=== PATIENT | female | born 1940 | race Caucasian/White ===

== ENCOUNTER 2016-07-17 17:41 | Inpatient (IN) | payer MEDICARE, MEDICAID ==
[~2016-07-17] VITALS: Ht 152.4 cm; Wt 57.8 kg
[~2016-07-17 17:41] MED LIST changes: -ASCO10006 PO; -CEFD300C3 PO; -FURO40TA4 PO; -MAGN500C15 PO; -MULT-868 PO; -RT-ALBUINH IH; -VITA150T PO
--- NOTE | 2016-07-17 18:30 | ED General ---
General Chief Complaint: General Problems/Pain Stated Complaint: LOW HEMOGLOBIN Source of Information: Patient, RN Notes Reviewed Exam Limitations: No Limitations History of Present Illness Time Seen by Provider: 18:25 Initial Comments Weakness and not feeling well since discharge in last 24 hours. States she has had a fever and is anemic. Timing/Duration: 24 Hours Severity: Moderate Modifying Factors: improves with Other (none) Associated Systoms: Cough Fever/Chills Malaise Shortness of Air Weakness Allergies and Home Medications Allergies Coded Allergies: No Allergy Information Available (Unverified , 07/14/16) Home Medications Aspirin 81 Mg Tabec 81 MG PO DAILY (Reported) Calcium Carbonate/Vitamin D3 1 Each Tablet 1 TAB PO BID (Reported) Cholecalciferol (Vitamin D3) 1,000 Unit Tablet 1,000 UNIT PO DAILY (Reported) Clopidogrel Bisulfate 75 Mg Tablet 75 MG PO DAILY (Reported) Furosemide 40 Mg Tablet #30 40 MG PO DAILY Prescribed by: JOHNY TRAN on 07/14/16 1119 Levothyroxine Sodium 200 Mcg Tablet 200 MCG PO DAILY (Reported) Magnesium Oxide 400 Mg Tablet 400 MG PO BID (Reported) Metoprolol Succinate 50 Mg Tab.er.24h 50 MG PO BID (Reported) Phenytoin Sodium Extended 30 Mg Capsule 30 MG PO BID (Reported) Simvastatin 20 Mg Tablet 20 MG PO HS (Reported) Constitutional: see HPI fever malaise weakness Respiratory: see HPI cough dyspnea on exertion short of breath Cardiovascular: see HPI edema : No Psychiatric/Neurological: See HPI Weakness Hematologic/Lymphatic: See HPI Anemia All Other Systems Reviewed Negative Unless Noted: Yes (Negative excepted noted.) Past Lrbybqc-Noiqba-Wjcfce Hx Patient Social History Recent Foreign Travel: No Contact w/Someone Who Travel: No Recent Hopitalizations: No Immunizations Up To Date Tetanus Booster (TDap): Unknown Date of Pneumonia Vaccine: Jul 20, 2011 Date of Influenza Vaccine: Apr 22, 2016 Seasonal Allergies Seasonal Allergies: No Surgeries HX Surgeries: Yes (GASTRIC BYPASS) Surgeries: Section, Hysterectomy Respiratory Hx Respiratory Disorders: No Cardiovascular Hx Cardiac Disorders: Yes (pacemaker) Cardiac Disorders: Hypertension Neurological Hx Neurological Disorders: Yes Neurological Disorders: Seizure Disorder Reproductive System Hx Reproductive Disorders: No Sexually Transmitted Disease: No HIV/AIDS: 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 Genitourinary Hx Genitourinary Disorders: No Gastrointestinal Hx Gastrointestinal Disorders: No Musculoskeletal Hx Musculoskeletal Disorders: No Endocrine Hx Endocrine Disorders: No HEENT HX ENT Disorders: Yes HEENT Disorders: Cataract Cancer Hx Cancer: No Psychosocial Hx Psychiatric Problems: Yes Behavioral Health Disorders: Anxiety Integumentary HX Skin/Integumentary Disorder: No Blood Transfusions Hx Blood Disorders: No Family Medical History Family Medial History: Cardiovascular disease Completed stroke Hypertension Seizure disorder No Family History of: AIDS Abdominal aortic aneurysm [place]'s disease Alcoholism Alzheimer's disease Aphasia Arthritis Asthma Cancer of mouth Cataracts Colon cancer Congenital disease Congenital heart disease Coronary thrombosis Cystic fibrosis Deafness or hearing loss Dementia Diabetes mellitus Drug abuse Dysphasia Fibrocystic disease of breast Gastroenteritis Glaucoma Headache disorder Hypercholesterolemia Infertility Kidney disease Myocardial infarction Neoplasm Not obtainable due to adoption Osteoporosis Parkinson's disease Prostate cancer Psychosocial problem Respiratory disorder Severe allergy Thyroid disease Tuberculosis Visual disorder Physical Exam Vital Signs Vital Sign - Last 12Hours 07/17/16 18:26 Temp 100.0 Pulse 82 Resp 18 B/P 113/70 Pulse Ox 98 O2 Delivery Nasal Cannula Capillary Refill : General Appearance: No Apparent Distress WD/WN Respiratory: No Respiratory Distress Cardiovascular: Regular Rate, Rhythm Gastrointestinal: Non Tender Rectal: Deferred Extremity: Pedal Edema Neurologic/Psychiatric: Alert Oriented x3 No Motor/Sensory Deficits Depressed Affect Skin: Warm/Dry Progress/Results/Core Measures Results/Orders Lab Results Laboratory Tests Test 07/17/16 19:00 07/17/16 20:47 07/18/16 03:40 07/18/16 07:55 Range/Units B-Type Natriuretic Peptide 1350.6 H <100.0 PG/ML Lactic Acid Level 1.1 0.5-2.0 MMOL/L Phenytoin (Dilantin) Level 2.2 L 10.0-20.0 UG/ML Troponin I < 0.30 <0.30 NG/ML Urine Bacteria TRACE /HPF Urine Bilirubin NEGATIVE NEGATIVE Urine Casts NONE /LPF Urine Clarity CLEAR Urine Color YELLOW Urine Crystals NONE /LPF Urine Culture Indicated YES Urine Glucose (UA) NEGATIVE NEGATIVE Urine Ketones NEGATIVE NEGATIVE Urine Leukocyte Esterase 3+ H NEGATIVE Urine Mucus NEGATIVE /LPF Urine Nitrite NEGATIVE NEGATIVE Urine Protein 2+ H NEGATIVE Urine RBC 25-50 H /HPF Urine RBC (Auto) 4+ H NEGATIVE Urine Specific [place] 1.010 L 1.016-1.022 Urine Squamous Epithelial Cells 5-10 /HPF Urine Urobilinogen NORMAL NORMAL MG/DL Urine WBC 10-25 H /HPF Urine pH 6.5 5-9 Stool Occult Blood Immunoassay POSITIVE H NEGATIVE Basophils # (Auto) 0.0 0.0-0.1 10^3/uL Basophils (%) (Auto) 0 0-10 % Eosinophils # (Auto) 0.3 0.0-0.3 10^3/uL Eosinophils (%) (Auto) 5 0-10 % Hematocrit 33 L 35-52 % Hemoglobin 10.1 #L 11.5-16.0 G/DL Lymphocytes # (Auto) 1.0 1.0-4.0 X 10^3 Lymphocytes (%) (Auto) 14 12-44 % Mean Corpuscular Hemoglobin 27 25-34 PG Mean Corpuscular Hemoglobin Concent 31 L 32-36 G/DL Mean Corpuscular Volume 89 80-99 FL Mean Platelet Volume 11.2 H 7.4-10.4 FL Monocytes # (Auto) 0.9 0.0-1.0 X 10^3 Monocytes (%) (Auto) 12 0-12 % Neutrophils # (Auto) 5.0 1.8-7.8 X 10^3 Neutrophils (%) (Auto) 70 42-75 % Platelet Count 205 130-400 10^3/uL Red Blood Count 3.70 L 4.35-5.85 10^6/uL Red Cell Distribution Width 16.4 H 10.0-14.5 % White Blood Count 7.2 4.3-11.0 10^3/uL Test 07/18/16 11:30 Range/Units Stool Occult Blood Immunoassay POSITIVE H NEGATIVE Micro Results Microbiology 07/17/16 Blood Culture - Preliminary, Resulted No growth 07/17/16 Blood Culture - Preliminary, Resulted No growth 07/17/16 Influenza Types A,B Antigen (AMBROSE) - Final, Complete 07/17/16 Urine Culture - Preliminary, Resulted NO GROWTH My Orders Orders-WILVER LANDA DO Saline Lock/Iv-Start (07/17/16 18:31) Ekg Tracing (07/17/16 18:31) BNP (07/17/16 18:31) Lactic Acid Analyzer (07/17/16 18:31) Troponin I (07/17/16 18:31) Ua Culture If Indicated (07/17/16 18:31) Blood Culture (07/17/16 18:31) Influenza A And B Antigens (07/17/16 18:31) Chest 1 View, Ap/Pa Only (07/17/16 18:31) Type And Screen (07/17/16 18:31) Red Cells Leukocytes Reduced (07/17/16 18:31) Cefepime Injection (Maxipime Injection) (07/17/16 20:45) Urine Culture (07/17/16 20:47) Vital Signs/I&O Vital Sign - Last 12Hours 07/18/16 07/18/16 07/18/16 07/18/16 16:00 19:00 20:00 20:03 Temp 99.3 Pulse 92 101 Resp 20 B/P 124/61 Pulse Ox 91 95 90 O2 Delivery Nasal Cannula Nasal Cannula Nasal Cannula O2 Flow Rate 3.00 3.00 3.00 07/18/16 07/18/16 07/19/16 07/19/16 20:51 23:15 00:00 00:10 Temp 98.2 99.3 Pulse 108 96 Resp 20 17 B/P 126/60 128/73 Pulse Ox 91 92 83 93 O2 Delivery Nasal Cannula Nasal Cannula Nasal Cannula Nasal Cannula O2 Flow Rate 3.00 3.00 3.00 3.00 07/19/16 00:59 Pulse 99 ECG Initial ECG Impression Date: Jul 17, 2016 Initial ECG Impression Time: 18:48 Initial ECG Rate: 82 Initial ECG Rhythm: Normal Sinus Initial ECG Impression: Nonspecific Changes Comment RAD Diagnostic Imaging Diagonstic Imaging: Xray Plain Films/CT/US/NM/MRI: chest (? infiltrate right base; no CHF) Departure Communication Time/Spoke to Admitting Phy: 21:00 Impression Impression: Primary Impression: Anemia Additional Impressions: Weakness generalized Acute on chronic renal insufficiency UTI (urinary tract infection) Disposition: ADMITTED INPATIENT Condition: Stable Decision to Admit/Date: Jul 17, 2016 Time/Decision to Admit Time: 21:00 Departure-Patient Inst. Referrals: NO,LOCAL PHYSICIAN (PCP/Family) Primary Care Physician WILVER LANDA DO Jul 17, 2016 18:30
--- NOTE | 2016-07-17 20:19 | Diagnostic Imaging Report ---
EXAMINATION: Portable erect AP chest at 7:39 PM INDICATION: Weakness and cough The cardiomegaly and the left-sided defibrillator device seen on the prior exam of 07/15/16 are again evident and not significantly changed. The interstitial densities in both lungs do not seem quite as prominent as on the prior exam. There is no evidence for failure at this time. The right hemidiaphragm is somewhat indistinct and there may be an element of small amount of atelectasis/infiltrate and/or fluid in this area. The mediastinum is not widened. The osseous structures are intact. IMPRESSION: 1. There may be a small amount of atelectasis/infiltrate and fluid involving the right lung base. If further study is desired, then a followup PA and lateral chest would be recommended. 2. The mild pulmonary congestion noted previously has resolved. There is no acute abnormality identified otherwise. Dictated by: Dictated on workstation # [id number]
[2016-07-17] MEDS ORDERED: CEFEPIME INJECTION 2,000 MG in NORMAL SALINE (BAXTER MINI) 50 ML IV ONE (20:45)
[2016-07-17 20:57] LABS: BILIRUBIN,URINE NEGATIVE (NEGATIVE); KETONES,URINE NEGATIVE (NEGATIVE); LEUKOCYTE ESTERASE ,URINE 3+ (NEGATIVE); NITRITE,URINE NEGATIVE (NEGATIVE); PH,URINE 6.5 (5-9); PROTEIN,URINE 2+ (NEGATIVE); UROBILINOGEN,URINE NORMAL (NORMAL)
[2016-07-17 22:45] VITALS: BP 115/64
[2016-07-17] MEDS ORDERED: NS IV 1000 ML 1,000 ML ONE (23:17)
[2016-07-17 23:47] VITALS: BP 107/65
[2016-07-17 23:52] VITALS: BP 107/65
[2016-07-18] VITALS (9 sets, daily range): BP systolic 105–126; BP diastolic 56–69
[2016-07-18] MEDS ORDERED: RT-ALBUTEROL SULF 2.5 MG/3 ML PRE-MIX VIAL INH PRN
[2016-07-18] MEDS ORDERED: VANCOMYCIN 1 GM ADD-VANTAGE VIAL IV ONE (01:41)
[2016-07-18] MEDS ORDERED: SODIUM CHLORIDE (ADD-VANTAGE) 250 ML ONE (01:41)
[2016-07-18] MEDS ORDERED: LEVOFLOXACIN 750 MG/150 ML D5W (PRE-MIX) IV SCH (01:45)
[2016-07-18] MEDS ORDERED: TEMAZEPAM 15 MG (RESTORIL) CAP PO PRN (01:45)
[2016-07-18] MEDS ORDERED: FUROSEMIDE 40 MG/4 ML INJ (LASIX) IV PRN (01:45)
[2016-07-18] MEDS ORDERED: VANCOMYCIN 1 GM/NS 250 ML IVPB IV SCH ×4 (01:45→21:00)
[2016-07-18] MEDS ORDERED: FUROSEMIDE 40 MG/4 ML INJ (LASIX) IVP ONE (03:00)
[2016-07-18] MEDS ORDERED: CATHETER FLUSH 10 ML SYR IV PRN (07:45)
[2016-07-18] MEDS ORDERED: NS IV 1000 ML 1,000 ML IV SCH (07:45)
[2016-07-18 08:05] LABS: BASOPHILS % (AUTO) 0 % (0-10); EOSINOPHILS # (AUTO) 0.3 10^3/uL (0.0-0.3); EOSINOPHILS % (AUTO) 5 % (0-10); LYMPHOCYTES % (AUTO) 14 % (12-44); MEAN CORPUSCULAR HEMOGLOBIN 27 PG (25-34); MEAN CORPUSCULAR HGB CONC 31 G/DL (32-36); MEAN CORPUSCULAR VOLUME 89 FL (80-99); MEAN PLATELET VOLUME 11.2 FL (7.4-10.4); MONOCYTES # (AUTO) 0.9 X 10^3 (0.0-1.0); MONOCYTES % (AUTO) 12 % (0-12); NEUTROPHILS % (AUTO) 70 % (42-75); PLATELET COUNT 205 10^3/uL (130-400); RED CELL DISTRIBUTION WIDTH 16.4 % (10.0-14.5); WHITE BLOOD COUNT 7.2 10^3/uL (4.3-11.0)
[2016-07-18] MEDS ORDERED: CEFEPIME HCL 2 GM (MAXIPIME) VIAL ONE (09:25)
[2016-07-18] MEDS ORDERED: NORMAL SALINE (BAXTER MINI) 50 ML IV ONE (09:25)
[2016-07-18] MEDS: CATHETER FLUSH 10 ML SYR IV SCH ×2 (09:34→22:46)
[2016-07-18] MEDS ORDERED: CEFEPIME 2 GM/NS 50 ML IVPB IV SCH ×2 (10:00)
--- NOTE | 2016-07-18 11:18 | History & Physical-Hospitalist ---
HPI History of Present Illness: HPI/Chief Complaint The patient is a 75-year-old white female who had been hospitalized last week. She was discharged on 07/14 but she did not leave until 07/15. she returned on 07/17 to the ER complaining of being just generally weak. That had been the substance of her complaints previously. She had a workup for heart disease as she had a previous history of heart disease including stents and a pacemaker. That proved to be stable. It was noted at that time that she had consistent creatinine in the mid 2 range. A search of records previous to that showed that she had been in the 1.3 range in 2015. Her BNP was 2000 and the chest x- ray was consistent with early interstitial edema. She was not taking a diuretic and responded nicely to Lasix. She was informed at discharge that she would need to see the hematology for consideration of erythropoietin and ultimately would need to see nephrology as well. She returned with the complaints of continuing to feel weak. She had refused to consider any plan for residential or home health care. Source: patient Exam Limitations: no limitations Date Seen 07/18/16 Attending Physician Greta Philippe DO PCP No,Local Physician Referring Physician Date of Admission Jul 17, 2016 at 21:06 Home Medications & Allergies Home Medications Reviewed patient Home Medication Reconciliation Form Allergies Coded Allergies: No Allergy Information Available (Unverified , 07/14/16) Past Wgbneoh-Mrkhvl-Wtqmij Hx Patient Social History Alcohol Use: Denies Use Recreational Drug Use: No Smoking Status: Never a Smoker Physical Abuse Screen: No Sexual Abuse: No Recent Foreign Travel: No Contact w/other who traveled: No Recent Hopitalizations: No Recent Infectious Disease Expo: No Immunizations Up To Date Tetanus Booster (TDap): Unknown Date of Pneumonia Vaccine: Jul 20, 2011 Date of Influenza Vaccine: Apr 22, 2016 Seasonal Allergies Seasonal Allergies: No Surgeries HX Surgeries: Yes (GASTRIC BYPASS) Surgeries: Section, Hysterectomy Respiratory Hx Respiratory Disorders: No Cardiovascular Hx Cardiovascular Disorders: Yes (pacemaker) Cardiac Disorders: Hypertension Neurological Hx Neurological Disorders: Yes Neurological Disorders: Seizure Disorder Reproductive System : No Hx Reproductive Disorders: No Sexually Transmitted Disease: No HIV/AIDS: No Genitourinary Hx Genitourinary Disorders: Yes (chronic renal insufficiency) Gastrointestinal Hx Gastrointestinal Disorders: No Musculoskeletal Hx Musculoskeletal Disorders: No Endocrine Hx Endocrine Disorders: No HEENT HX ENT Disorders: Yes HEENT Disorders: Cataract Cancer Hx Cancer: No Psychosocial Hx Psychiatric Problems: Yes Behavioral Health Disorders: Anxiety Integumentary HX Skin/Integumentary Disorder: No Blood Transfusions Hx Blood Disorders: No Family Medical History Family Hx: Cardiovascular disease Completed stroke Hypertension Seizure disorder No Family History of: AIDS Abdominal aortic aneurysm [place]'s disease Alcoholism Alzheimer's disease Aphasia Arthritis Asthma Cancer of mouth Cataracts Colon cancer Congenital disease Congenital heart disease Coronary thrombosis Cystic fibrosis Deafness or hearing loss Dementia Diabetes mellitus Drug abuse Dysphasia Fibrocystic disease of breast Gastroenteritis Glaucoma Headache disorder Hypercholesterolemia Infertility Kidney disease Myocardial infarction Neoplasm Not obtainable due to adoption Osteoporosis Parkinson's disease Prostate cancer Psychosocial problem Respiratory disorder Severe allergy Thyroid disease Tuberculosis Visual disorder Review of Systems Constitutional: see HPI Respiratory: cough dyspnea on exertion Cardiovascular: no symptoms reported Gastrointestinal: no symptoms reported Genitourinary: no symptoms reported Musculoskeletal: muscle weakness Skin: no symptoms reported Psychiatric/Neurological: No Symptoms Reported Physical Exam Physical Exam Vital Signs Capillary Refill : Less Than 3 Seconds General Appearance: Mild Distress Eyes: Bilateral Eye Normal Inspection HEENT: Normal ENT Inspection Neck: Normal Inspection Cardiovascular: Regular Rate, Rhythm No Edema No Gallop No JVD No Murmur Normal Peripheral Pulses Other (Paced ) Gastrointestinal: Normal Bowel Sounds No Organomegaly No Pulsatile Mass Non Tender Soft Back: Normal Inspection No CVA Tenderness No Vertebral Tenderness Neurologic/Psychiatric: Alert Oriented x3 No Motor/Sensory Deficits Normal Mood/Affect Other (the patient appears unable or unwilling to consider any plan of outpatient supportive care) Skin: Normal Color Warm/Dry Lymphatic: No Adenopathy Results Results/Procedures Lab Assessment/Plan Admission Diagnosis 1.anemia secondary to chronic renal failure. 2.chronic renal failure. 3.COPD. 4.deconditioning Assessment and Plan Transfusion. 2.consultation hematology for consideration of erythropoietin Clinical Quality Measures DVT/VTE Risk/Contraindication: Risk Factor Score Per Nursin RFS Level Per Nursing on Admit: 4+=Very High GUILLERMO LAU MD Jul 18, 2016 11:18 Laboratory Tests 07/18/16 07:55 Clinical Quality Measures DVT/VTE Risk/Contraindication: Risk Factor Score Per Nursin RFS Level Per Nursing on Admit: 4+=Very High GUILLERMO LAU MD Jul 18, 2016 11:18
[2016-07-18] MEDS: RT-ALBUTEROL SULF 2.5 MG/3 ML PRE-MIX VIAL INH SCH ×2 (13:21→20:03)
--- NOTE | 2016-07-18 13:41 | Consultation-Cardiology ---
HPI-Cardiology Cardiology Consultation: Date of Consultation 07/18/16 Date of Admission Attending Physician Greta hPilippe DO Admitting Physician Lavonne,Local Physician Consulting Physician Yaneli LISA MD HPI: Chief Complaint: "feeling rotten" This is a 75 year old lady who was recently discharged from the hospital. She had presented with diastolic heart failure, anemia, acute on chronic renal failure. She presents with "feeling rotten". Her Echocardiogram done very recently showed LVH with hyperdynamic EF. Diastolic dysfunction is very likely. Review of Systems-Cardiology Review of Systems Constitutional: malaise tiredness Eyes: No As described under HPI, No no symptoms reported, No blindness, No blurred vision, No contact lenses, No drainage, No decreased acuity, No foreign body sensation, No glasses, No inflammation, No pain, No photophobia, No previous injury, No shadows, No tunnel vision, No other, No vision change Ears/Nose/Throat: No As described under HPI, No no symptoms reported, No chronic hearing loss, No epistaxis, No ear discharge, No ear pain, No loose teeth, No mouth pain, No mouth swelling, No nasal drainage, No nose pain, No recent hearing loss, No throat pain, No throat swelling, No ulcerations, No other Respiratory: shortness of breath Cardiovascular: No no symptoms reported, No As described under HPI, No chest pain, No edema, No irregular heart rate, No lightheadedness, No palpitations, No syncope, No other Gastrointestinal: No no symptoms reported, No As described under HPI, No abdomen distended, No abdominal pain, No blood streaked bowels, No constipation , No diarrhea, No difficulty swallowing, No nausea, No poor appetite, No poor fluid intake, No rectal bleeding, No vomiting, No other, No nausea/vomiting/ diarrhea, No stool coloration changes Genitourinary: No no symptoms reported, No As described under HPI, No burning, No dysuria, No discharge, No frequency, No flank pain, No hematuria, No incontinence, No pain, No urgency, No other, No urine frequency changes, No urine coloration changes Musculoskeletal: No no symptoms reported, No As describe under HPI, No back pain, No gout, No joint pain, No joint swelling, No muscle pain, No muscle stiffness, No neck pain, No other Skin: No no symptoms reported, No As described under HPI, No change in color, No change in hair/nails, No dryness, No lesions, No lumps, No rash, No other, No skin related problems, No ulcerations, No rash on exposed areas, No ulcerations on exposed areas Psychiatric/Neurological: No As described under HPI, No anxiety, No depression , No emotional problems, No focal weakness, No headache, No no symptoms reported , No numbness, No other, No pre-existing deficit, No seizure, No syncope, No tingling, No tremors, No weakness Hematologic: anemia VSM-[id number]-Rgyeln Hx Patient Social History Alcohol Use: Denies Use Recreational Drug Use: No Smoking Status: Never a Smoker Recent Foreign Travel: No Recent Infectious Disease Expo: No Hospitalization with Isolation: Denies Physical Abuse Screen: No Sexual Abuse: No Immunizations Up To Date Tetanus Booster (TDap): Unknown Date of Pneumonia Vaccine: Jul 20, 2011 Date of Influenza Vaccine: Apr 22, 2016 Past Medical History PMH As described under Assessment. Family Medical History Family History: Cardiovascular disease Completed stroke Hypertension Seizure disorder No Family History of: AIDS Abdominal aortic aneurysm [place]'s disease Alcoholism Alzheimer's disease Aphasia Arthritis Asthma Cancer of mouth Cataracts Colon cancer Congenital disease Congenital heart disease Coronary thrombosis Cystic fibrosis Deafness or hearing loss Dementia Diabetes mellitus Drug abuse Dysphasia Fibrocystic disease of breast Gastroenteritis Glaucoma Headache disorder Hypercholesterolemia Infertility Kidney disease Myocardial infarction Neoplasm Not obtainable due to adoption Osteoporosis Parkinson's disease Prostate cancer Psychosocial problem Respiratory disorder Severe allergy Thyroid disease Tuberculosis Visual disorder Allergies and Home Medications Allergies Coded Allergies: No Allergy Information Available (Unverified , 07/14/16) Home Medications Aspirin 81 Mg Tabec 81 MG PO DAILY (Reported) Calcium Carbonate/Vitamin D3 1 Each Tablet 1 TAB PO BID (Reported) Cholecalciferol (Vitamin D3) 1,000 Unit Tablet 1,000 UNIT PO DAILY (Reported) Clopidogrel Bisulfate 75 Mg Tablet 75 MG PO DAILY (Reported) Furosemide 40 Mg Tablet #30 40 MG PO DAILY Prescribed by: GRETA PHILIPPE on 07/14/16 1119 Levothyroxine Sodium 200 Mcg Tablet 200 MCG PO DAILY (Reported) Magnesium Oxide 400 Mg Tablet 400 MG PO BID (Reported) Metoprolol Succinate 50 Mg Tab.er.24h 50 MG PO BID (Reported) Phenytoin Sodium Extended 30 Mg Capsule 30 MG PO BID (Reported) Simvastatin 20 Mg Tablet 20 MG PO HS (Reported) Physical Exam-Cardiology Physical Exam Vital Signs/I&O Vital Sign - Last 12Hours 07/18/16 07/18/16 07/18/16 07/18/16 08:55 10:07 12:30 13:00 Temp 98.5 Pulse 87 84 Resp 20 B/P 121/60 Pulse Ox 93 94 90 O2 Delivery Nasal Cannula Nasal Cannula O2 Flow Rate 3.00 3.00 07/18/16 07/18/16 07/18/16 07/18/16 13:21 16:00 19:00 20:03 Temp 99.3 Pulse 92 101 Resp 20 B/P 124/61 Pulse Ox 87 91 90 O2 Delivery Room Air Nasal Cannula Nasal Cannula O2 Flow Rate 3.00 3.00 Intake and Output 07/18/16 00:00 Intake Total 50 ml Balance 50 ml Capillary Refill : Less Than 3 Seconds Constitutional: No appears stated age, No AAO x 3, No apparent distress, No PERRL, No well-developed, No well-nourished, No other HEENT: No PERRL, No normal ENT inspection, No TMs normal, No pharynx normal, No scleral icterus (R), No scleral icterus (L), No pale conjunctivae (R), No pale conjunctivae (L), No photophobia, No TM abnormal (R), No TM abnormal (L), No pharyngeal erythema, No tonsillar exudate, No other, No discharge, No EOMI, No hearing is well preserved, No hard of hearing, No oral hygience is good, No ulceration, No xanthelasmas are seen Neck: No non-tender, No full range of motion, No supple, No normal inspection, No carotid bruit, No limited range of motion, No lymphadenopathy (R), No lymphadenopathy (L), No tender lateral, No tender midline, No thyromegaly, other (prominent neck veins)No carotid pulses are 2 + bilaterally, No with good upstrokes Respiratory: No accessory muscle use, No respiratory distress, No chest tender , No chest expansion is symmetric, No chest is bilaterally symmetric, No lungs clear to percussion, No lungs clear to auscultation, No crackles, No rhonchi, No rales, No stridor, No wheezing, No pleural rub, No other Cardiovascular: No regular rate-rhythm, No irregularly irregular, No extra beats, No parasternal heave is noted, No JVD, No edema, No bradycardia, No tachycardia, No point of maximal impulse, No cardiac thrills are palpable, No S1 and S2, No gallop/S3, No gallop/S4, No diastolic murmur, No systolic murmur, No friction rub, No click, No other Gastrointestinal: No tender, No soft, No round, No distended, No pulsatile mass , No organomegaly, No guarding, No rebound, No tenderness, No hernia, No mass, No audible bowel sounds, No abnormal bowel sounds, No abdominal bruits, No spleenomegaly, No other Rectal: deferred Extremities: pedal edema Neurologic/Psychiatric: No department mgr II-XII nml as tested, No no motor/sensory deficits, No alert, No normal mood/affect, No oriented x 3, No abnormal cerebellar tests, No abnormal department mgr II-XII, No abnormal gait, No aphasia, No EOM palsy, No facial droop, No motor weakness, No sensory deficit, No depressed affect, No disoriented x 3, No other, No grossly intact, No power is 5/5 both on sides Skin: No normal color, No warm/dry, No cyanosis, No cool, No diaphoresis, No damp, No ecchymosis, No jaundice, No mottled, No pallor, No rash, No tattoos/ piercings, No ulcerations, No rash on exposed areas, No ulcerations on exposed areas, No other Data Review Labs Laboratory Tests 07/17/16 20:47: Urine Bacteria TRACE, Urine Bilirubin NEGATIVE, Urine Casts NONE, Urine Clarity CLEAR, Urine Color YELLOW, Urine Crystals NONE, Urine Culture Indicated YES, Urine Glucose (UA) NEGATIVE, Urine Ketones NEGATIVE, Urine Leukocyte Esterase 3+ H, Urine Mucus NEGATIVE, Urine Nitrite NEGATIVE, Urine Protein 2+H, Urine RBC 25 -50H, Urine RBC (Auto) 4+H, Urine Specific [place] 1.010L, Urine Squamous Epithelial Cells 5-10, Urine Urobilinogen NORMAL, Urine WBC 10-25H, Urine pH 6.5 07/18/16 03:40: Stool Occult Blood Immunoassay POSITIVEH 07/18/16 07:55: Basophils # (Auto) 0.0, Basophils (%) (Auto) 0, Eosinophils # (Auto) 0.3, Eosinophils (%) (Auto) 5, Hematocrit 33L, Hemoglobin 10.1#L, Lymphocytes # (Auto ) 1.0, Lymphocytes (%) (Auto) 14, Mean Corpuscular Hemoglobin 27, Mean Corpuscular Hemoglobin Concent 31L, Mean Corpuscular Volume 89, Mean Platelet Volume 11.2H, Monocytes # (Auto) 0.9, Monocytes (%) (Auto) 12, Neutrophils # ( Auto) 5.0, Neutrophils (%) (Auto) 70, Platelet Count 205, Red Blood Count 3.70L , Red Cell Distribution Width 16.4H, White Blood Count 7.2 07/18/16 11:30: Stool Occult Blood Immunoassay POSITIVEH Microbiology 07/17/16 Blood Culture - Preliminary, Resulted No growth 07/17/16 Influenza Types A,B Antigen (AMBROSE) - Final, Complete 07/17/16 Urine Culture - Preliminary, Resulted NO GROWTH ECG Impression ECG Initial ECG Rhythm: Normal Sinus A/P-Cardiology Assessment/Admission Diagnosis acute on chronic renal failure, anemia, diastolic dysfunction Plan I believe she is not in florid heart failure. Her BNP is better then on her last admission. low dose lasix is ok but targeting significant negative output may result in further worsening of renal insufficiency. Thank you for your consultation. Please call me if you have any questions. Samson Lisa MD, FACP, FACC, FSCAI, FHRS, CCDS Interventional Cardiology Cardiac Electrophysiology Vascular Medicine and Endovascular Interventions Clinical Quality Measures DVT/VTE Risk/Contraindication: Risk Factor Score Per Nursin RFS Level Per Nursing on Admit: 4+=Very High Yaneli LISA MD Jul 18, 2016 1:41 pm
[2016-07-18] MEDS ORDERED: DARBEPOETIN 40 MCG/ML (ARANESP) 1 ML VIAL SC ONE (14:00)
--- NOTE | 2016-07-18 14:49 | Oncology Consultation ---
Visit Information Visit Information Date of Admission Jul 17, 2016 at 21:06 Attending Physician Greta Philippe DO Admitting Physician No,Local Physician Chief Complaint Anemia, chronic renal failure, ? benefit EPO injection Interval History The patient is a 75-year-old white female who was admitted with general weakness , CHF, acute on chronic renal insufficiency. She had a workup for heart disease as she had a previous history of heart disease including stents and a pacemaker. That proved to be's stable. It was noted at that time that she had consistent creatinine in the mid 2 range. Her Cr was 1.3 range in 2015. Her BNP was 2000 and the chest x-ray was consistent with early interstitial edema. She was not taking a diuretic and responded nicely to Lasix. She was informed from last week at discharge that she would need to see the hematology for consideration of erythropoietin and ultimately would need to see nephrology as well. She returned with the complaints of continuing to feel weak. She had refused to consider in the plan for long-term or home health care. She also has a lot of issues with her male friend who put her health issues on the Facebook. She is very upset about it. I consulted the patient on: 07/18/16 14:43 Constitutional: weakness EENTM: no symptoms reported Respiratory: cough short of breath Cardiovascular: edema palpitations Gastrointestinal: no symptoms reported Genitourinary: no symptoms reported Health Status Allergies Coded Allergies: No Allergy Information Available (Unverified , 07/14/16) Home Medications Aspirin (Aspirin Ec 81 Mg) 81 Mg Tabec 81 MG PO DAILY (Reported) Calcium Carbonate/Vitamin D3 (Calcium 600 + D Caplet) 1 Each Tablet 1 TAB PO BID (Reported) Cholecalciferol (Vitamin D3) (Vitamin D3) 1,000 Unit Tablet 1,000 UNIT PO DAILY (Reported) Clopidogrel Bisulfate (Clopidogrel) 75 Mg Tablet 75 MG PO DAILY (Reported) Furosemide (Lasix) 40 Mg Tablet #30 40 MG PO DAILY Prescribed by: GRETA PHILIPPE on 07/14/16 1119 Levothyroxine Sodium (Levothyroxine Sodium) 200 Mcg Tablet 200 MCG PO DAILY ( Reported) Magnesium Oxide (Mag Ox 400) 400 Mg Tablet 400 MG PO BID (Reported) Metoprolol Succinate (Metoprolol Succinate) 50 Mg Tab.er.24h 50 MG PO BID ( Reported) Phenytoin Sodium Extended (Dilantin) 30 Mg Capsule 30 MG PO BID (Reported) Simvastatin (Simvastatin) 20 Mg Tablet 20 MG PO HS (Reported) [id number] Hx Patient Social History Alcohol Use: Denies Use Recreational Drug Use: No Smoking Status: Never a Smoker Recent Foreign Travel: No Contact w/other who traveled: No Recent Infectious Disease Expo: No Recent Hopitalizations: No Physical Abuse Screen: No Sexual Abuse: No Immunizations Up To Date Tetanus Booster (TDap): Unknown Date of Pneumonia Vaccine: Jul 20, 2011 Date of Influenza Vaccine: Apr 22, 2016 Family Medical History Family History: Cardiovascular disease Completed stroke Hypertension Seizure disorder No Family History of: AIDS Abdominal aortic aneurysm [place]'s disease Alcoholism Alzheimer's disease Aphasia Arthritis Asthma Cancer of mouth Cataracts Colon cancer Congenital disease Congenital heart disease Coronary thrombosis Cystic fibrosis Deafness or hearing loss Dementia Diabetes mellitus Drug abuse Dysphasia Fibrocystic disease of breast Gastroenteritis Glaucoma Headache disorder Hypercholesterolemia Infertility Kidney disease Myocardial infarction Neoplasm Not obtainable due to adoption Osteoporosis Parkinson's disease Prostate cancer Psychosocial problem Respiratory disorder Severe allergy Thyroid disease Tuberculosis Visual disorder Physical Exam Vital Signs Vital Sign - Last 12Hours 07/17/16 18:26 Temp 100.0 Pulse 82 Resp 18 B/P 113/70 Pulse Ox 98 O2 Delivery Nasal Cannula Capillary Refill : Less Than 3 Seconds General Appearance: No Apparent Distress HEENT: PERRL/EOMI Neck: Non Tender Supple Respiratory: Lungs Clear No Accessory Muscle Use No Respiratory Distress Cardiovascular: No JVD No Murmur Gastrointestinal: Non Tender Soft Extremity: Swelling (1+ pitting edema both ankles) Neurologic/Psychiatric: Alert Oriented x3 Other (pt was crying and emotional) Data Review Labs Laboratory Tests 07/18/16 07:55 Laboratory Tests 07/17/16 19:00: B-Type Natriuretic Peptide 1350.6H 07/17/16 20:47: Urine Leukocyte Esterase 3+H, Urine Protein 2+H, Urine RBC 25-50H, Urine RBC ( Auto) 4+H, Urine Specific [place] 1.010L, Urine WBC 10-25H 07/18/16 03:40: Stool Occult Blood Immunoassay POSITIVEH 07/18/16 07:55: Hematocrit 33L, Hemoglobin 10.1#L, Mean Corpuscular Hemoglobin Concent 31L, Mean Platelet Volume 11.2H, Red Blood Count 3.70L, Red Cell Distribution Width 16.4H 07/18/16 11:30: Stool Occult Blood Immunoassay POSITIVEH Impression & Plan Impression & Plan IMP: 1. Acute on chronic renal insufficiency, 2. Anemia, s/p 2 units of RBC and Hb is up from 7.4 to 10.1 3. CAD, possible pulmonary edema 4. Pace maker 5. family and social issue Plan: 1. Aranesp 40mcg sq today and can be repeated in 2 weeks if her Hb is below 9 again 2. I will see her as out-pt for follow up in 2-4 weeks. 3. See fitness club manager when discharge 4. Cast Iron Dipper consult. 5. industrial relations worker for discharge plan. 6. Because of recent transfusion, I will not iron study at this point. JERRY RUBALCAVA MD Jul 18, 2016 14:49
[2016-07-19] VITALS: BP 128/73
[2016-07-19] MEDS: ACETAMINOPHEN 325 MG TABLET/CAPLET (TYLENOL) PO PRN ×2 (00:09→04:20)
[2016-07-19 04:00] VITALS: BP 148/75
[2016-07-19] MEDS: CATHETER FLUSH 10 ML SYR IV SCH (05:15)
[2016-07-19 06:00] VITALS: BP 148/75
[2016-07-19] MEDS: RT-ALBUTEROL SULF 2.5 MG/3 ML PRE-MIX VIAL INH SCH (06:58)
[2016-07-19 08:00] VITALS: BP 124/58
[2016-07-19] MEDS ORDERED: MAGN500C15 PO ×2 (09:18)
[2016-07-19] MEDS ORDERED: ASCO10006 PO ×2 (09:18)
[2016-07-19] MEDS ORDERED: RT-ALBUINH IH ×2 (09:18)
[2016-07-19] MEDS ORDERED: MULT-868 PO ×2 (09:18)
[2016-07-19] MEDS ORDERED: VITA150T PO ×2 (09:18)
[2016-07-19] MEDS ORDERED: FURO40TA4 PO ×2 (09:23)
[2016-07-19 12:00] VITALS: BP 140/68
--- NOTE | 2016-07-19 12:01 | Progress Note-Hospitalist ---
Standard Progress Note Progress Notes/Assess & Plan Date Seen 07/19/16 Assess & Plan/Chief Complaint The patient had a hemoglobin went to 10 with the [address] Rubalcava saw her yesterday for consideration of erythropoietin. She received her first dose of erythropoietin yesterday and will receive a second dose today. She was not eager to participate with physical therapy however ultimately did walk as satisfactorily in the holman. The urine culture shows multi floral gram positives in the urine. When informed that she has completed her inpatient needs she again became defensive about being weak and unable to care for herself. She however has been unwilling to consider short-term senior care placement while regaining her strength. Her lack of vigor is a function of her longer term decline both from a pulmonary status and renal function/chronic anemia status. Accordingly she will be discharged with home health nursing and physical therapy. I'm not optimistic that this will be a success. She will see Dr. RUBALCAVA in the hematology oncology clinic in a week for a scheduled erythropoietin dose. Physical exam: The patient exhibits some difficulty in focusing on the present and what she needs to do for herself. Lungs are clear to auscultation breath sounds are somewhat shallow. CV is regular. Abdomen is soft. Extremities show no pedal edema. Impression: Recent mild congestive failure. 2 COPD. 3 chronic renal failure. 4.chronic anemia secondary to number 3 Plan: Discharge with home health nursing and PT Labs Laboratory Tests 07/18/16 07:55 Final Diagnosis Chronic anemia secondary to renal failure. 2.chronic renal failure. 3.COPD. 4.deconditioning, multifactorial GUILLERMO LAU MD Jul 19, 2016 12:01
--- NOTE | 2016-07-19 12:12 | Discharge Inst-Home Health ---
Discharge Inst-to Home Health Patient Instructions Patient Instructions/FollowUp: Medications as detailed on the discharge list. Resume your oxygen and breathing treatments as before Home health nursing and physical therapy will be supplied you See Dr. Kline in one week at the cancer center. Patient Problems: COPD. 2. chronic renal failure with resultant anemia. 3.arteriosclerotic heart disease. 4.general deconditioning Goal: Stabilizing blood count. Arranging outpatient nephrology consultation. Physical therapy for strengthening and conditioning [facility], [place] DISCHARGE ORDERS Allergies: Coded Allergies: No Allergy Information Available (Unverified , 07/14/16) Height (Feet): 5 Height (Inches): 0.00 Weight (Pounds): 127 Weight (Ounces): 8.0 Home Health Need/Face to Face Reason Pt Homebound Chronic pulmonary disease plus anemia I Have Seen Pt [id number]: Yes Date of Face to Face: Jul 19, 2016 Discharged To: Home Diagnosis/Conditions HH Order: COPD. 2.chronic renal failure with resultant anemia. 3.arteriosclerotic heart disease. 4.general deconditioning y Consult/Follow Up/New Order *I certify that based on my findings, the following services are medically necessary Home Health Services: Yes Services: Nursing Services, Physical Therapy-Evaluate & Treat My clinical findings support the need for the above services; see Diagnosis. [facility] Orders Nursing for continuing medical issues, use of oxygen, drug administration, Physical therapy for moravian to ability to manage activities of daily living Dicharge Diet: Regular Diet Daily Activity as Tolerated: Yes Discharge Medications: New, Converted, or Re-newed RX: Transmited to Pharmacy I certify that this patient is under my care and that I, a nurse practitioner or a physician; a lpn or medical assistant working with me, had a face to face encounter that - meets the physician face to face encounter requirements with this patient as dated. GUILLERMO LAU MD Jul 19, 2016 12:12
[2016-07-19] MEDS ORDERED: CEFD300C3 PO ×2 (12:14)
--- NOTE | 2016-07-19 13:19 | Occ Therapy Progress Note ---
Therapy Progress Note Order received for OT eval and treat. Chart review completed. Attempted evaluation at 1310. Pt sitting in chair. Pt states she is exhausted and refused therapy at this time. Pt states she is being discharged today and has no questions or concerns, states she will have someone to assist her at home if needed. Pt sitting in chair with all needs met. 1, refused DENISHA RODRIGUEZ OT Jul 19, 2016 13:19
--- NOTE | 2016-07-19 13:31 | Physical Therapy Evaluation ---
PT Evaluation-General Medical Diagnosis Admission Date Jul 17, 2016 at 21:06 Medical Diagnosis: anemia Onset Date: Jul 17, 2016 Therapy Diagnosis Therapy Diagnosis: generalized weakness/debility Height/Weight Height (Feet): 5 Height (Inches): 0.00 Weight (Pounds): 127 Weight (Ounces): 8.0 Precautions Precautions/Isolations: Seizure, Fall Prevention Referral Physician: Shea Reason for Referral: Evaluation/Treatment Medical History Pertinent Medical History: CAD (pacemaker), HTN, MA Additional Medical History prior hospital stay last week with same c/o Current History DC to home 07/15 and returned 07/17/16 to ED with c/o generalized weakness Reviewed History: Yes Social History Home: Apartment Current Living Status: Alone Prior/Core FIM Prior Level of Function Functional [place] Measure 0=Not Assessed/NA 4=Minimal Assistance 1=Total Assistance 5=Supervision or Setup 2=Maximal Assistance 6=Modified [place] 3=Moderate Assistance 7=Complete [place] Bed Mobility: 6 Transfers (B,C,W/C) (FIM): 6 Gait: 6 PT Evaluation-Current Subjective Patient initially declined PT stating she was too tired and just wanted to go back to bed and sleep. After much encouragement, patient reluctantly agrees to PT. Pain Numeric Pain Scale: 0-No Pain Location: No Pain Reported Objective Patient Orientation: Normal For Age Problem Solving: Fair Attachments: Oxygen, IV ROM/Strength ROM Lower Extremities bilateral LE WFL Strenght Lower Extremities left LE 3/5 grossly; 3+/5 grossly right LE Integumentary/Posture Integumentary refer to nursing notes Bowel Incontinence: No Bladder Incontinence: No Posture WNL Neuromuscular (Tone, Coordination, Reflexes) diminished coordination due to inactivity PLOF Sensory Vision: Wears Glasses Hearing: Functional Sensation Right Lower Extremit: Impaired Sensation Left Lower Extremity: Impaired Transfers Functional [place] Measure 0=Not Assessed/NA 4=Minimal Assistance 1=Total Assistance 5=Supervision or Setup 2=Maximal Assistance 6=Modified [place] 3=Moderate Assistance 7=Complete [place] Transfers (B, C, W/C) (FIM): 5 Scootin Sit to/from Stand: 5 Gait Mode of Locomotion: Walk Anticipated Mode of Locomotion: Walk Gait (FIM): 5 Distance (FIM): 3=150 ft Distance: 150' Gait Level of Assist: 5 Gait Persons Needed: 1 Gait Assistive Device: FWW Comments/Gait Description steady, functional Balance Sitting Static: Normal Sitting Dynamic: Normal Standing Static: Normal Standing Dynamic: Normal Assessment/Needs 75 y.o. inactive female, will benefit from short term skilled PT to address functional strength and mobility to improve current LOF and to safely return to home with home health intervention at maximum LOF. Rehab Potential: Fair Post Rehab Potential-Barriers: activity level PT Short Term Goals Short Term Goals Time Frame: Jul 22, 2016 Transfers (B,C,W/C) (FIM): 6 Gait (FIM): 6 Distance (FIM): 3=150 ft Gait Level of Assist: 6 Gait Assistive Device: FWW PT Plan Problem List Problem List: Activity Tolerance, Functional Strength, Safety Treatment/Plan Treatment Plan: Continue Plan of Care Treatment Plan: Education, Functional Activity Brandy, Functional Strength, Gait , Safety, Therapeutic Exercise, Transfers Treatment Duration: Jul 22, 2016 # of days/week 4 Visits Per Week: 4 Pt/Family Agrees w/Plan: Yes Safety Risks/Education Patient Education: Disease Process, Safety Issues Teaching Recipient: Patient Teaching Methods: Discussion Response to Teaching: Verbalize Understanding, Reinforcement Needed Discharge Recommendations Therapy D/C Recommendations: Physical Therapy Home Care Time/GCodes Time In: 1125 Time Out: 1135 Total Billed Treatment Time: 10 Total Billed Treatment 1 visit EVL 10 min G Codes Necessary: MITESH Perez PT Jul 19, 2016 13:30
[2016-07-19 14:34] VITALS: BP 140/68
--- NOTE | 2016-07-20 14:44 | Physician Query-General Query ---
Physician Query-General Query to Physician: Please give final diagnosis thank you PHYSICIAN RESPONSE: Based on the clinical findings in the record, please respond to the query above on this document as an addendum. Possible, probable, or questionable diagnosis can be coded for INPATIENTS ONLY. Physician Response: If you have questions please contact: Electronic Design Engineer: Ext: Thank you for your time and cooperation. Clinical Brigadier/Electronic Design Engineer This is a permanent part of the medical record KAJAL GOODSON Jul 20, 2016 14:44
[2016-07-20] MEDS ORDERED: TROUGH ORDER-PHARMACY XX NR (20:00)
--- NOTE | 2016-07-26 14:48 | Physician Query-General Query ---
Physician Query-General Query to Physician: Please clarify if patient was in Acute Renal failure on admit thank you PHYSICIAN RESPONSE: Based on the clinical findings in the record, please respond to the query above on this document as an addendum. Possible, probable, or questionable diagnosis can be coded for INPATIENTS ONLY. Physician Response: Physician Response CHRONIC RENAL FAILURE, NO ACUTE COMPONENT If you have questions please contact: Press Assistant: Ext: Thank you for your time and cooperation. Clinical Seam Finisher/Press Assistant This is a permanent part of the medical record KAJAL GOODSON Jul 26, 2016 14:47 GUILLERMO LAU MD Aug 10, 2016 14:55
== END 2016-07-19 14:38 | disposition home health service (06) | DRG 292 ==
LOC: EDUNIT# 17:41 → ER 17:43 → ICU 21:06 → 4TH 22:17
PROVIDERS: ADMIT Internal Medicine; ATTEND Internal Medicine
DX: I13.0 Hypertensive heart and chronic kidney disease with heart failure and stage 1 through stage 4 chronic kidney disease, or unspecified chronic kidney disease (principal); N18.9 Chronic kidney disease, unspecified; D63.1 Anemia in chronic kidney disease; I50.30 Unspecified diastolic (congestive) heart failure; N39.0 Urinary tract infection, site not specified; G40.909 Epilepsy, unspecified, not intractable, without status epilepticus; F41.9 Anxiety disorder, unspecified; R53.1 Weakness; I25.10 Atherosclerotic heart disease of native coronary artery without angina pectoris; Z98.84 Bariatric surgery status; Z95.0 Presence of cardiac pacemaker
CPT/HCPCS: 36415; 71010; 80053; 80185; 81000; 82274; 83605; 83880; 84484; 85025; 86850; 86900; 86901; 86920; 87040; 87088; 87804; 93005; 94640; 94664; 94760; 96365

== ENCOUNTER → 2016-07-17 | Outpatient (CLI) | payer MEDICARE, MEDICAID ==
[~2016-07-17] MED LIST: ASCO10006 PO; ASP81TEC PO; ASPI-875 PO; CALC-80 PO; CEFD300C3 PO; CHOL100061 PO; CLOP75TA28 PO; FURO-124 PO; FURO40TA4 PO; KCL20TCR PO; LEVO200T6 PO; LEVO300T5 PO; MAGN400T6 PO; MAGN500C15 PO; METO-272 PO; MULT-868 PO; PHEN-633 PO; PHEN300C4 PO; PHEN30CA PO; RT-ALBUINH IH; SIMV20TA3 PO; VITA150T PO
[2016-07-17 15:56] LABS: BASOPHILS % (AUTO) 0 % (0-10); EOSINOPHILS # (AUTO) 0.4 10^3/uL (0.0-0.3); EOSINOPHILS % (AUTO) 6 % (0-10); LYMPHOCYTES # (AUTO) 1.2 X 10^3 (1.0-4.0); LYMPHOCYTES % (AUTO) 17 % (12-44); MEAN CORPUSCULAR HEMOGLOBIN 27 PG (25-34); MEAN CORPUSCULAR HGB CONC 29 G/DL (32-36); MEAN CORPUSCULAR VOLUME 92 FL (80-99); MEAN PLATELET VOLUME 11.1 FL (7.4-10.4); MONOCYTES % (AUTO) 14 % (0-12); NEUTROPHILS # (AUTO) 4.2 X 10^3 (1.8-7.8); NEUTROPHILS % (AUTO) 63 % (42-75); PLATELET COUNT 232 10^3/uL (130-400); RED BLOOD COUNT 2.79 10^6/uL (4.35-5.85); RED CELL DISTRIBUTION WIDTH 16.3 % (10.0-14.5); WHITE BLOOD COUNT 6.8 10^3/uL (4.3-11.0)
[2016-07-17 16:07] LABS: ALBUMIN 3.3 G/DL (3.2-4.5); BILIRUBIN,TOTAL 0.4 MG/DL (0.1-1.0); CALCIUM 7.9 MG/DL (8.5-10.1); CREATININE SERUM 1.72 MG/DL (0.60-1.30); POTASSIUM 4.3 MMOL/L (3.6-5.0); TOTAL PROTEIN 5.3 G/DL (6.4-8.2)
== END ==
LOC: HH 15:47
PROVIDERS: ATTEND Family Medicine
DX: D64.9 Anemia, unspecified (principal); I50.9 Heart failure, unspecified
CPT/HCPCS: 80053; 85025

== ENCOUNTER → 2016-07-20 | Outpatient (CLI) | payer MEDICARE, MEDICAID ==
[~2016-07-20] MED LIST changes: +ASCO10006 PO; +CEFD300C3 PO; +FURO40TA4 PO; +MAGN500C15 PO; +MULT-868 PO; +RT-ALBUINH IH; +VITA150T PO
[2016-07-20 15:11] LABS: BASOPHILS % (AUTO) 0 % (0-10); EOSINOPHILS # (AUTO) 0.4 10^3/uL (0.0-0.3); EOSINOPHILS % (AUTO) 5 % (0-10); LYMPHOCYTES # (AUTO) 1.3 X 10^3 (1.0-4.0); LYMPHOCYTES % (AUTO) 17 % (12-44); MEAN CORPUSCULAR HEMOGLOBIN 27 PG (25-34); MEAN CORPUSCULAR HGB CONC 30 G/DL (32-36); MEAN CORPUSCULAR VOLUME 92 FL (80-99); MEAN PLATELET VOLUME 11.7 FL (7.4-10.4); MONOCYTES % (AUTO) 14 % (0-12); NEUTROPHILS # (AUTO) 4.5 X 10^3 (1.8-7.8); NEUTROPHILS % (AUTO) 63 % (42-75); PLATELET COUNT 201 10^3/uL (130-400); RED BLOOD COUNT 3.43 10^6/uL (4.35-5.85); RED CELL DISTRIBUTION WIDTH 17.1 % (10.0-14.5); WHITE BLOOD COUNT 7.2 10^3/uL (4.3-11.0)
[2016-07-20 15:27] LABS: CALCIUM 8.2 MG/DL (8.5-10.1); CREATININE SERUM 1.67 MG/DL (0.60-1.30); POTASSIUM 4.1 MMOL/L (3.6-5.0)
== END ==
LOC: HH 15:04
PROVIDERS: ATTEND Internal Medicine
DX: I13.0 Hypertensive heart and chronic kidney disease with heart failure and stage 1 through stage 4 chronic kidney disease, or unspecified chronic kidney disease (principal); I50.9 Heart failure, unspecified; N18.9 Chronic kidney disease, unspecified
CPT/HCPCS: 80048; 85025

== ENCOUNTER → 2016-07-25 | Outpatient (CLI) | payer MEDICARE, MEDICAID ==
--- NOTE | 2016-07-26 12:06 | Physician Query-General Query ---
Physician Query-General Query to Physician: Please clarify if the patient was in acute renal failure on admit thank you PHYSICIAN RESPONSE: Based on the clinical findings in the record, please respond to the query above on this document as an addendum. Possible, probable, or questionable diagnosis can be coded for INPATIENTS ONLY. Physician Response: If you have questions please contact: Employee Relations Assistant: Ext: Thank you for your time and cooperation. Clinical Tour Consultant/Employee Relations Assistant This is a permanent part of the medical record KAJAL GOODSON Jul 26, 2016 12:06
== END ==
LOC: HH 15:54
PROVIDERS: ATTEND Family Medicine
DX: D64.9 Anemia, unspecified (principal)
CPT/HCPCS: 85014; 85018

== ENCOUNTER 2016-10-24 11:41 | Outpatient (RCR) | payer MEDICARE, MEDICAID ==
[2016-08-09 11:34] LABS: BASOPHILS % (AUTO) 0 % (0-10); EOSINOPHILS # (AUTO) 0.2 10^3/uL (0.0-0.3); EOSINOPHILS % (AUTO) 3 % (0-10); LYMPHOCYTES # (AUTO) 1.2 X 10^3 (1.0-4.0); LYMPHOCYTES % (AUTO) 15 % (12-44); MEAN CORPUSCULAR HEMOGLOBIN 27 PG (25-34); MEAN CORPUSCULAR HGB CONC 29 G/DL (32-36); MEAN CORPUSCULAR VOLUME 94 FL (80-99); MONOCYTES # (AUTO) 0.8 X 10^3 (0.0-1.0); MONOCYTES % (AUTO) 10 % (0-12); NEUTROPHILS # (AUTO) 5.8 X 10^3 (1.8-7.8); NEUTROPHILS % (AUTO) 72 % (42-75); PLATELET COUNT 309 10^3/uL (130-400); RED BLOOD COUNT 3.76 10^6/uL (4.35-5.85); RED CELL DISTRIBUTION WIDTH 19.8 % (10.0-14.5)
[2016-08-09 12:20] LABS: ALBUMIN 3.8 G/DL (3.2-4.5); BILIRUBIN,TOTAL 0.4 MG/DL (0.1-1.0); CALCIUM 8.9 MG/DL (8.5-10.1); CREATININE SERUM 1.92 MG/DL (0.60-1.30); TOTAL PROTEIN 6.4 G/DL (6.4-8.2)
[2016-08-09 12:41] LABS: THYROID STIMULATING HORMONE 29.99 UIU/ML (0.35-4.94)
[2016-08-09 14:07] LABS: %SAT TOTAL IRON BINDING CAPIC 8 % (15-50); TIBC 436 ug/dL (280-380)
[2016-08-10 07:39] LABS: FERRITIN 15 ng/mL (15-150); UIBC 402 ug/dL (55-450)
[2016-08-23 11:50] LABS: BASOPHILS % (AUTO) 0 % (0-10); EOSINOPHILS # (AUTO) 0.3 10^3/uL (0.0-0.3); EOSINOPHILS % (AUTO) 4 % (0-10); LYMPHOCYTES # (AUTO) 1.6 X 10^3 (1.0-4.0); LYMPHOCYTES % (AUTO) 24 % (12-44); MEAN CORPUSCULAR HEMOGLOBIN 27 PG (25-34); MEAN CORPUSCULAR HGB CONC 30 G/DL (32-36); MEAN CORPUSCULAR VOLUME 91 FL (80-99); MEAN PLATELET VOLUME 10.5 FL (7.4-10.4); MONOCYTES # (AUTO) 0.7 X 10^3 (0.0-1.0); MONOCYTES % (AUTO) 10 % (0-12); NEUTROPHILS # (AUTO) 4.1 X 10^3 (1.8-7.8); NEUTROPHILS % (AUTO) 62 % (42-75); PLATELET COUNT 239 10^3/uL (130-400); RED CELL DISTRIBUTION WIDTH 19.8 % (10.0-14.5); WHITE BLOOD COUNT 6.6 10^3/uL (4.3-11.0)
[2016-09-12 13:46] LABS: BASOPHILS % (AUTO) 0 % (0-10); EOSINOPHILS # (AUTO) 0.3 10^3/uL (0.0-0.3); EOSINOPHILS % (AUTO) 4 % (0-10); LYMPHOCYTES # (AUTO) 1.8 X 10^3 (1.0-4.0); LYMPHOCYTES % (AUTO) 26 % (12-44); MEAN CORPUSCULAR HEMOGLOBIN 27 PG (25-34); MEAN CORPUSCULAR HGB CONC 30 G/DL (32-36); MEAN CORPUSCULAR VOLUME 89 FL (80-99); MEAN PLATELET VOLUME 10.1 FL (7.4-10.4); MONOCYTES # (AUTO) 0.6 X 10^3 (0.0-1.0); MONOCYTES % (AUTO) 8 % (0-12); NEUTROPHILS # (AUTO) 4.4 X 10^3 (1.8-7.8); NEUTROPHILS % (AUTO) 62 % (42-75); PLATELET COUNT 358 10^3/uL (130-400); RED BLOOD COUNT 3.81 10^6/uL (4.35-5.85); RED CELL DISTRIBUTION WIDTH 19.8 % (10.0-14.5); WHITE BLOOD COUNT 7.1 10^3/uL (4.3-11.0)
[2016-09-12 14:16] LABS: ALBUMIN 3.8 G/DL (3.2-4.5); BILIRUBIN,TOTAL 0.4 MG/DL (0.1-1.0); CREATININE SERUM 1.76 MG/DL (0.60-1.30); POTASSIUM 3.9 MMOL/L (3.6-5.0); TOTAL PROTEIN 6.5 G/DL (6.4-8.2)
[2016-09-12 14:40] LABS: THYROID STIMULATING HORMONE 0.77 UIU/ML (0.35-4.94)
[~2016-10-24 11:41] MED LIST changes: +CYANOCOBALAMIN INJ 1000 MCG/ML (CANCER CENTER) ONE; +DARBEPOETIN 40 MCG/ML (ARANESP) 1 ML VIAL SC SCH
[2016-10-24 12:20] LABS: BASOPHILS % (AUTO) 0 % (0-10); EOSINOPHILS # (AUTO) 0.3 10^3/uL (0.0-0.3); EOSINOPHILS % (AUTO) 5 % (0-10); LYMPHOCYTES # (AUTO) 1.9 X 10^3 (1.0-4.0); LYMPHOCYTES % (AUTO) 27 % (12-44); MEAN CORPUSCULAR HEMOGLOBIN 27 PG (25-34); MEAN CORPUSCULAR HGB CONC 30 G/DL (32-36); MEAN CORPUSCULAR VOLUME 89 FL (80-99); MEAN PLATELET VOLUME 11.7 FL (7.4-10.4); MONOCYTES # (AUTO) 0.7 X 10^3 (0.0-1.0); MONOCYTES % (AUTO) 9 % (0-12); NEUTROPHILS # (AUTO) 4.4 X 10^3 (1.8-7.8); NEUTROPHILS % (AUTO) 60 % (42-75); PLATELET COUNT 285 10^3/uL (130-400); RED BLOOD COUNT 3.65 10^6/uL (4.35-5.85); RED CELL DISTRIBUTION WIDTH 17.2 % (10.0-14.5); WHITE BLOOD COUNT 7.3 10^3/uL (4.3-11.0)
== END 2016-11-07 | disposition home or self-care (01) ==
LOC: ONC 11:41
PROVIDERS: ATTEND Internal Medicine Hematology & Oncology
DX: N18.4 Chronic kidney disease, stage 4 (severe) (principal); D63.1 Anemia in chronic kidney disease; I13.0 Hypertensive heart and chronic kidney disease with heart failure and stage 1 through stage 4 chronic kidney disease, or unspecified chronic kidney disease; I50.9 Heart failure, unspecified; E03.9 Hypothyroidism, unspecified; D64.89 Other specified anemias; Z79.899 Other long term (current) drug therapy
CPT/HCPCS: 36415; 80053; 82728; 83540; 84443; 85025; 96372; 99213

== ENCOUNTER 2017-01-31 14:03 | Outpatient (RCR) | payer MEDICARE, MEDICAID ==
[2016-11-11 10:07] LABS: BASOPHILS % (AUTO) 0 % (0-10); EOSINOPHILS # (AUTO) 0.4 10^3/uL (0.0-0.3); EOSINOPHILS % (AUTO) 5 % (0-10); LYMPHOCYTES # (AUTO) 2.5 X 10^3 (1.0-4.0); LYMPHOCYTES % (AUTO) 29 % (12-44); MEAN CORPUSCULAR HEMOGLOBIN 26 PG (25-34); MEAN CORPUSCULAR HGB CONC 29 G/DL (32-36); MEAN CORPUSCULAR VOLUME 88 FL (80-99); MEAN PLATELET VOLUME 11.7 FL (7.4-10.4); MONOCYTES # (AUTO) 0.8 X 10^3 (0.0-1.0); MONOCYTES % (AUTO) 10 % (0-12); NEUTROPHILS # (AUTO) 4.8 X 10^3 (1.8-7.8); NEUTROPHILS % (AUTO) 56 % (42-75); PLATELET COUNT 303 10^3/uL (130-400); RED BLOOD COUNT 3.63 10^6/uL (4.35-5.85); RED CELL DISTRIBUTION WIDTH 17.6 % (10.0-14.5); WHITE BLOOD COUNT 8.5 10^3/uL (4.3-11.0)
[2016-11-11 10:30] LABS: ALBUMIN 4.1 G/DL (3.2-4.5); BILIRUBIN,TOTAL 0.7 MG/DL (0.1-1.0); CREATININE SERUM 2.02 MG/DL (0.60-1.30); POTASSIUM 4.2 MMOL/L (3.6-5.0); TOTAL PROTEIN 6.6 G/DL (6.4-8.2)
[2016-11-23 09:20] LABS: BASOPHILS % (AUTO) 1 % (0-10); EOSINOPHILS # (AUTO) 0.5 10^3/uL (0.0-0.3); EOSINOPHILS % (AUTO) 6 % (0-10); LYMPHOCYTES # (AUTO) 2.1 X 10^3 (1.0-4.0); LYMPHOCYTES % (AUTO) 27 % (12-44); MEAN CORPUSCULAR HEMOGLOBIN 25 PG (25-34); MEAN CORPUSCULAR HGB CONC 29 G/DL (32-36); MEAN CORPUSCULAR VOLUME 86 FL (80-99); MONOCYTES # (AUTO) 0.8 X 10^3 (0.0-1.0); MONOCYTES % (AUTO) 11 % (0-12); NEUTROPHILS # (AUTO) 4.4 X 10^3 (1.8-7.8); NEUTROPHILS % (AUTO) 56 % (42-75); PLATELET COUNT 375 10^3/uL (130-400); RED BLOOD COUNT 3.96 10^6/uL (4.35-5.85); RED CELL DISTRIBUTION WIDTH 18.7 % (10.0-14.5); WHITE BLOOD COUNT 7.8 10^3/uL (4.3-11.0)
[2016-12-07 09:49] LABS: BASOPHILS % (AUTO) 0 % (0-10); EOSINOPHILS # (AUTO) 0.4 10^3/uL (0.0-0.3); EOSINOPHILS % (AUTO) 5 % (0-10); LYMPHOCYTES # (AUTO) 1.6 X 10^3 (1.0-4.0); LYMPHOCYTES % (AUTO) 20 % (12-44); MEAN CORPUSCULAR HEMOGLOBIN 28 PG (25-34); MEAN CORPUSCULAR HGB CONC 29 G/DL (32-36); MEAN CORPUSCULAR VOLUME 95 FL (80-99); MEAN PLATELET VOLUME 12.1 FL (7.4-10.4); MONOCYTES # (AUTO) 0.7 X 10^3 (0.0-1.0); MONOCYTES % (AUTO) 9 % (0-12); NEUTROPHILS # (AUTO) 5.3 X 10^3 (1.8-7.8); NEUTROPHILS % (AUTO) 65 % (42-75); PLATELET COUNT 221 10^3/uL (130-400); RED BLOOD COUNT 3.87 10^6/uL (4.35-5.85); RED CELL DISTRIBUTION WIDTH 26.7 % (10.0-14.5); WHITE BLOOD COUNT 8.1 10^3/uL (4.3-11.0)
[2016-12-21 15:01] LABS: BASOPHILS % (AUTO) 0 % (0-10); EOSINOPHILS # (AUTO) 0.3 10^3/uL (0.0-0.3); EOSINOPHILS % (AUTO) 4 % (0-10); LYMPHOCYTES # (AUTO) 1.7 X 10^3 (1.0-4.0); LYMPHOCYTES % (AUTO) 27 % (12-44); MEAN CORPUSCULAR HEMOGLOBIN 29 PG (25-34); MEAN CORPUSCULAR HGB CONC 30 G/DL (32-36); MEAN CORPUSCULAR VOLUME 97 FL (80-99); MEAN PLATELET VOLUME 12.4 FL (7.4-10.4); MONOCYTES # (AUTO) 0.5 X 10^3 (0.0-1.0); MONOCYTES % (AUTO) 8 % (0-12); NEUTROPHILS # (AUTO) 3.9 X 10^3 (1.8-7.8); NEUTROPHILS % (AUTO) 61 % (42-75); PLATELET COUNT 198 10^3/uL (130-400); RED BLOOD COUNT 4.14 10^6/uL (4.35-5.85); WHITE BLOOD COUNT 6.4 10^3/uL (4.3-11.0)
[2016-12-28 13:42] LABS: BASOPHILS % (AUTO) 0 % (0-10); EOSINOPHILS # (AUTO) 0.3 10^3/uL (0.0-0.3); EOSINOPHILS % (AUTO) 5 % (0-10); LYMPHOCYTES % (AUTO) 27 % (12-44); MEAN CORPUSCULAR HEMOGLOBIN 30 PG (25-34); MEAN CORPUSCULAR HGB CONC 30 G/DL (32-36); MEAN CORPUSCULAR VOLUME 98 FL (80-99); MEAN PLATELET VOLUME 11.9 FL (7.4-10.4); MONOCYTES # (AUTO) 0.5 X 10^3 (0.0-1.0); MONOCYTES % (AUTO) 7 % (0-12); NEUTROPHILS # (AUTO) 4.5 X 10^3 (1.8-7.8); NEUTROPHILS % (AUTO) 61 % (42-75); PLATELET COUNT 219 10^3/uL (130-400); RED BLOOD COUNT 4.21 10^6/uL (4.35-5.85); RED CELL DISTRIBUTION WIDTH 23.6 % (10.0-14.5); WHITE BLOOD COUNT 7.4 10^3/uL (4.3-11.0)
[2017-01-03 13:52] LABS: BASOPHILS % (AUTO) 0 % (0-10); EOSINOPHILS # (AUTO) 0.3 10^3/uL (0.0-0.3); EOSINOPHILS % (AUTO) 5 % (0-10); LYMPHOCYTES # (AUTO) 1.9 X 10^3 (1.0-4.0); LYMPHOCYTES % (AUTO) 25 % (12-44); MEAN CORPUSCULAR HEMOGLOBIN 30 PG (25-34); MEAN CORPUSCULAR HGB CONC 30 G/DL (32-36); MEAN CORPUSCULAR VOLUME 97 FL (80-99); MEAN PLATELET VOLUME 12.6 FL (7.4-10.4); MONOCYTES # (AUTO) 0.5 X 10^3 (0.0-1.0); MONOCYTES % (AUTO) 6 % (0-12); NEUTROPHILS # (AUTO) 4.8 X 10^3 (1.8-7.8); NEUTROPHILS % (AUTO) 64 % (42-75); PLATELET COUNT 212 10^3/uL (130-400); RED BLOOD COUNT 4.44 10^6/uL (4.35-5.85); RED CELL DISTRIBUTION WIDTH 21.9 % (10.0-14.5); WHITE BLOOD COUNT 7.5 10^3/uL (4.3-11.0)
[2017-01-03 14:00] LABS: ALBUMIN 4.2 GM/DL (3.2-4.5); BILIRUBIN,TOTAL 0.7 MG/DL (0.1-1.0); CREATININE SERUM 1.83 MG/DL (0.60-1.30); ICTERUS -0.1 (-100-1.9); TOTAL PROTEIN 7.8 GM/DL (6.4-8.2)
[2017-01-03 14:05] LABS: POTASSIUM 5.5 MMOL/L (3.6-5.0)
[2017-01-18 09:50] LABS: BASOPHILS % (AUTO) 0 % (0-10); EOSINOPHILS # (AUTO) 0.5 10^3/uL (0.0-0.3); EOSINOPHILS % (AUTO) 6 % (0-10); LYMPHOCYTES # (AUTO) 1.8 X 10^3 (1.0-4.0); LYMPHOCYTES % (AUTO) 22 % (12-44); MEAN CORPUSCULAR HEMOGLOBIN 30 PG (25-34); MEAN CORPUSCULAR HGB CONC 31 G/DL (32-36); MEAN CORPUSCULAR VOLUME 97 FL (80-99); MEAN PLATELET VOLUME 11.9 FL (7.4-10.4); MONOCYTES # (AUTO) 0.7 X 10^3 (0.0-1.0); MONOCYTES % (AUTO) 8 % (0-12); NEUTROPHILS # (AUTO) 5.3 X 10^3 (1.8-7.8); NEUTROPHILS % (AUTO) 64 % (42-75); PLATELET COUNT 199 10^3/uL (130-400); RED BLOOD COUNT 4.29 10^6/uL (4.35-5.85); RED CELL DISTRIBUTION WIDTH 19.9 % (10.0-14.5); WHITE BLOOD COUNT 8.3 10^3/uL (4.3-11.0)
[~2017-01-31 14:03] MED LIST changes: +FERRIC CARBOXYMALTOSE (CANCER) 750 MG in NS (IVPB) CANCER CENTER 250 ML IV SCH
[2017-01-31 15:14] LABS: BASOPHILS % (AUTO) 0 % (0-10); EOSINOPHILS # (AUTO) 0.4 10^3/uL (0.0-0.3); EOSINOPHILS % (AUTO) 6 % (0-10); LYMPHOCYTES # (AUTO) 1.9 X 10^3 (1.0-4.0); LYMPHOCYTES % (AUTO) 27 % (12-44); MEAN CORPUSCULAR HEMOGLOBIN 30 PG (25-34); MEAN CORPUSCULAR HGB CONC 30 G/DL (32-36); MEAN CORPUSCULAR VOLUME 99 FL (80-99); MEAN PLATELET VOLUME 12.2 FL (7.4-10.4); MONOCYTES # (AUTO) 0.6 X 10^3 (0.0-1.0); MONOCYTES % (AUTO) 8 % (0-12); NEUTROPHILS % (AUTO) 58 % (42-75); PLATELET COUNT 177 10^3/uL (130-400); RED BLOOD COUNT 4.37 10^6/uL (4.35-5.85); RED CELL DISTRIBUTION WIDTH 18.2 % (10.0-14.5); WHITE BLOOD COUNT 6.9 10^3/uL (4.3-11.0)
== END 2017-02-09 | disposition home or self-care (01) ==
LOC: ONC 14:03
PROVIDERS: ATTEND Internal Medicine Hematology & Oncology
DX: N18.4 Chronic kidney disease, stage 4 (severe) (principal); D63.1 Anemia in chronic kidney disease; I13.0 Hypertensive heart and chronic kidney disease with heart failure and stage 1 through stage 4 chronic kidney disease, or unspecified chronic kidney disease; I50.9 Heart failure, unspecified; E03.9 Hypothyroidism, unspecified; D64.89 Other specified anemias; Z79.899 Other long term (current) drug therapy
CPT/HCPCS: 36415; 80053; 82728; 83540; 85025; 96365; 96372; 99213

== ENCOUNTER 2017-02-27 10:42 | Outpatient (RCR) | payer MEDICARE, MEDICAID ==
[2017-02-13 09:22] LABS: BASOPHILS % (AUTO) 0 % (0-10); EOSINOPHILS # (AUTO) 0.3 10^3/uL (0.0-0.3); EOSINOPHILS % (AUTO) 5 % (0-10); LYMPHOCYTES % (AUTO) 28 % (12-44); MEAN CORPUSCULAR HEMOGLOBIN 31 PG (25-34); MEAN CORPUSCULAR HGB CONC 31 G/DL (32-36); MEAN CORPUSCULAR VOLUME 97 FL (80-99); MEAN PLATELET VOLUME 12.2 FL (7.4-10.4); MONOCYTES # (AUTO) 0.7 X 10^3 (0.0-1.0); MONOCYTES % (AUTO) 9 % (0-12); NEUTROPHILS # (AUTO) 4.2 X 10^3 (1.8-7.8); NEUTROPHILS % (AUTO) 58 % (42-75); PLATELET COUNT 236 10^3/uL (130-400); RED BLOOD COUNT 4.42 10^6/uL (4.35-5.85); RED CELL DISTRIBUTION WIDTH 16.9 % (10.0-14.5); WHITE BLOOD COUNT 7.3 10^3/uL (4.3-11.0)
[~2017-02-27 10:42] MED LIST changes: -CYANOCOBALAMIN INJ 1000 MCG/ML (CANCER CENTER) ONE; -FERRIC CARBOXYMALTOSE (CANCER) 750 MG in NS (IVPB) CANCER CENTER 250 ML IV SCH
[2017-02-27 11:29] LABS: BASOPHILS % (AUTO) 0 % (0-10); EOSINOPHILS # (AUTO) 0.4 10^3/uL (0.0-0.3); EOSINOPHILS % (AUTO) 5 % (0-10); LYMPHOCYTES % (AUTO) 25 % (12-44); MEAN CORPUSCULAR HEMOGLOBIN 31 PG (25-34); MEAN CORPUSCULAR HGB CONC 31 G/DL (32-36); MEAN CORPUSCULAR VOLUME 101 FL (80-99); MEAN PLATELET VOLUME 11.8 FL (7.4-10.4); MONOCYTES # (AUTO) 0.6 X 10^3 (0.0-1.0); MONOCYTES % (AUTO) 8 % (0-12); NEUTROPHILS # (AUTO) 4.8 X 10^3 (1.8-7.8); NEUTROPHILS % (AUTO) 62 % (42-75); PLATELET COUNT 216 10^3/uL (130-400); RED BLOOD COUNT 4.08 10^6/uL (4.35-5.85); RED CELL DISTRIBUTION WIDTH 16.6 % (10.0-14.5); WHITE BLOOD COUNT 7.9 10^3/uL (4.3-11.0)
[2017-02-27 11:57] LABS: ALBUMIN 4.1 GM/DL (3.2-4.5); BILIRUBIN,TOTAL 0.4 MG/DL (0.1-1.0); CALCIUM 9.3 MG/DL (8.5-10.1); CREATININE SERUM 1.9 MG/DL (0.60-1.30); POTASSIUM 4.5 MMOL/L (3.6-5.0); TOTAL PROTEIN 6.8 GM/DL (6.4-8.2)
[2017-02-27 12:17] LABS: THYROID STIMULATING HORMONE 3.19 UIU/ML (0.35-4.94)
== END 2017-04-15 | disposition home or self-care (01) ==
LOC: ONC 10:42
PROVIDERS: ATTEND Internal Medicine Hematology & Oncology
DX: N18.4 Chronic kidney disease, stage 4 (severe) (principal); D63.1 Anemia in chronic kidney disease; I13.0 Hypertensive heart and chronic kidney disease with heart failure and stage 1 through stage 4 chronic kidney disease, or unspecified chronic kidney disease; I50.9 Heart failure, unspecified; E03.9 Hypothyroidism, unspecified; D64.89 Other specified anemias; Z79.899 Other long term (current) drug therapy
CPT/HCPCS: 36415; 80053; 82728; 83540; 84443; 85025; 99213

== ENCOUNTER 2017-05-01 09:01 | Outpatient (RCR) | payer MEDICARE, MEDICAID ==
[~2017-05-01 09:01] MED LIST changes: +METO-370 PO
[2017-05-01 09:17] LABS: BASOPHILS % (AUTO) 0 % (0-10); EOSINOPHILS # (AUTO) 0.3 10^3/uL (0.0-0.3); EOSINOPHILS % (AUTO) 4 % (0-10); HEMATOCRIT 41 % (35-52); HEMOGLOBIN 12.9 G/DL (11.5-16.0); LYMPHOCYTES # (AUTO) 2.3 X 10^3 (1.0-4.0); LYMPHOCYTES % (AUTO) 29 % (12-44); MEAN CORPUSCULAR HEMOGLOBIN 32 PG (25-34); MEAN CORPUSCULAR HGB CONC 31 G/DL (32-36); MEAN CORPUSCULAR VOLUME 103 FL (80-99); MEAN PLATELET VOLUME 12.3 FL (7.4-10.4); MONOCYTES # (AUTO) 0.7 X 10^3 (0.0-1.0); MONOCYTES % (AUTO) 8 % (0-12); NEUTROPHILS # (AUTO) 4.8 X 10^3 (1.8-7.8); NEUTROPHILS % (AUTO) 59 % (42-75); PLATELET COUNT 221 10^3/uL (130-400); RED BLOOD COUNT 3.99 10^6/uL (4.35-5.85); RED CELL DISTRIBUTION WIDTH 13.1 % (10.0-14.5)
[2017-05-01 09:39] LABS: ALBUMIN 3.9 GM/DL (3.2-4.5); BILIRUBIN,TOTAL 0.5 MG/DL (0.1-1.0); CREATININE SERUM 1.41 MG/DL (0.60-1.30); POTASSIUM 4.1 MMOL/L (3.6-5.0); TOTAL PROTEIN 6.8 GM/DL (6.4-8.2)
== END 2017-07-30 | disposition home or self-care (01) ==
LOC: ONC 09:01
PROVIDERS: ATTEND Internal Medicine Hematology & Oncology
DX: N18.4 Chronic kidney disease, stage 4 (severe) (principal); D63.1 Anemia in chronic kidney disease; I13.0 Hypertensive heart and chronic kidney disease with heart failure and stage 1 through stage 4 chronic kidney disease, or unspecified chronic kidney disease; I50.9 Heart failure, unspecified; E03.9 Hypothyroidism, unspecified; D64.89 Other specified anemias; Z79.899 Other long term (current) drug therapy
CPT/HCPCS: 36415; 80053; 82728; 83540; 84443; 85025; 99213

== ENCOUNTER 2017-08-02 15:59 | Inpatient (IN) | payer MEDICARE, MEDICAID ==
[2017-08-02] VITALS (7 sets, daily range): BP systolic 105–128; BP diastolic 58–95
[~2017-08-02] VITALS: Ht 152.4 cm; Wt 57.7 kg
[~2017-08-02 15:59] MED LIST changes: -DARBEPOETIN 40 MCG/ML (ARANESP) 1 ML VIAL SC SCH
[2017-08-02] MEDS ORDERED: fentaNYL INJECTION 100 MCG/2 ML AMP IVP PRN (17:15)
[2017-08-02] MEDS ORDERED: ALPRAZolam 0.25 MG (XANAX) TAB PO PRN (17:15)
[2017-08-02] MEDS ORDERED: POLYETHYLENE GLYCOL 17 GM (MIRALAX) PACK PO PRN (17:15)
[2017-08-02] MEDS ORDERED: MAGNESIUM 1 GM/100 ML IVPB 100 ML IV SCH (17:15)
[2017-08-02] MEDS ORDERED: HYDROcodone/APAP 5 MG/325 MG (LORTAB) TAB PO PRN (17:15)
[2017-08-02] MEDS ORDERED: ONDANSETRON 4 MG/2 ML (SDV) Z0FRAN IVP PRN (17:15)
[2017-08-02] MEDS ORDERED: ACETAMINOPHEN 500 MG TAB (TYLENOL) PO PRN (17:15)
--- OUTSIDE RECORDS SUMMARY | 2017-08-02 17:28 | XMS REPORT ---
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
--- OUTSIDE RECORDS SUMMARY | 2017-08-02 17:28 | XMS REPORT ---
Author Author DEANNA BROWN [facility] e[employer] Address Unknown Phone Unavailable Care Team Providers Care Manager Export Name Role Phone DEANNA BROWN CP Unavailable Allergies, Adverse Reactions, Alerts Substance Reaction Event Type N.K.D.A. 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 Active Assessment Renal insufficiency 593.9 Active Assessment Hypomagnesemia 275.2 Active Assessment 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 Active Assessment Epilepsy 345.90 Active Medications Medication Code System Code Instructions Start Date End Date Status Dosage Calcium [facility] [address] 600 MG Orally 2 times a day 1 tablet with meals Metoprolol Succinate ER [facility] [address]-57 50 MG Orally 2 times a day 1 tablet Vitamin D (Cholecalciferol) [facility] [address]-76 1000 UNIT Orally Once a day 1 tablet Levothyroxine Sodium [facility] [address]-46 200 MCG Orally Once a day 1 tablet Dilantin [facility] [address]-46 30 MG Orally Twice a day 1 capsule Aspir-81 [facility] [address]-33 81 MG Orally Once a day 1 tablet Vitamin B-12 CR [facility] [address]-49 1000 MCG Orally Once a day 1 tablet Simvastatin [facility] [address]-91 20 MG Orally Once a day 1 tablet in the evening Magnesium Oxide [facility] [address]-33 500 MG Orally Once a day 1 tablet Klor-Con M20 [facility] [address]-97 20 MEQ Orally Twice a day 1 tablet Plavix [facility] [address]-58 75 MG Orally Once a day 1 tablet Procedures Procedure Coding System Code Date Office Visit, Est Pt., Level 4 CPT-4 49792 Mar 18, 2015 VENIPUNCT, ROUTINE* CPT-4 69424 Mar 18, 2015 [facility] VISIT ESTABLISHED PATIENT CPT-4 G0467 Mar 18, 2015 Vital Signs Date/Time: Mar 18, 2015 Temperature 97.2 F Weight 122.8 lbs Height 60 in BMI 23.98 Index Blood Pressure Diastolic 70 mmHg Blood Pressure Systolic 138 mmHg Cardiac Monitoring Heart Rate 78 bpm Results Name Result Date Reference Range Unit Abnormality Flag ROUTINE VENIPUNCTURE MAGNESIUM, SERUM Summary Purpose eClinicalWorks Submission
--- OUTSIDE RECORDS SUMMARY | 2017-08-02 17:28 | XMS REPORT ---
Author DEANNA Russell [facility] eClinicalWorks Address Unknown Phone Unavailable Care Team Providers Care Electronic Warfare Officer Name Role Phone DEANNA BROWN Unavailable Allergies, Adverse Reactions, Alerts Substance Reaction Event Type N.K.D.A. Info Not Available Non Drug Allergy Problems Problem Type Condition Code Onset Dates Condition Status Assessment Cardiac pacemaker Z95.0 Active Problem Alteration in mobility due to weakness R53.1 Active Assessment Essential hypertension I10 Active Problem Cardiac pacemaker Z95.0 Active Problem Acquired hypothyroidism E03.9 Active Problem Essential hypertension I10 Active Problem Chronic kidney disease (CKD) stage G3a/A1, moderately decreased glomerular filtration rate (GFR) between 45-59 mL/min/1.73 square meter and albuminuria creatinine ratio less than 30 mg/g N18.3 Active Problem Mixed hyperlipidemia E78.2 Active Problem Asthma J45.909 Active Problem Other generalized epilepsy, not intractable, 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 Assessment Chronic kidney disease (CKD) stage G3a/A1, moderately decreased glomerular filtration rate (GFR) between 45-59 mL/min/1.73 square meter and albuminuria creatinine ratio less than 30 mg/g N18.3 Active Assessment Other generalized epilepsy, not intractable, 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 Assessment Alteration in mobility due to weakness R53.1 Active Assessment Asthma J45.909 Active Assessment Mixed hyperlipidemia E78.2 Active Assessment Acquired hypothyroidism E03.9 Active Medications Medication Code System Code Instructions Start Date End Date Status Dosage Vitamin B-12 CR [facility] [address]-98 1000 MCG Orally Once a day 1 tablet Plavix [facility] 15709101718 75 Orally Once a day 1 tablet Vitamin D (Cholecalciferol) [facility] [address]-18 1000 UNIT Orally Once a day 1 tablet Magnesium Oxide [facility] [address]-86 500 MG Orally Once a day 1 tablet Levothyroxine Sodium [facility] [address]-93 200 MCG Orally Once a day 1 tablet Aspir-81 [facility] [address]-33 81 MG Orally Once a day 1 tablet Simvastatin [facility] [address]-51 20 MG Orally Once a day 1 tablet in the evening Dilantin [facility] [address]-97 30 MG Orally Twice a day 1 capsule Metoprolol Succinate ER [facility] [address]-15 50 MG Orally 2 times a day 1 tablet Quad Cane [facility] 8225-497864 Jun 10, 2015 as directed Toprol XL [facility] 45115616750 50 Orally 2 times a day 1 tablet Klor-Con M20 [facility] 07227612567 20 Orally Twice a day 1 tablet Calcium [facility] [address]56 600 MG Orally 2 times a day 1 tablet with meals Procedures Procedure Coding System Code Date VENIPUNCT, ROUTINE* CPT-4 44301 Jun 10, 2015 [facility] VISIT ESTABLISHED PATIENT CPT-4 G0467 Jun 10, 2015 [facility] NOBLL Jun 10, 2015 Office Visit, Est Pt., Level 4 CPT-4 99749 Jun 10, 2015 Vital Signs Date/Time: Jun 10, 2015 Temperature 97.4 F Weight 125.6 lbs Height 60 in BMI 24.53 Index Blood Pressure Diastolic 70 mmHg Blood Pressure Systolic 162 mmHg Cardiac Monitoring Heart Rate 101 bpm Results Name Result Date Reference Range Unit Abnormality Flag ROUTINE VENIPUNCTURE Summary Purpose eClinicalWorks Submission
--- OUTSIDE RECORDS SUMMARY | 2017-08-02 17:29 | XMS REPORT ---
Author DEANNA Russell Organization [employer] Address Unknown Phone Unavailable Care Team Providers Care Blockman Name Role Phone DEANNA BROWN CP Unavailable Allergies No Known Allergies Problems Problem Type Condition Code Onset Dates Condition Status Problem Alteration in mobility due to weakness R53.1 Active Assessment Chronic kidney disease (CKD) stage G4/A1, severely decreased glomerular filtration rate (GFR) between 15-29 mL/min/1.73 square meter and albuminuria creatinine ratio less than 30 mg/g N18.4 Active Problem Cardiac pacemaker Z95.0 Active Problem [...] not intractable, 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 Medications No Known Medications Results No Known Results Summary Purpose eClinicalWorks Submission
--- OUTSIDE RECORDS SUMMARY | 2017-08-02 17:29 | XMS REPORT ---
Author Author DEANNA BROWN Organization [employer] Address Unknown Phone Unavailable Care Team Providers Care Utility Tech Name Role Phone DEANNA BROWN CP Unavailable Allergies No Known Allergies Problems Problem Type Condition Code Onset Dates Condition Status Problem Alteration in mobility due to weakness R53.1 Active Problem Cardiac pacemaker Z95.0 Active Problem [...]
--- OUTSIDE RECORDS SUMMARY | 2017-08-02 17:29 | XMS REPORT ---
Author DONNA Muniz [facility] eClinicalWorks Address Unknown Phone Unavailable Care Team Providers Care Director Of Catering Sales Name Role Phone DONNA EMERY CP Unavailable Allergies No Known Allergies Problems Problem Type Condition Code Onset Dates Condition Status Assessment Encounter for immunization Z23 Active Problem Asthma, unspecified, unspecified status 493.90 Active Problem 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 Active Problem Hypertension 997.91 Active Problem Other and unspecified hyperlipidemia 272.4 Active Problem Essential hypertension, benign 401.1 Active Problem Unspecified hypothyroidism 244.9 Active Problem Unspecified epilepsy without mention of intractable epilepsy 345.90 Active Medications No Known Medications Procedures Procedure Coding System Code Date SINGLE IMMUNIZATION ADMIN CPT-4 48170 Apr 24, 2015 FLUZONE TRIV HIGH DOSE (65 & UP)-SANOFI PASTEUR-2014 CPT-4 74643 Apr 24, 2015 Results No Known Results Immunizations Vaccine Administration Date FLUZONE TRIV HIGH DOSE (65 & UP)-SANOFI PASTEUR-2014Apr 24, 2015 Summary Purpose eClinicalWorks Submission
[2017-08-02] MEDS ORDERED: CATHETER FLUSH 10 ML SYR IV PRN (17:30)
--- OUTSIDE RECORDS SUMMARY | 2017-08-02 17:30 | XMS REPORT | Continuity of Care Document ---
Author Author [facility] Organization [facility] Address Unknown Phone Unavailable Allergies Active Description Code Type Severity Reaction Onset Reported/Identified Relationship to Patient Clinical Status Yes aspirin [id number] Drug Allergy Unknown N/A 07/21/2007 Yes No Allergy Information Available [id number] Drug Allergy Unknown N/A 2015 Medications There is no data. Problems Date Dx Coded Attending Type Code Diagnosis Diagnosed By 02/24/2014 KENTON GILBERT DO Ot 298.9 02/24/2014 KENTON GILBERT DO Ot 412 02/24/2014 KENTON GILBERT DO Ot 729.89 02/24/2014 KENTON GILBERT DO Ot V12.54 02/26/2014 GUILLERMO LAU MD Ot 272.0 02/26/2014 GUILLERMO LAU MD Ot 300.00 02/26/2014 SID HUERTAS, GUILLERMO Franklin Ot 345.10 02/26/2014 SID HUERTAS, GUILLERMO [place] Ot 401.9 02/26/2014 SID HUERTAS, GUILLERMO [place] Ot 780.79 02/26/2014 SID HUERTAS, GUILLERMO [place] Ot 784.59 02/26/2014 SID HUERTAS, GUILLERMO Franklin Ot V12.54 02/26/2014 GUILLERMO LAU MD Ot V45.86 07/29/2014 MADL COMPUTER ENGINEER, DEANNA L 244.9 HYPOTHYROIDISM 07/29/2014 MADL COMPUTER ENGINEER, DEANNA L 272.4 OTHER AND UNSPECIFIED HYPERLIPIDEMIA 07/29/2014 MADL COMPUTER ENGINEER, DEANNA L 345.90 EPILEPSY UNSPECIFIED WITHOUT INTRACTABLE EPILEPSY 07/29/2014 MADL COMPUTER ENGINEER, DEANNA L 401.1 HYPERTENSION, BENIGN ESSENTIAL 07/29/2014 MADL COMPUTER ENGINEER, DEANNA L 493.90 ASTHMA UNSPECIFIED 07/29/2014 MADL COMPUTER ENGINEER, DEANNA L V45.01 CARDIAC PACEMAKER IN SITU 07/29/2014 EMERY DO, DONNA K 244.9 HYPOTHYROIDISM 07/29/2014 EMERY DO, DONNA K 272.4 OTHER AND UNSPECIFIED HYPERLIPIDEMIA 07/29/2014 EMERY DO, DONNA K 345.90 EPILEPSY UNSPECIFIED WITHOUT INTRACTABLE EPILEPSY 07/29/2014 EMERY DO, DONNA K 401.1 HYPERTENSION, BENIGN ESSENTIAL 07/29/2014 EMERY DO, DONNA K 493.90 ASTHMA UNSPECIFIED 07/29/2014 EMERY DO, DONNA K V45.01 CARDIAC PACEMAKER IN SITU 07/29/2014 MADL COMPUTER ENGINEER, DEANNA L 244.9 HYPOTHYROIDISM 07/29/2014 MADL COMPUTER ENGINEER, DEANNA L 272.4 OTHER AND UNSPECIFIED HYPERLIPIDEMIA 07/29/2014 MADL COMPUTER ENGINEER, DEANNA L 345.90 EPILEPSY UNSPECIFIED WITHOUT INTRACTABLE EPILEPSY 07/29/2014 MADL COMPUTER ENGINEER, DEANNA L 401.1 HYPERTENSION, BENIGN ESSENTIAL 07/29/2014 MADL COMPUTER ENGINEER, DEANNA L 493.90 ASTHMA UNSPECIFIED 07/29/2014 MADL COMPUTER ENGINEER, DEANNA L V45.01 CARDIAC PACEMAKER IN SITU 07/29/2014 MADL COMPUTER ENGINEER, DEANNA L 244.9 HYPOTHYROIDISM 07/29/2014 MADL COMPUTER ENGINEER, DEANNA L 272.4 OTHER AND UNSPECIFIED HYPERLIPIDEMIA 07/29/2014 MADL COMPUTER ENGINEER, DEANNA L 345.90 EPILEPSY UNSPECIFIED WITHOUT INTRACTABLE EPILEPSY 07/29/2014 MADL COMPUTER ENGINEER, DEANNA L 401.1 HYPERTENSION, BENIGN ESSENTIAL 07/29/2014 MADL COMPUTER ENGINEER, DEANNA L 493.90 ASTHMA UNSPECIFIED 07/29/2014 MADL COMPUTER ENGINEER, DEANNA L V45.01 CARDIAC PACEMAKER IN SITU 10/10/2014 GUILLERMO LAU MD Ot 345.90 10/10/2014 GUILLERMO LAU MD Ot V58.69 10/22/2014 MADL COMPUTER ENGINEER, DEANNA L 593.9 UNSPECIFIED DISORDER OF KIDNEY AND URETER 07/14/2016 TRAN DO, JOHNY Ot D64.9 ANEMIA, UNSPECIFIED 07/14/2016 TRAN DO, JOHNY Ot E78.5 HYPERLIPIDEMIA, UNSPECIFIED 07/14/2016 TRAN DO, JOHNY Ot F41.9 ANXIETY DISORDER, UNSPECIFIED 07/14/2016 TRAN DO, JOHNY Ot G40.909 EPILEPSY, UNSP, NOT INTRACTABLE, WITHOUT 07/14/2016 TRAN DO, JOHNY Ot 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 07/14/2016 TRAN DO, JOHNY Ot I25.2 OLD MYOCARDIAL INFARCTION 07/14/2016 TRAN DO, JOHNY Ot I50.9 HEART FAILURE, UNSPECIFIED 07/14/2016 TRAN DO, JOHNY Ot N18.9 CHRONIC KIDNEY DISEASE, UNSPECIFIED 07/14/2016 TRAN DO, JOHNY Ot R53.81 OTHER MALAISE 07/14/2016 TRAN DO, JOHNY Ot Z86.73 PRSNL HX OF TIA (TIA), AND CEREB INFRC W 07/14/2016 TRAN DO, JOHNY Ot Z95.810 PRESENCE OF AUTOMATIC (IMPLANTABLE) CARD 07/14/2016 TRAN DO, JOHNY Ot Z98.84 BARIATRIC SURGERY STATUS 07/15/2016 TRAN DO, JOHNY Ot D64.9 ANEMIA, UNSPECIFIED 07/15/2016 TRAN DO, JOHNY Ot E78.5 HYPERLIPIDEMIA, UNSPECIFIED 07/15/2016 TRAN DO, JOHNY Ot F41.9 ANXIETY DISORDER, UNSPECIFIED 07/15/2016 TRAN DO, JOHNY Ot G40.909 EPILEPSY, UNSP, NOT INTRACTABLE, WITHOUT 07/15/2016 TRAN DO, JOHNY Ot 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 07/15/2016 TRAN DO, JOHNY Ot I25.2 OLD MYOCARDIAL INFARCTION 07/15/2016 TRAN DO, JOHNY Ot I50.9 HEART FAILURE, UNSPECIFIED 07/15/2016 TRAN DO, JOHNY Ot N18.9 CHRONIC KIDNEY DISEASE, UNSPECIFIED 07/15/2016 TRAN DO, JOHNY Ot R53.81 OTHER MALAISE 07/15/2016 TRAN DO, JOHNY Ot Z86.73 PRSNL HX OF TIA (TIA), AND CEREB INFRC W 07/15/2016 TRAN DO, JOHNY Ot Z95.810 PRESENCE OF AUTOMATIC (IMPLANTABLE) CARD 07/15/2016 TRAN DO, JOHNY Ot Z98.84 BARIATRIC SURGERY STATUS 07/15/2016 TRAN DO, JOHNY Ot D64.9 ANEMIA, UNSPECIFIED 07/15/2016 TRAN DO, JOHNY Ot E78.5 HYPERLIPIDEMIA, UNSPECIFIED 07/15/2016 TRAN DO, JOHNY Ot F41.9 ANXIETY DISORDER, UNSPECIFIED 07/15/2016 TRAN DO, JOHNY Ot G40.909 EPILEPSY, UNSP, NOT INTRACTABLE, WITHOUT 07/15/2016 TRAN DO, JOHNY Ot 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 07/15/2016 TRAN DO JOHNY Ot I25.2 OLD MYOCARDIAL INFARCTION 07/15/2016 TRAN DO JOHNY Ot I27.2 OTHER SECONDARY PULMONARY HYPERTENSION 07/15/2016 TRAN DO JOHNY Ot 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 07/15/2016 TRAN DO, JOHNY Ot N17.9 ACUTE KIDNEY FAILURE, UNSPECIFIED 07/15/2016 TRAN DO, JOHNY Ot N18.9 CHRONIC KIDNEY DISEASE, UNSPECIFIED 07/15/2016 TRAN DO JOHNY Ot R53.81 OTHER MALAISE 07/15/2016 TRAN DO JOHNY Ot Z86.73 PRSNL HX OF TIA (TIA), AND CEREB INFRC W 07/15/2016 CHELSEA ÁLVAREZ JOHNY Ot Z95.810 PRESENCE OF AUTOMATIC (IMPLANTABLE) CARD 07/15/2016 CHELSEA ÁLVAREZ JOHNY Ot Z98.84 BARIATRIC SURGERY STATUS 07/19/2016 SAM HUERTAS, RODRIGO Franklin Ot D64.9 ANEMIA, UNSPECIFIED 07/19/2016 RODRIGO VARGAS MD Ot I50.9 HEART FAILURE, UNSPECIFIED 07/19/2016 SAM HUERTAS, RODRIGO Franklin Ot D64.9 ANEMIA, UNSPECIFIED 07/19/2016 RODRIGO VARGAS MD Ot I50.9 HEART FAILURE, UNSPECIFIED 07/19/2016 CHELSEA ÁLVAREZ JOHNY Ot D63.1 ANEMIA IN CHRONIC KIDNEY DISEASE 07/19/2016 CHELSEA ÁLVAREZ JOHNY Ot F41.9 ANXIETY DISORDER, UNSPECIFIED 07/19/2016 TRAN DO JOHNY Ot G40.909 EPILEPSY, UNSP, NOT INTRACTABLE, WITHOUT 07/19/2016 TRAN DO JOHNY Ot 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 07/19/2016 TRAN DO JOHNY Ot I25.10 ATHSCL HEART DISEASE OF [place] CORONARY 07/19/2016 TRAN DO JOHNY Ot I50.30 UNSPECIFIED DIASTOLIC (CONGESTIVE) HEART 07/19/2016 JOHNY TRAN DO Ot N18.9 CHRONIC KIDNEY DISEASE, UNSPECIFIED 07/19/2016 JOHNY TRAN DO Ot N39.0 URINARY TRACT INFECTION, SITE NOT SPECIF 07/19/2016 JOHNY TRAN DO Ot R53.1 WEAKNESS 07/19/2016 JOHNY TRAN DO Ot Z95.0 PRESENCE OF CARDIAC PACEMAKER 07/19/2016 FARIHA TRAN DOI Ot Z98.84 BARIATRIC SURGERY STATUS 07/21/2016 JOHNY TRAN DO Ot 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 07/21/2016 FARIHA TRAN DOI Ot I50.9 HEART FAILURE, UNSPECIFIED 07/21/2016 JOHNY TRAN DO Ot N18.9 CHRONIC KIDNEY DISEASE, UNSPECIFIED 08/10/2016 RODRIGO VARGAS MD Ot D64.9 ANEMIA, UNSPECIFIED 08/10/2016 RODRIGO VARGAS MD Ot I50.9 HEART FAILURE, UNSPECIFIED 08/10/2016 JHONY TRAN DO Ot 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 08/10/2016 FARIHA TRAN DOI Ot I50.9 HEART FAILURE, UNSPECIFIED 08/10/2016 JOHNY TRAN DO Ot N18.9 CHRONIC KIDNEY DISEASE, UNSPECIFIED 08/17/2016 MIKAEL FLORENCE DO Ot D64.9 ANEMIA, UNSPECIFIED 09/08/2016 JERRY RUBALCAVA MD, Ot D63.1 ANEMIA IN CHRONIC KIDNEY DISEASE 09/08/2016 JERRY RUBALCAVA MD Ot D64.89 OTHER SPECIFIED ANEMIAS 09/08/2016 JERRY RUBALCAVA MD, Ot E03.9 HYPOTHYROIDISM, UNSPECIFIED 09/08/2016 JERRY RUBALCAVA MD Ot 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 09/08/2016 JERRY RUBALCAVA MD Ot I50.9 HEART FAILURE, UNSPECIFIED 09/08/2016 JERRY RUBALCAVA MD, Ot N18.4 CHRONIC KIDNEY DISEASE, STAGE 4 (SEVERE) 09/08/2016 JERRY RUBALCAVA MD, Ot Z79.899 OTHER [facility] (CURRENT) DRUG THERAPY 09/28/2016 JERRY RUBALCAVA MD, Ot D63.1 ANEMIA IN CHRONIC KIDNEY DISEASE 09/28/2016 JERRY RUBALCAVA MD, Ot D64.89 OTHER SPECIFIED ANEMIAS 09/28/2016 JERRY RUBALCAVA MD Ot E03.9 HYPOTHYROIDISM, UNSPECIFIED 09/28/2016 JERRY RUBALCAVA MD Ot 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 09/28/2016 JERRY RUBALCAVA MD, Ot I50.9 HEART FAILURE, UNSPECIFIED 09/28/2016 JERRY RUBALCAVA MD, Ot N18.4 CHRONIC KIDNEY DISEASE, STAGE 4 (SEVERE) 09/28/2016 JERRY RUBALCAVA MD, Ot Z79.899 OTHER SEASONAL RECRUITER (CURRENT) DRUG THERAPY 10/15/2016 RODRIGO VARGAS MD Ot D64.9 ANEMIA, UNSPECIFIED 10/15/2016 RODRIGO VARGAS MD Ot I50.9 HEART FAILURE, UNSPECIFIED 11/07/2016 JERRY RUBALCAVA MD, Ot D63.1 ANEMIA IN CHRONIC KIDNEY DISEASE 11/07/2016 JERRY RUBALCAVA MD, Ot D64.89 OTHER SPECIFIED ANEMIAS 11/07/2016 JERRY RUBALCAVA MD, Ot E03.9 HYPOTHYROIDISM, UNSPECIFIED 11/07/2016 JERRY RUBALCAVA MD Ot 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 11/07/2016 JERRY RUBALCAVA MD, Ot I50.9 HEART FAILURE, UNSPECIFIED 11/07/2016 JERRY RUBALCAVA MD, Ot N18.4 CHRONIC KIDNEY DISEASE, STAGE 4 (SEVERE) 11/07/2016 JERRY RUBALCAVA MD, Ot Z79.899 OTHER SEASONAL RECRUITER (CURRENT) DRUG THERAPY 11/08/2016 JERRY RUBALCAVA MD, Ot D63.1 ANEMIA IN CHRONIC KIDNEY DISEASE 11/08/2016 JERRY RUBALCAVA MD Ot D64.89 OTHER SPECIFIED ANEMIAS 11/08/2016 JERRY RUBALCAVA MD, Ot E03.9 HYPOTHYROIDISM, UNSPECIFIED 11/08/2016 JERRY RUBALCAVA MD Ot 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 11/08/2016 JERRY RUBALCAVA MD, Ot I50.9 HEART FAILURE, UNSPECIFIED 11/08/2016 JERRY RUBALCAVA MD, Ot N18.4 CHRONIC KIDNEY DISEASE, STAGE 4 (SEVERE) 11/08/2016 JERRY RUBALCAVA MD, Ot Z79.899 OTHER SEASONAL RECRUITER (CURRENT) DRUG THERAPY 2016 JERRY RUBALCAVA MD Ot D63.1 ANEMIA IN CHRONIC KIDNEY DISEASE 2016 JERRY RUBALCAVA MD Ot D64.89 OTHER SPECIFIED ANEMIAS 2016 JERRY RUBALCAVA MD, Ot E03.9 HYPOTHYROIDISM, UNSPECIFIED 2016 JERRY RUBALCAVA MD Ot 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 2016 JERRY RUBALCAVA MD Ot I50.9 HEART FAILURE, UNSPECIFIED 2016 JERRY RUBALCAVA MD, Ot N18.4 CHRONIC KIDNEY DISEASE, STAGE 4 (SEVERE) 2016 JERRY RUBALCAVA MD, Ot Z79.899 OTHER [facility] (CURRENT) DRUG THERAPY 12/09/2016 JERRY RUBALCAVA MD, Ot D63.1 ANEMIA IN CHRONIC KIDNEY DISEASE 12/09/2016 JERRY RUBALCAVA MD, Ot D64.89 OTHER SPECIFIED ANEMIAS 12/09/2016 JERRY RUBALCAVA MD, Ot E03.9 HYPOTHYROIDISM, UNSPECIFIED 12/09/2016 JERRY RUBALCAVA MD, Ot 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 12/09/2016 JERRY RUBALCAVA MD, Ot I50.9 HEART FAILURE, UNSPECIFIED 12/09/2016 JERRY RUBALCAVA MD, Ot N18.4 CHRONIC KIDNEY DISEASE, STAGE 4 (SEVERE) 12/09/2016 JERRY RUBALCAVA MD, Ot Z79.899 OTHER SEASONAL RECRUITER (CURRENT) DRUG THERAPY 01/06/2017 JERRY RUBALCAVA MD, Ot D63.1 ANEMIA IN CHRONIC KIDNEY DISEASE 01/06/2017 JERRY RUBALCAVA MD Ot D64.89 OTHER SPECIFIED ANEMIAS 01/06/2017 JERRY RUBALCAVA MD, Ot E03.9 HYPOTHYROIDISM, UNSPECIFIED 01/06/2017 JERRY RUBALCAVA MD Ot 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 01/06/2017 JERRY RUBALCAVA MD, Ot I50.9 HEART FAILURE, UNSPECIFIED 01/06/2017 JERRY RUBALCAVA MD, Ot N18.4 CHRONIC KIDNEY DISEASE, STAGE 4 (SEVERE) 01/06/2017 JERRY RUBALCAVA MD, Ot Z79.899 OTHER [facility] (CURRENT) DRUG THERAPY 02/09/2017 JERRY RUBALCAVA MD Ot D63.1 ANEMIA IN CHRONIC KIDNEY DISEASE 02/09/2017 JERRY RUBALCAVA MD Ot D64.89 OTHER SPECIFIED ANEMIAS 02/09/2017 JERRY RUBALCAVA MD Ot E03.9 HYPOTHYROIDISM, UNSPECIFIED 02/09/2017 JERRY RUBALCAVA MD Ot 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 02/09/2017 JERRY RUBALCAVA MD, Ot I50.9 HEART FAILURE, UNSPECIFIED 02/09/2017 JERRY RUBALCAVA MD, Ot N18.4 CHRONIC KIDNEY DISEASE, STAGE 4 (SEVERE) 02/09/2017 JERRY RUBALCAVA MD, Ot Z79.899 OTHER SEASONAL RECRUITER (CURRENT) DRUG THERAPY 02/14/2017 JERRY RUBALCAVA MD, Ot D63.1 ANEMIA IN CHRONIC KIDNEY DISEASE 02/14/2017 JERRY RUBALCAVA MD Ot D64.89 OTHER SPECIFIED ANEMIAS 02/14/2017 JERRY RUBALCAVA MD, Ot E03.9 HYPOTHYROIDISM, UNSPECIFIED 02/14/2017 JERRY RUBALCAVA MD Ot 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 02/14/2017 JERRY RUBALCAVA MD, Ot I50.9 HEART FAILURE, UNSPECIFIED 02/14/2017 JERRY RUBALCAVA MD, Ot N18.4 CHRONIC KIDNEY DISEASE, STAGE 4 (SEVERE) 02/14/2017 JERRY RUBALCAVA MD, Ot Z79.899 OTHER [facility] (CURRENT) DRUG THERAPY 02/14/2017 JERRY RUBALCAVA MD, Ot D63.1 ANEMIA IN CHRONIC KIDNEY DISEASE 02/14/2017 JERRY RUBALCAVA MD Ot D64.89 OTHER SPECIFIED ANEMIAS 02/14/2017 JERRY RUBALCAVA MD, Ot E03.9 HYPOTHYROIDISM, UNSPECIFIED 02/14/2017 JERRY RUBALCAVA MD Ot 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 02/14/2017 JERRY RUBALCAVA MD Ot I50.9 HEART FAILURE, UNSPECIFIED 02/14/2017 JERRY RUBALCAVA MD, Ot N18.4 CHRONIC KIDNEY DISEASE, STAGE 4 (SEVERE) 02/14/2017 JERRY RUBALCAVA MD, Ot Z79.899 OTHER SEASONAL RECRUITER (CURRENT) DRUG THERAPY 03/14/2017 JERRY RUBALCAVA MD Ot D63.1 ANEMIA IN CHRONIC KIDNEY DISEASE 03/14/2017 JERRY RUBALCAVA MD Ot D64.89 OTHER SPECIFIED ANEMIAS 03/14/2017 JERRY RUBALCAVA MD Ot E03.9 HYPOTHYROIDISM, UNSPECIFIED 03/14/2017 JERRY RUBALCAVA MD Ot 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 03/14/2017 JERRY RUBALCAVA MD Ot I50.9 HEART FAILURE, UNSPECIFIED 03/14/2017 JERRY RUBALCAVA MD, Ot N18.4 CHRONIC KIDNEY DISEASE, STAGE 4 (SEVERE) 03/14/2017 JERRY RUBALCAVA MD, Ot Z79.899 OTHER [facility] (CURRENT) DRUG THERAPY 04/15/2017 JERRY RUBALCAVA MD, Ot D63.1 ANEMIA IN CHRONIC KIDNEY DISEASE 04/15/2017 JERRY RUBALCAVA MD Ot D64.89 OTHER SPECIFIED ANEMIAS 04/15/2017 JERRY RUBALCAVA MD, Ot E03.9 HYPOTHYROIDISM, UNSPECIFIED 04/15/2017 JERRY RUBALCAVA MD Ot 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 04/15/2017 JERRY RUBALCAVA MD, Ot I50.9 HEART FAILURE, UNSPECIFIED 04/15/2017 JERRY RUBALCAVA MD, Ot N18.4 CHRONIC KIDNEY DISEASE, STAGE 4 (SEVERE) 04/15/2017 JERRY RUBALCAVA MD, Ot Z79.899 OTHER [facility] (CURRENT) DRUG THERAPY 05/02/2017 JERRY RUBALCAVA MD, Ot D63.1 ANEMIA IN CHRONIC KIDNEY DISEASE 05/02/2017 JERRY RUBALCAVA MD Ot D64.89 OTHER SPECIFIED ANEMIAS 05/02/2017 JERRY RUBALCAVA MD, Ot E03.9 HYPOTHYROIDISM, UNSPECIFIED 05/02/2017 JERRY RUBALCAVA MD, Ot 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 05/02/2017 JERRY RUBALCAVA MD Ot I50.9 HEART FAILURE, UNSPECIFIED 05/02/2017 JERRY RUBALCAVA MD, Ot N18.4 CHRONIC KIDNEY DISEASE, STAGE 4 (SEVERE) 05/02/2017 JERRY RUBALCAVA MD, Ot Z79.899 OTHER SEASONAL RECRUITER (CURRENT) DRUG THERAPY 06/09/2017 JERRY RUBALCAVA MD, Ot D63.1 ANEMIA IN CHRONIC KIDNEY DISEASE 06/09/2017 JERRY RUBALCAVA MD Ot D64.89 OTHER SPECIFIED ANEMIAS 06/09/2017 JERRY RUBALCAVA MD, Ot E03.9 HYPOTHYROIDISM, UNSPECIFIED 06/09/2017 JERRY RUBALCAVA MD, Ot 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 06/09/2017 JERRY RUBALCAVA MD, Ot I50.9 HEART FAILURE, UNSPECIFIED 06/09/2017 JERRY RUBALCAVA MD, Ot N18.4 CHRONIC KIDNEY DISEASE, STAGE 4 (SEVERE) 06/09/2017 JERRY RUBALCAVA MD, Ot Z79.899 OTHER [facility] (CURRENT) DRUG THERAPY 06/22/2017 JERRY RUBALCAVA MD, Ot D63.1 ANEMIA IN CHRONIC KIDNEY DISEASE 06/22/2017 JERRY RUBALCAVA MD, Ot D64.89 OTHER SPECIFIED ANEMIAS 06/22/2017 JERRY RUBALCAVA MD, Ot E03.9 HYPOTHYROIDISM, UNSPECIFIED 06/22/2017 JERRY RUBALCAVA MD, Ot 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 06/22/2017 JERRY RUBALCAVA MD, Ot I50.9 HEART FAILURE, UNSPECIFIED 06/22/2017 JERRY RUBALCAVA MD, Ot N18.4 CHRONIC KIDNEY DISEASE, STAGE 4 (SEVERE) 06/22/2017 JERRY RUBALCAVA MD, Ot Z79.899 OTHER SEASONAL RECRUITER (CURRENT) DRUG THERAPY 07/30/2017 JERRY RUBALCAVA MD, Ot D63.1 ANEMIA IN CHRONIC KIDNEY DISEASE 07/30/2017 JERRY RUBALCAVA MD Ot D64.89 OTHER SPECIFIED ANEMIAS 07/30/2017 JERRY RUBALCAVA MD, Ot E03.9 HYPOTHYROIDISM, UNSPECIFIED 07/30/2017 JERRY RUBALCAVA MD, Ot 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 07/30/2017 JERRY RUBALCAVA MD, Ot I50.9 HEART FAILURE, UNSPECIFIED 07/30/2017 JERRY RUBALCAVA MD, Ot N18.4 CHRONIC KIDNEY DISEASE, STAGE 4 (SEVERE) 07/30/2017 JERRY RUBALCAVA MD, Ot Z79.899 OTHER [facility] (CURRENT) DRUG THERAPY Procedures Code Description Performed By Performed On CARDIOLOG ABIOLA MILES 07/29/2014 29641 ROUTINE VENIPUNCTURE 08/01/2014 44536 CBC 08/01/2014 [id number] GFR CALC (RESULT ONLY) 08/01/2014 01249 CMP 08/01/2014 48209 MAGNESIUM 08/01/2014 76316 LIPASE 08/01/2014 53868 VITAMIN D 25-HYDROXY (D2,D3 , TOTAL) 08/01/2014 86902 VIT B 12 08/01/2014 83447 DILANTIN 08/01/2014 34832 ROUTINE VENIPUNCTURE 10/14/2014 66826 HEMOCCULT 10/14/2014 34014 CMP 10/14/2014 57894 MAGNESIUM 10/14/2014 [id number] GFR CALC (RESULT ONLY) 10/14/2014 25580 ROUTINE VENIPUNCTURE 10/22/2014 10070 CMP 10/23/2014 [id number] GFR CALC (RESULT ONLY) 10/23/2014 89463 MAGNESIUM 10/23/2014 Results Test Result Range Complete blood count (CBC) with automated white blood cell (WBC) differential - 07/11/16 23:15 Blood leukocytes automated count (number/volume) 10.5 10*3/uL 4.3-11.0 Blood erythrocytes automated count (number/volume) 3.20 10*6/uL 4.35-5.85 Venous blood hemoglobin measurement (mass/volume) 8.6 g/dL 11.5-16.0 Blood hematocrit (volume fraction) 29 % 35-52 Automated erythrocyte mean corpuscular volume 91 [foz_us] 80-99 Automated erythrocyte mean corpuscular hemoglobin (mass per erythrocyte) 27 pg 25-34 Automated erythrocyte mean corpuscular hemoglobin concentration measurement ( mass/volume) 30 g/dL 32-36 Automated erythrocyte distribution width ratio 16.4 % 10.0-14.5 Automated blood platelet count (count/volume) 311 10*3/uL 130-400 Automated blood platelet mean volume measurement 11.2 [foz_us] 7.4-10.4 Automated blood neutrophils/100 leukocytes 69 % 42-75 Automated blood lymphocytes/100 leukocytes 17 % 12-44 Blood monocytes/100 leukocytes 10 % 0-12 Automated blood eosinophils/100 leukocytes 4 % 0-10 Automated blood basophils/100 leukocytes 0 % 0-10 Blood neutrophils automated count (number/volume) 7.2 10*3 1.8-7.8 Blood lymphocytes automated count (number/volume) 1.8 10*3 1.0-4.0 Blood monocytes automated count (number/volume) 1.0 10*3 0.0-1.0 Automated eosinophil count 0.4 10*3/uL 0.0-0.3 Automated blood basophil count (count/volume) 0.0 10*3/uL 0.0-0.1 Comprehensive metabolic panel - 07/11/16 23:15 Serum or plasma sodium measurement (moles/volume) 139 mmol/L 135-145 Serum or plasma potassium measurement (moles/volume) 4.8 mmol/L 3.6-5.0 Serum or plasma chloride measurement (moles/volume) 110 mmol/L 98-107 Carbon dioxide 19 mmol/L 21-32 Serum or plasma anion gap determination (moles/volume) 10 mmol/L 5-14 Serum or plasma urea nitrogen measurement (mass/volume) 33 mg/dL 7-18 Serum or plasma creatinine measurement (mass/volume) 2.32 mg/dL 0.60-1.30 Serum or plasma urea nitrogen/creatinine mass ratio 14 NRG Serum or plasma creatinine measurement with calculation of estimated glomerular filtration rate 20 NRG Serum or plasma glucose measurement (mass/volume) 95 mg/dL 70-105 Serum or plasma calcium measurement (mass/volume) 8.3 mg/dL 8.5-10.1 Serum or plasma total bilirubin measurement (mass/volume) 0.3 mg/dL 0.1-1.0 Serum or plasma alkaline phosphatase measurement (enzymatic activity/volume) 92 U/L 40-136 Serum or plasma aspartate aminotransferase measurement (enzymatic activity/ volume) 23 U/L 5-34 Serum or plasma alanine aminotransferase measurement (enzymatic activity/volume ) 26 U/L 0-55 Serum or plasma protein measurement (mass/volume) 5.7 g/dL 6.4-8.2 Serum or plasma albumin measurement (mass/volume) 3.4 g/dL 3.2-4.5 Serum or plasma troponin i.cardiac measurement (mass/volume) - 07/11/16 23:15 Serum or plasma troponin i.cardiac measurement (mass/volume) < ng/ mL <0.30 Serum or plasma lithium measurement (moles/volume) - 07/11/16 23:15 BNP level 2005.8 pg/mL <100.0 Serum or plasma C reactive protein measurement (mass/volume) - 07/11/16 23:15 Serum or plasma C reactive protein measurement (mass/volume) 0.44 mg /dL 0.00-0.50 Complete blood count (CBC) with automated white blood cell (WBC) differential - 07/12/16 04:25 Blood leukocytes automated count (number/volume) 9.8 10*3/uL 4.3-11.0 Blood erythrocytes automated count (number/volume) 3.21 10*6/uL 4.35-5.85 Venous blood hemoglobin measurement (mass/volume) 8.5 g/dL 11.5-16.0 Blood hematocrit (volume fraction) 29 % 35-52 Automated erythrocyte mean corpuscular volume 92 [foz_us] 80-99 Automated erythrocyte mean corpuscular hemoglobin (mass per erythrocyte) 27 pg 25-34 Automated erythrocyte mean corpuscular hemoglobin concentration measurement ( mass/volume) 29 g/dL 32-36 Automated erythrocyte distribution width ratio 16.2 % 10.0-14.5 Automated blood platelet count (count/volume) 285 10*3/uL 130-400 Automated blood platelet mean volume measurement 11.4 [foz_us] 7.4-10.4 Automated blood neutrophils/100 leukocytes 77 % 42-75 Automated blood lymphocytes/100 leukocytes 10 % 12-44 Blood monocytes/100 leukocytes 11 % 0-12 Automated blood eosinophils/100 leukocytes 2 % 0-10 Automated blood basophils/100 leukocytes 0 % 0-10 Blood neutrophils automated count (number/volume) 7.6 10*3 1.8-7.8 Blood lymphocytes automated count (number/volume) 1.0 10*3 1.0-4.0 Blood monocytes automated count (number/volume) 1.0 10*3 0.0-1.0 Automated eosinophil count 0.2 10*3/uL 0.0-0.3 Automated blood basophil count (count/volume) 0.0 10*3/uL 0.0-0.1 Comprehensive metabolic panel - 07/12/16 04:25 Serum or plasma sodium measurement (moles/volume) 140 mmol/L 135-145 Serum or plasma potassium measurement (moles/volume) 4.3 mmol/L 3.6-5.0 Serum or plasma chloride measurement (moles/volume) 109 mmol/L 98-107 Carbon dioxide 20 mmol/L 21-32 Serum or plasma anion gap determination (moles/volume) 11 mmol/L 5-14 Serum or plasma urea nitrogen measurement (mass/volume) 34 mg/dL 7-18 Serum or plasma creatinine measurement (mass/volume) 2.35 mg/dL 0.60-1.30 Serum or plasma urea nitrogen/creatinine mass ratio 14 NRG Serum or plasma creatinine measurement with calculation of estimated glomerular filtration rate 20 NRG Serum or plasma glucose measurement (mass/volume) 97 mg/dL 70-105 Serum or plasma calcium measurement (mass/volume) 8.4 mg/dL 8.5-10.1 Serum or plasma total bilirubin measurement (mass/volume) 0.3 mg/dL 0.1-1.0 Serum or plasma alkaline phosphatase measurement (enzymatic activity/volume) 93 U/L 40-136 Serum or plasma aspartate aminotransferase measurement (enzymatic activity/ volume) 19 U/L 5-34 Serum or plasma alanine aminotransferase measurement (enzymatic activity/volume ) 26 U/L 0-55 Serum or plasma protein measurement (mass/volume) 5.8 g/dL 6.4-8.2 Serum or plasma albumin measurement (mass/volume) 3.5 g/dL 3.2-4.5 Serum or plasma phosphate measurement (mass/volume) - 07/12/16 04:25 Serum or plasma phosphate measurement (mass/volume) 2.8 mg/dL 2.3-4.7 Magnesium - 07/12/16 04:25 Magnesium 2.2 mg/dL 1.8-2.4 Complete blood count (CBC) with automated white blood cell (WBC) differential - 07/13/16 04:05 Blood leukocytes automated count (number/volume) 7.0 10*3/uL 4.3-11.0 Blood erythrocytes automated count (number/volume) 2.97 10*6/uL 4.35-5.85 Venous blood hemoglobin measurement (mass/volume) 7.9 g/dL 11.5-16.0 Blood hematocrit (volume fraction) 27 % 35-52 Automated erythrocyte mean corpuscular volume 91 [foz_us] 80-99 Automated erythrocyte mean corpuscular hemoglobin (mass per erythrocyte) 27 pg 25-34 Automated erythrocyte mean corpuscular hemoglobin concentration measurement ( mass/volume) 29 g/dL 32-36 Automated erythrocyte distribution width ratio 15.9 % 10.0-14.5 Automated blood platelet count (count/volume) 257 10*3/uL 130-400 Automated blood platelet mean volume measurement 11.7 [foz_us] 7.4-10.4 Automated blood neutrophils/100 leukocytes 64 % 42-75 Automated blood lymphocytes/100 leukocytes 17 % 12-44 Blood monocytes/100 leukocytes 12 % 0-12 Automated blood eosinophils/100 leukocytes 6 % 0-10 Automated blood basophils/100 leukocytes 0 % 0-10 Blood neutrophils automated count (number/volume) 4.5 10*3 1.8-7.8 Blood lymphocytes automated count (number/volume) 1.2 10*3 1.0-4.0 Blood monocytes automated count (number/volume) 0.9 10*3 0.0-1.0 Automated eosinophil count 0.4 10*3/uL 0.0-0.3 Automated blood basophil count (count/volume) 0.0 10*3/uL 0.0-0.1 Whole blood basic metabolic panel - 07/13/16 04:05 Serum or plasma sodium measurement (moles/volume) 138 mmol/L 135-145 Serum or plasma potassium measurement (moles/volume) 4.3 mmol/L 3.6-5.0 Serum or plasma chloride measurement (moles/volume) 104 mmol/L 98-107 Carbon dioxide 22 mmol/L 21-32 Serum or plasma anion gap determination (moles/volume) 12 mmol/L 5-14 Serum or plasma urea nitrogen measurement (mass/volume) 34 mg/dL 7-18 Serum or plasma creatinine measurement (mass/volume) 2.31 mg/dL 0.60-1.30 Serum or plasma urea nitrogen/creatinine mass ratio 15 NRG Serum or plasma creatinine measurement with calculation of estimated glomerular filtration rate 21 NRG Serum or plasma glucose measurement (mass/volume) 73 mg/dL 70-105 Serum or plasma calcium measurement (mass/volume) 7.9 mg/dL 8.5-10.1 Serum or plasma phosphate measurement (mass/volume) - 07/13/16 04:05 Serum or plasma phosphate measurement (mass/volume) 3.2 mg/dL 2.3-4.7 Magnesium - 07/13/16 04:05 Magnesium 2.0 mg/dL 1.8-2.4 Complete blood count (CBC) with automated white blood cell (WBC) differential - 07/14/16 03:30 Blood leukocytes automated count (number/volume) 7.8 10*3/uL 4.3-11.0 Blood erythrocytes automated count (number/volume) 3.20 10*6/uL 4.35-5.85 Venous blood hemoglobin measurement (mass/volume) 8.6 g/dL 11.5-16.0 Blood hematocrit (volume fraction) 29 % 35-52 Automated erythrocyte mean corpuscular volume 90 [foz_us] 80-99 Automated erythrocyte mean corpuscular hemoglobin (mass per erythrocyte) 27 pg 25-34 Automated erythrocyte mean corpuscular hemoglobin concentration measurement ( mass/volume) 30 g/dL 32-36 Automated erythrocyte distribution width ratio 16.0 % 10.0-14.5 Automated blood platelet count (count/volume) 288 10*3/uL 130-400 Automated blood platelet mean volume measurement 11.3 [foz_us] 7.4-10.4 Automated blood neutrophils/100 leukocytes 62 % 42-75 Automated blood lymphocytes/100 leukocytes 19 % 12-44 Blood monocytes/100 leukocytes 11 % 0-12 Automated blood eosinophils/100 leukocytes 7 % 0-10 Automated blood basophils/100 leukocytes 0 % 0-10 Blood neutrophils automated count (number/volume) 4.8 10*3 1.8-7.8 Blood lymphocytes automated count (number/volume) 1.5 10*3 1.0-4.0 Blood monocytes automated count (number/volume) 0.9 10*3 0.0-1.0 Automated eosinophil count 0.6 10*3/uL 0.0-0.3 Automated blood basophil count (count/volume) 0.0 10*3/uL 0.0-0.1 Whole blood basic metabolic panel - 07/14/16 03:30 Serum or plasma sodium measurement (moles/volume) 140 mmol/L 135-145 Serum or plasma potassium measurement (moles/volume) 4.2 mmol/L 3.6-5.0 Serum or plasma chloride measurement (moles/volume) 102 mmol/L 98-107 Carbon dioxide 28 mmol/L 21-32 Serum or plasma anion gap determination (moles/volume) 10 mmol/L 5-14 Serum or plasma urea nitrogen measurement (mass/volume) 41 mg/dL 7-18 Serum or plasma creatinine measurement (mass/volume) 2.23 mg/dL 0.60-1.30 Serum or plasma urea nitrogen/creatinine mass ratio 18 NRG Serum or plasma creatinine measurement with calculation of estimated glomerular filtration rate 21 NRG Serum or plasma glucose measurement (mass/volume) 81 mg/dL 70-105 Serum or plasma calcium measurement (mass/volume) 8.2 mg/dL 8.5-10.1 Serum or plasma phosphate measurement (mass/volume) - 07/14/16 03:30 Serum or plasma phosphate measurement (mass/volume) 3.5 mg/dL 2.3-4.7 Magnesium - 07/14/16 03:30 Magnesium 2.1 mg/dL 1.8-2.4 Complete blood count (CBC) with automated white blood cell (WBC) differential - 07/15/16 05:06 Blood leukocytes automated count (number/volume) 6.9 10*3/uL 4.3-11.0 Blood erythrocytes automated count (number/volume) 3.07 10*6/uL 4.35-5.85 Venous blood hemoglobin measurement (mass/volume) 8.2 g/dL 11.5-16.0 Blood hematocrit (volume fraction) 27 % 35-52 Automated erythrocyte mean corpuscular volume 89 [foz_us] 80-99 Automated erythrocyte mean corpuscular hemoglobin (mass per erythrocyte) 27 pg 25-34 Automated erythrocyte mean corpuscular hemoglobin concentration measurement ( mass/volume) 30 g/dL 32-36 Automated erythrocyte distribution width ratio 16.0 % 10.0-14.5 Automated blood platelet count (count/volume) 271 10*3/uL 130-400 Automated blood platelet mean volume measurement 11.3 [foz_us] 7.4-10.4 Automated blood neutrophils/100 leukocytes 62 % 42-75 Automated blood lymphocytes/100 leukocytes 17 % 12-44 Blood monocytes/100 leukocytes 12 % 0-12 Automated blood eosinophils/100 leukocytes 8 % 0-10 Automated blood basophils/100 leukocytes 0 % 0-10 Blood neutrophils automated count (number/volume) 4.3 10*3 1.8-7.8 Blood lymphocytes automated count (number/volume) 1.2 10*3 1.0-4.0 Blood monocytes automated count (number/volume) 0.9 10*3 0.0-1.0 Automated eosinophil count 0.5 10*3/uL 0.0-0.3 Automated blood basophil count (count/volume) 0.0 10*3/uL 0.0-0.1 Whole blood basic metabolic panel - 07/15/16 05:06 Serum or plasma sodium measurement (moles/volume) 141 mmol/L 135-145 Serum or plasma potassium measurement (moles/volume) 4.1 mmol/L 3.6-5.0 Serum or plasma chloride measurement (moles/volume) 101 mmol/L 98-107 Carbon dioxide 28 mmol/L 21-32 Serum or plasma anion gap determination (moles/volume) 12 mmol/L 5-14 Serum or plasma urea nitrogen measurement (mass/volume) 48 mg/dL 7-18 Serum or plasma creatinine measurement (mass/volume) 2.20 mg/dL 0.60-1.30 Serum or plasma urea nitrogen/creatinine mass ratio 22 NRG Serum or plasma creatinine measurement with calculation of estimated glomerular filtration rate 22 NRG Serum or plasma glucose measurement (mass/volume) 77 mg/dL 70-105 Serum or plasma calcium measurement (mass/volume) 8.0 mg/dL 8.5-10.1 Serum or plasma phosphate measurement (mass/volume) - 07/15/16 05:06 Serum or plasma phosphate measurement (mass/volume) 3.5 mg/dL 2.3-4.7 Magnesium - 07/15/16 05:06 Magnesium 2.0 mg/dL 1.8-2.4 Complete blood count (CBC) with automated white blood cell (WBC) differential - 07/17/16 15:30 Blood leukocytes automated count (number/volume) 6.8 10*3/uL 4.3-11.0 Blood erythrocytes automated count (number/volume) 2.79 10*6/uL 4.35-5.85 Venous blood hemoglobin measurement (mass/volume) 7.4 g/dL 11.5-16.0 Blood hematocrit (volume fraction) 26 % 35-52 Automated erythrocyte mean corpuscular volume 92 [foz_us] 80-99 Automated erythrocyte mean corpuscular hemoglobin (mass per erythrocyte) 27 pg 25-34 Automated erythrocyte mean corpuscular hemoglobin concentration measurement ( mass/volume) 29 g/dL 32-36 Automated erythrocyte distribution width ratio 16.3 % 10.0-14.5 Automated blood platelet count (count/volume) 232 10*3/uL 130-400 Automated blood platelet mean volume measurement 11.1 [foz_us] 7.4-10.4 Automated blood neutrophils/100 leukocytes 63 % 42-75 Automated blood lymphocytes/100 leukocytes 17 % 12-44 Blood monocytes/100 leukocytes 14 % 0-12 Automated blood eosinophils/100 leukocytes 6 % 0-10 Automated blood basophils/100 leukocytes 0 % 0-10 Blood neutrophils automated count (number/volume) 4.2 10*3 1.8-7.8 Blood lymphocytes automated count (number/volume) 1.2 10*3 1.0-4.0 Blood monocytes automated count (number/volume) 1.0 10*3 0.0-1.0 Automated eosinophil count 0.4 10*3/uL 0.0-0.3 Automated blood basophil count (count/volume) 0.0 10*3/uL 0.0-0.1 Comprehensive metabolic panel - 07/17/16 15:30 Serum or plasma sodium measurement (moles/volume) 140 mmol/L 135-145 Serum or plasma potassium measurement (moles/volume) 4.3 mmol/L 3.6-5.0 Serum or plasma chloride measurement (moles/volume) 99 mmol/L 98-107 Carbon dioxide 28 mmol/L 21-32 Serum or plasma anion gap determination (moles/volume) 13 mmol/L 5-14 Serum or plasma urea nitrogen measurement (mass/volume) 43 mg/dL 7-18 Serum or plasma creatinine measurement (mass/volume) 1.72 mg/dL 0.60-1.30 Serum or plasma urea nitrogen/creatinine mass ratio 25 NRG Serum or plasma creatinine measurement with calculation of estimated glomerular filtration rate 29 NRG Serum or plasma glucose measurement (mass/volume) 83 mg/dL 70-105 Serum or plasma calcium measurement (mass/volume) 7.9 mg/dL 8.5-10.1 Serum or plasma total bilirubin measurement (mass/volume) 0.4 mg/dL 0.1-1.0 Serum or plasma alkaline phosphatase measurement (enzymatic activity/volume) 67 U/L 40-136 Serum or plasma aspartate aminotransferase measurement (enzymatic activity/ volume) 22 U/L 5-34 Serum or plasma alanine aminotransferase measurement (enzymatic activity/volume ) 22 U/L 0-55 Serum or plasma protein measurement (mass/volume) 5.3 g/dL 6.4-8.2 Serum or plasma albumin measurement (mass/volume) 3.3 g/dL 3.2-4.5 Blood lactic acid measurement (moles/volume) - 07/17/16 19:00 Blood lactic acid measurement (moles/volume) 1.1 mmol/L 0.5-2.0 Serum or plasma troponin i.cardiac measurement (mass/volume) - 07/17/16 19:00 Serum or plasma troponin i.cardiac measurement (mass/volume) < ng/ mL <0.30 Serum or plasma lithium measurement (moles/volume) - 07/17/16 19:00 BNP level 1350.6 pg/mL <100.0 RED CELLS LEUKO REDUCED AS1 - 07/17/16 19:00 RED CELLS LEUKO REDUCED AS1 TRANSFUSED 07/17/16 2340 NRG Blood type T Indirect antibody screen panel - 07/17/16 19:00 ABO+Rh group AP NRG Transfusion band number [id number] NRG Blood group antibody screen NEGATIVE NRG Bacterial blood culture - 07/17/16 19:00 Bacterial blood culture NG NRG Serum or plasma phenytoin measurement (mass/volume) - 07/17/16 19:00 Serum or plasma phenytoin measurement (mass/volume) 2.2 ug/mL 10.0-20.0 Bacterial blood culture - 07/17/16 19:13 Bacterial blood culture NG NRG Influenza virus A and B antigen detection - 07/17/16 19:50 FLU RESULT NEGATIVE FOR INFLUENZA A AND B ANTIGENS BY IA NRG Complete urinalysis with reflex to culture - 07/17/16 20:47 Urine color determination YELLOW NRG Urine clarity determination CLEAR NRG Urine pH measurement by test strip 6.5 5-9 Specific gravity of urine by test strip 1.010 1.016- 1.022 Urine protein assay by test strip, semi-quantitative 2+ NEGATIVE Urine glucose detection by automated test strip NEGATIVE NEGATIVE Erythrocytes detection in urine sediment by light microscopy 4+ NEGATIVE Urine ketones detection by automated test strip NEGATIVE NEGATIVE Urine nitrite detection by test strip NEGATIVE NEGATIVE Urine total bilirubin detection by test strip NEGATIVE NEGATIVE Urine urobilinogen measurement by automated test strip (mass/volume) NORMAL NORMAL Urine leukocyte esterase detection by dipstick 3+ NEGATIVE Automated urine sediment erythrocyte count by microscopy (number/high power field) [HPF] NRG Automated urine sediment leukocyte count by microscopy (number/high power field ) [HPF] NRG Bacteria detection in urine sediment by light microscopy TRACE NRG Squamous epithelial cells detection in urine sediment by light microscopy 5-10 NRG Crystals detection in urine sediment by light microscopy NONE NRG Casts detection in urine sediment by light microscopy NONE NRG Mucus detection in urine sediment by light microscopy NEGATIVE NRG Complete urinalysis with reflex to culture YES NRG Bacterial urine culture - 07/17/16 20:47 URINE CULTURE RESULTS 10,000/ML - 100,000/ML NRG Stool occult blood screen - 07/18/16 03:40 Stool gastrointestinal hemoglobin detection POSITIVE NEGATIVE Complete blood count (CBC) with automated white blood cell (WBC) differential - 07/18/16 07:55 Blood leukocytes automated count (number/volume) 7.2 10*3/uL 4.3-11.0 Blood erythrocytes automated count (number/volume) 3.70 10*6/uL 4.35-5.85 Venous blood hemoglobin measurement (mass/volume) 10.1 g/dL 11.5-16.0 Blood hematocrit (volume fraction) 33 % 35-52 Automated erythrocyte mean corpuscular volume 89 [foz_us] 80-99 Automated erythrocyte mean corpuscular hemoglobin (mass per erythrocyte) 27 pg 25-34 Automated erythrocyte mean corpuscular hemoglobin concentration measurement ( mass/volume) 31 g/dL 32-36 Automated erythrocyte distribution width ratio 16.4 % 10.0-14.5 Automated blood platelet count (count/volume) 205 10*3/uL 130-400 Automated blood platelet mean volume measurement 11.2 [foz_us] 7.4-10.4 Automated blood neutrophils/100 leukocytes 70 % 42-75 Automated blood lymphocytes/100 leukocytes 14 % 12-44 Blood monocytes/100 leukocytes 12 % 0-12 Automated blood eosinophils/100 leukocytes 5 % 0-10 Automated blood basophils/100 leukocytes 0 % 0-10 Blood neutrophils automated count (number/volume) 5.0 10*3 1.8-7.8 Blood lymphocytes automated count (number/volume) 1.0 10*3 1.0-4.0 Blood monocytes automated count (number/volume) 0.9 10*3 0.0-1.0 Automated eosinophil count 0.3 10*3/uL 0.0-0.3 Automated blood basophil count (count/volume) 0.0 10*3/uL 0.0-0.1 Stool occult blood screen - 07/18/16 11:30 Stool gastrointestinal hemoglobin detection POSITIVE NEGATIVE Stool occult blood screen - 07/19/16 08:47 Stool gastrointestinal hemoglobin detection POSITIVE NEGATIVE Complete blood count (CBC) with automated white blood cell (WBC) differential - 07/20/16 14:00 Blood leukocytes automated count (number/volume) 7.2 10*3/uL 4.3-11.0 Blood erythrocytes automated count (number/volume) 3.43 10*6/uL 4.35-5.85 Venous blood hemoglobin measurement (mass/volume) 9.4 g/dL 11.5-16.0 Blood hematocrit (volume fraction) 32 % 35-52 Automated erythrocyte mean corpuscular volume 92 [foz_us] 80-99 Automated erythrocyte mean corpuscular hemoglobin (mass per erythrocyte) 27 pg 25-34 Automated erythrocyte mean corpuscular hemoglobin concentration measurement ( mass/volume) 30 g/dL 32-36 Automated erythrocyte distribution width ratio 17.1 % 10.0-14.5 Automated blood platelet count (count/volume) 201 10*3/uL 130-400 Automated blood platelet mean volume measurement 11.7 [foz_us] 7.4-10.4 Automated blood neutrophils/100 leukocytes 63 % 42-75 Automated blood lymphocytes/100 leukocytes 17 % 12-44 Blood monocytes/100 leukocytes 14 % 0-12 Automated blood eosinophils/100 leukocytes 5 % 0-10 Automated blood basophils/100 leukocytes 0 % 0-10 Blood neutrophils automated count (number/volume) 4.5 10*3 1.8-7.8 Blood lymphocytes automated count (number/volume) 1.3 10*3 1.0-4.0 Blood monocytes automated count (number/volume) 1.0 10*3 0.0-1.0 Automated eosinophil count 0.4 10*3/uL 0.0-0.3 Automated blood basophil count (count/volume) 0.0 10*3/uL 0.0-0.1 Whole blood basic metabolic panel - 07/20/16 14:00 Serum or plasma sodium measurement (moles/volume) 145 mmol/L 135-145 Serum or plasma potassium measurement (moles/volume) 4.1 mmol/L 3.6-5.0 Serum or plasma chloride measurement (moles/volume) 109 mmol/L 98-107 Carbon dioxide 26 mmol/L 21-32 Serum or plasma anion gap determination (moles/volume) 10 mmol/L 5-14 Serum or plasma urea nitrogen measurement (mass/volume) 27 mg/dL 7-18 Serum or plasma creatinine measurement (mass/volume) 1.67 mg/dL 0.60-1.30 Serum or plasma urea nitrogen/creatinine mass ratio 16 NRG Serum or plasma creatinine measurement with calculation of estimated glomerular filtration rate 30 NRG Serum or plasma glucose measurement (mass/volume) 108 mg/dL 70-105 Serum or plasma calcium measurement (mass/volume) 8.2 mg/dL 8.5-10.1 Whole blood hemoglobin and hematocrit panel - 07/25/16 15:30 Venous blood hemoglobin measurement (mass/volume) 10.3 g/dL 11.5-16.0 Blood hematocrit (volume fraction) 36 % 35-52 Encounters ACCT No. Visit Date/Time Discharge Status Pt. Type Provider Facility Loc./Unit Complaint [id number] 05/01/2017 09:01:00 07/30/2017 00:01:00 DIS Outpatient JERRY RUBALCAVA MD [facility] ONC [id number] 02/27/2017 10:42:00 04/15/2017 00:01:00 DIS Outpatient JERRY RUBALCAVA MD [facility] ONC [id number] 01/31/2017 14:03:00 02/09/2017 00:01:00 DIS Outpatient JERRY RUBALCAVA MD [facility] ONC [id number] 10/24/2016 11:41:00 11/07/2016 00:01:00 DIS Outpatient JERRY RUBALCAVA MD [facility] ONC [id number] 07/25/2016 15:54:00 07/25/2016 23:59:59 CLS Outpatient MIKAEL FLORENCE DO [facility] HH ANEMIA [id number] 07/20/2016 15:04:00 07/20/2016 23:59:59 CLS Outpatient JOHNY TRAN DO [facility] ANEMIA OF KIDNEY DISEASE, CHRONIC RENAL FAILURE [id number] 07/17/2016 21:06:00 07/19/2016 14:38:00 DIS Inpatient JOHNY TRAN DO [facility] 4TH ANEMIA, PNEUMONIA, WEAKNESS CRI [id number] 07/17/2016 15:47:00 07/17/2016 23:59:59 CLS Outpatient SAM HUERTAS, RODRIGO [place] [facility] CHF, ANEMIA [id number] 07/12/2016 00:55:00 07/15/2016 14:20:00 DIS Inpatient FARIHA TRAN DOI [facility] [address] ACUTE HEART FAILURE, CHRONIC RENAL FAILURE,ANEMIA [id number] 10/10/2014 09:54:00 10/10/2014 12:25:00 DIS Emergency SID HUERTAS, GUILLERMO [place] [facility] ER [id number] 02/25/2014 16:45:00 02/26/2014 16:50:00 DIS Inpatient SID HUERTAS, GUILLERMO [place] [facility] ICU [id number] 02/22/2014 18:36:00 02/24/2014 17:45:00 DIS Inpatient KENTON GILBERT DO A [facility] 4TH [id number] 07/31/2017 00:34:00 PEN Preadmit KHADAR HUERTAS, JERRY [facility] ONC [id number] 10/22/2014 15:49:00 10/22/2014 23:59:59 CLS Outpatient DEANNA BROWN APRN [id number] 10/14/2014 09:09:00 10/14/2014 23:59:59 CLS Outpatient DEANNA BROWN APRN [id number] 08/01/2014 08:17:00 08/01/2014 23:59:59 CLS Outpatient DONNA EMERY DO [id number] 07/29/2014 14:32:00 07/29/2014 23:59:59 CLS Outpatient ISMAELL DEANNA ROSENBERG
--- NOTE | 2017-08-02 17:38 | Consultation-Cardiology ---
HPI-Cardiology Cardiology Consultation: Date of Consultation 08/02/17 Time Seen by Provider: 17:00 Date of Admission Attending Physician Paulino Worthy DO Admitting Physician Reji Persaud DO Consulting Physician DANIEL ALEXANDER MD, MA, FACP, FACC, [facility] Primary molding process technician: Dr Haynes HPI: Chief Complaint: Reason for consultation: H/o VF arrest several years ago 76 yo woman who initially presented to the [facility] and has been transferred here for further management. Notes gen malaise and weakness and tiredness. Denies cp or palp or syncope or shortness of breath Review of Systems-Cardiology Review of Systems Constitutional: As described under HPI Eyes: No vision change Ears/Nose/Throat: No ear discharge, No nasal drainage, No recent hearing loss Respiratory: As described under HPI Cardiovascular: As described under HPI Gastrointestinal: No diarrhea, No nausea, No vomiting Genitourinary: dysuria, No hematuria Musculoskeletal: back pain (chronic) Psychiatric/Neurological: No focal weakness, No syncope Hematologic: No bleeding abnormalities [id number] Hx Patient Social History Smoking Status: Never a Smoker Immunizations Up To Date Tetanus Booster (TDap): Unknown Date of Pneumonia Vaccine: Jul 20, 2011 Date of Influenza Vaccine: Apr 22, 2016 Past Medical History PMH As described under Assessment. Family Medical History Family History: Cardiovascular disease Completed stroke Hypertension Seizure disorder No Family History of: AIDS Abdominal aortic aneurysm Sunil's disease Alcoholism Alzheimer's disease Aphasia Arthritis Asthma Cancer of mouth Cataracts Colon cancer Congenital disease Congenital heart disease Coronary thrombosis Cystic fibrosis Deafness or hearing loss Dementia Diabetes mellitus Drug abuse Dysphasia Fibrocystic disease of breast Gastroenteritis Glaucoma Headache disorder Hypercholesterolemia Infertility Kidney disease Myocardial infarction Neoplasm Not obtainable due to adoption Osteoporosis Parkinson's disease Prostate cancer Psychosocial problem Respiratory disorder Severe allergy Thyroid disease Tuberculosis Visual disorder Allergies and Home Medications Allergies Coded Allergies: No Known Drug Allergies (Unverified , 08/02/17) Home Medications Albuterol Sulfate 18 Gm Hfa.aer.ad, 2 PUFF IH Q4H PRN for SHORTNESS OF BREATH, ( Reported) Ascorbic Acid 1,000 Mg Tablet, 1,000 MG PO DAILY, (Reported) Aspirin 81 Mg Tabec, 81 MG PO DAILY, (Reported) Calcium Carbonate/Vitamin D3 1 Each Tablet, 1 TAB PO DAILY, (Reported) Cefdinir 300 Mg Capsule, 300 MG PO twice a day, #14 Prescribed by: GUILLERMO LAU on 07/19/16 1214 Cholecalciferol (Vitamin D3) 1,000 Unit Tablet, 1,000 UNIT PO DAILY, (Reported) Clopidogrel Bisulfate 75 Mg Tablet, 75 MG PO DAILY, (Reported) Furosemide 40 Mg Tablet, 40 MG PO DAILY, (Reported) Levothyroxine Sodium 200 Mcg Tablet, 200 MCG PO DAILY, (Reported) Magnesium Oxide 500 Mg Capsule, 500 MG PO DAILY, (Reported) Metoprolol Succinate 50 Mg Tab.er.24h, 50 MG PO BID, (Reported) Multivits Min/Iron/FA/Herb#186 1 Each Tablet, 1 CAP PO DAILY, (Reported) Simvastatin 20 Mg Tablet, 20 MG PO HS, (Reported) Vitamin B Complex & Vit C No.4 150 Mg Tablet, 150 MG PO DAILY, (Reported) Physical Exam-Cardiology Physical Exam Vital Signs/I&O Vital Sign - Last 12Hours 08/02/17 17:25 O2 Delivery Nasal Cannula O2 Flow Rate 4.00 Capillary Refill : Constitutional: AAO x 3, well-developed, well-nourished (Thin appearing) HEENT: PERRL, EOMI, oral hygience is good, No xanthelasmas are seen Neck: carotid pulses are 2 + bilaterally, with good upstrokes Respiratory: No accessory muscle use, other (Good bilat air entry; somewhat diminished at the bases) Cardiovascular: regular rate-rhythm, S1 and S2, systolic murmur (soft ALCIDES at card base) Gastrointestinal: No tender, soft, No guarding, No rebound, audible bowel sounds Extremities: No clubbing, No cyanosis, No significant edema Neurologic/Psychiatric: grossly intact, power is 5/5 both on sides Skin: No rash on exposed areas, No ulcerations on exposed areas Data Review Labs Blood work at [facility] 08/02/17: H/H 11.3/35.2, Na 140, K 3.9, Mg 1, Cr 3.48, CO2 6 , Plt 188K, Troponin WNL ECG Impression ECG Comment ECG on 08/02/17 at this hosp NSR with rate approx 98 bpm, no evidence of ACS A/P-Cardiology Assessment/Admission Diagnosis Acute renal failure with severe metabolic acidosis, being managed by ICU and Med Services No evidence of any acute cor syndrome Ventricular fibrillation arrest in 2007, details unknown, had an ICD implanted by Dr. 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
[2017-08-02] MEDS ORDERED: ETOMIDATE IV SOLN 20 MG/10 ML VIAL IV ONE (18:00)
[2017-08-02] MEDS ORDERED: MIDAZOLAM 5 MG/5 ML (VERSED) VIAL IV ONE (18:00)
[2017-08-02] MEDS: MAGNESIUM 1 GM/100 ML IVPB 100 ML IV SCH ×2 (18:10→18:49)
[2017-08-02] MEDS ORDERED: INFLUENZA TRIvalent 2017-2018 0.5 ML/45 MCG SYR IM ONE (18:15)
[2017-08-02 18:21] LABS: HEMOGLOBIN 10.4 G/DL (11.5-16.0); MEAN PLATELET VOLUME 13.1 FL (7.4-10.4); RED BLOOD COUNT 3.34 10^6/uL (4.35-5.85); RED CELL DISTRIBUTION WIDTH 15.5 % (10.0-14.5); WHITE BLOOD COUNT 10.1 10^3/uL (4.3-11.0)
[2017-08-02 18:39] LABS: ALBUMIN 3.9 GM/DL (3.2-4.5); BILIRUBIN,TOTAL 0.7 MG/DL (0.1-1.0); CREATININE SERUM 3.14 MG/DL (0.60-1.30); POTASSIUM 3.4 MMOL/L (3.6-5.0); TOTAL PROTEIN 6.3 GM/DL (6.4-8.2)
[2017-08-02] MEDS ORDERED: SODIUM BICARB 8.4% 50 MEQ/50 ML (ABBOTT) SYR IV NR (19:15)
[2017-08-02] MEDS ORDERED: RT-ALBUTEROL/IPRATROPIUM 3 ML (DUONEB) VIAL INH PRN (21:15)
[2017-08-02] MEDS: POTASSIUM CL 10MEQ/50ML IVPB 50 ML IV SCH ×2 (21:37→22:53)
[2017-08-02] MEDS: SODIUM BICARBONATE 8.4% VIAL 150 MEQ in D5W 1000 ML IV SOLUTION 1,000 ML IV SCH (21:37)
[2017-08-02] MEDS: MICONAZOLE 2% POWDER (DESENEX AF) 90 GM TOP SCH (21:37)
[2017-08-02] MEDS: CATHETER FLUSH 10 ML SYR IV SCH (21:38)
[2017-08-03] VITALS (32 sets, daily range): BP systolic 84–151; BP diastolic 46–93
[2017-08-03 00:20] LABS: HEMOGLOBIN 10.4 G/DL (11.5-16.0); MEAN PLATELET VOLUME 13.5 FL (7.4-10.4); RED BLOOD COUNT 3.3 10^6/uL (4.35-5.85); RED CELL DISTRIBUTION WIDTH 15.8 % (10.0-14.5); WHITE BLOOD COUNT 11.6 10^3/uL (4.3-11.0)
[2017-08-03] MEDS ORDERED: LORazepam INJ 2 MG/ML (ATIVAN) VIAL ONE ×2 (00:30→05:28)
[2017-08-03 00:38] LABS: ALBUMIN 3.8 GM/DL (3.2-4.5); BILIRUBIN,TOTAL 0.8 MG/DL (0.1-1.0); CALCIUM 7.1 MG/DL (8.5-10.1); POTASSIUM 4.5 MMOL/L (3.6-5.0); TOTAL PROTEIN 6.2 GM/DL (6.4-8.2)
[2017-08-03 00:54] LABS: CREATININE SERUM 2.99 MG/DL (0.60-1.30)
[2017-08-03] MEDS ORDERED: PROPOFOL DRIP (ICU) 100 ML IV ONE ×2 (00:54→06:47)
[2017-08-03] MEDS ORDERED: LORazepam INJ 2 MG/ML (ATIVAN) VIAL IV ONE ×2 (02:00→03:15)
[2017-08-03] MEDS ORDERED: PROPOFOL DRIP IV SCH (02:00)
[2017-08-03] MEDS ORDERED: fentaNYL INJECTION 100 MCG/2 ML AMP IV PRN (02:00)
[2017-08-03] MEDS ORDERED: SODIUM BICARB 8.4% 50 MEQ/50 ML (ABBOTT) SYR IV ONE ×3 (02:00→05:00)
[2017-08-03 02:24] LABS: ABG BASE EXCESS -8.9 MMOL/L (-2.5-2.5); ABG PCO2 35 MMHG (35-45); ABG PO2 233 MMHG (79-93); ABG TCO2 17.5 MMOL/L (21.0-31.0)
[2017-08-03 02:25] LABS: ABG OXYGEN SATURATION 95 % (94-100); ALLENS TEST YES-POS; INSPIRED O2 50%; PATIENT TEMP 97.8; VENTILATOR YES
[2017-08-03] MEDS: PANTOPRAZOLE 40 MG/10 ML (PROTONIX) VIAL IV SCH ×2 (02:52→14:10)
[2017-08-03] MEDS: inSUlin (REGULAR) HUMAN 1 UNIT/0.01 ML (CHARGE PER UNIT) SC SCH ×6 (02:58→23:17)
[2017-08-03] MEDS: POTASSIUM CL 10MEQ/50ML IVPB 50 ML IV SCH ×5 (03:34→23:55)
[2017-08-03] MEDS: NS IV SCH ×2 (04:10)
[2017-08-03] MEDS: LEVETIRACETAM IV SCH ×2 (04:10)
[2017-08-03] MEDS: cefTRIAXone 2 GM/NS 50 ML IVPB IV SCH ×2 (04:11)
[2017-08-03] MEDS: CATHETER FLUSH 10 ML SYR IV SCH ×3 (04:11→23:21)
[2017-08-03 04:19] LABS: BASOPHILS % (AUTO) 0 % (0-10); EOSINOPHILS % (AUTO) 0 % (0-10); HEMATOCRIT 27 % (35-52); HEMOGLOBIN 9.1 G/DL (11.5-16.0); LYMPHOCYTES # (AUTO) 0.4 X 10^3 (1.0-4.0); LYMPHOCYTES % (AUTO) 4 % (12-44); MEAN CORPUSCULAR HEMOGLOBIN 32 PG (25-34); MEAN CORPUSCULAR HGB CONC 34 G/DL (32-36); MEAN CORPUSCULAR VOLUME 94 FL (80-99); MEAN PLATELET VOLUME 13.7 FL (7.4-10.4); MONOCYTES # (AUTO) 0.3 X 10^3 (0.0-1.0); MONOCYTES % (AUTO) 3 % (0-12); NEUTROPHILS % (AUTO) 92 % (42-75); PLATELET COUNT 144 10^3/uL (130-400); RED BLOOD COUNT 2.84 10^6/uL (4.35-5.85); RED CELL DISTRIBUTION WIDTH 15.2 % (10.0-14.5); WHITE BLOOD COUNT 9.7 10^3/uL (4.3-11.0)
[2017-08-03 04:34] LABS: ALBUMIN 3.5 GM/DL (3.2-4.5); BILIRUBIN,TOTAL 0.8 MG/DL (0.1-1.0); CALCIUM 6.9 MG/DL (8.5-10.1); CREATININE SERUM 2.99 MG/DL (0.60-1.30); PHOSPHORUS 4.7 MG/DL (2.3-4.7); POTASSIUM 3.1 MMOL/L (3.6-5.0); TOTAL PROTEIN 5.6 GM/DL (6.4-8.2)
--- NOTE | 2017-08-03 05:17 | Pulmonary Consultation ---
History of Present Illness History of Present Illness Date of Consultation 08/03/17 05:12 Time Seen by Provider: 06:47 Date of Admission History of Present Illness 76yo with hx of CKD, and CHF transferred here from [facility] [place] level [place]. Pt was found to have acute on chronic renal failure and severe dehydration. After arrival to our ICU she started having acute seizures that resolved with prior to giving Ativan. Keppra was started and head CT scan was done. Head CT shows no acute change. Pt is on a Bicarb gtt for metabolic acidosis. I am consulted for ICU management. Allergies and Home Medications Allergies Coded Allergies: No Known Drug Allergies (Unverified , 08/02/17) Home Medications Albuterol Sulfate 18 Gm Hfa.aer.ad, 2 PUFF IH Q4H PRN for SHORTNESS OF BREATH, ( Reported) Ascorbic Acid 1,000 Mg Tablet, 1,000 MG PO DAILY, (Reported) Aspirin 81 Mg Tabec, 81 MG PO DAILY, (Reported) Calcium Carbonate/Vitamin D3 1 Each Tablet, 1 TAB PO DAILY, (Reported) Cefdinir 300 Mg Capsule, 300 MG PO twice a day, #14 Prescribed by: GUILLERMO LAU on 07/19/16 1214 Cholecalciferol (Vitamin D3) 1,000 Unit Tablet, 1,000 UNIT PO DAILY, (Reported) Clopidogrel Bisulfate 75 Mg Tablet, 75 MG PO DAILY, (Reported) Furosemide 40 Mg Tablet, 40 MG PO DAILY, (Reported) Levothyroxine Sodium 200 Mcg Tablet, 200 MCG PO DAILY, (Reported) Magnesium Oxide 500 Mg Capsule, 500 MG PO DAILY, (Reported) Metoprolol Succinate 50 Mg Tab.er.24h, 50 MG PO BID, (Reported) Multivits Min/Iron/FA/Herb#186 1 Each Tablet, 1 CAP PO DAILY, (Reported) Simvastatin 20 Mg Tablet, 20 MG PO HS, (Reported) Vitamin B Complex & Vit C No.4 150 Mg Tablet, 150 MG PO DAILY, (Reported) Past Iiabdpp-Tzugtp-Zfusqc Hx Patient Social History Alcohol Use: Denies Use Recreational Drug Use: No Smoking Status: Never a Smoker Recent Foreign Travel: No Contact w/Someone Who Travel: No Recent Infectious Disease Expo: No Recent Hopitalizations: No Immunizations Up To Date Tetanus Booster (TDap): Unknown Date of Pneumonia Vaccine: Jul 20, 2011 Date of Influenza Vaccine: Apr 22, 2016 Seasonal Allergies Seasonal Allergies: No Surgeries History of Surgeries: Yes (GASTRIC BYPASS) Surgeries: Section, Hysterectomy Respiratory History of Respiratory Disorde: No Currently Using CPAP: No Currently Using BIPAP: No Cardiovascular History of Cardiac Disorders: Yes (pacemaker) Cardiac Disorders: Hypertension Neurological History of Neurological Disord: Yes Neurological Disorders: Seizure Disorder Reproductive System Hx Reproductive Disorders: No Sexually Transmitted Disease: No HIV/AIDS: 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 Genitourinary History of Genitourinary Disor: No Gastrointestinal History of Gastrointestinal Di: No Musculoskeletal History of Musculoskeletal Dis: No Endocrine History of Endocrine Disorders: Yes HEENT History of HEENT Disorders: Yes HEENT Disorders: Cataract Cancer History of Cancer: No Psychosocial History of Psychiatric Problem: Yes Behavioral Health Disorders: Anxiety Integumentary History of Skin or Integumenta: No Blood Transfusions History of Blood Disorders: No Family Medical History Family Medial History: Cardiovascular disease Completed stroke Hypertension Seizure disorder No Family History of: AIDS Abdominal aortic aneurysm Attapulgus's disease Alcoholism Alzheimer's disease Aphasia Arthritis Asthma Cancer of mouth Cataracts Colon cancer Congenital disease Congenital heart disease Coronary thrombosis Cystic fibrosis Deafness or hearing loss Dementia Diabetes mellitus Drug abuse Dysphasia Fibrocystic disease of breast Gastroenteritis Glaucoma Headache disorder Hypercholesterolemia Infertility Kidney disease Myocardial infarction Neoplasm Not obtainable due to adoption Osteoporosis Parkinson's disease Prostate cancer Psychosocial problem Respiratory disorder Severe allergy Thyroid disease Tuberculosis Visual disorder Review of Systems Time Seen by Provider: 06:47 Exam Exam Vital Signs Date Time Temp Pulse Resp B/P (MAP) Pulse Ox O2 Delivery O2 Flow Rate FiO2 08/03/17 04:00 73 8 91/80 (84) 97 Mechanical Ventilator 40.00 08/03/17 03:35 81 20 98 50 08/03/17 03:00 72 8 101/63 (76) 97 Mechanical Ventilator 50.00 08/03/17 02:00 97.8 76 20 102/55 (71) 96 Mechanical Ventilator 50.00 08/03/17 01:30 92 23 96 50 08/03/17 01:00 114 08/03/17 01:00 115 11 131/75 (93) 95 Mechanical Ventilator 50.00 08/03/17 00:00 93 10 151/85 (107) 98 Nasal Cannula 5.00 08/02/17 23:00 90 11 105/58 (74) 97 Nasal Cannula 5.00 08/02/17 22:00 101 26 123/71 (88) 97 Nasal Cannula 5.00 08/02/17 21:00 94 25 123/69 (87) Nasal Cannula 5.00 08/02/17 20:16 90 97 08/02/17 20:00 97.1 100 25 107/88 (94) Nasal Cannula 5.00 08/02/17 19:00 87 08/02/17 19:00 90 21 120/81 (94) 100 Nasal Cannula 5.00 08/02/17 18:00 101 13 113/95 (101) 100 Nasal Cannula 5.00 08/02/17 17:51 103 08/02/17 17:25 Nasal Cannula 4.00 08/02/17 17:17 96 12 128/82 (97) 98 Nasal Cannula 5.00 08/02/17 17:05 Nasal Cannula 5.00 08/02/17 17:05 99.1 Nasal Cannula 5.00 I & O 08/03/17 07:00 Intake Total 400 ml Output Total 630 ml Balance -230 ml General Appearance: No Apparent Distress (sedated on vent ) HEENT: Pharynx Normal Neck: Full Range of Motion Respiratory: Chest Non Tender, No Accessory Muscle Use, No Respiratory Distress , Decreased Breath Sounds Gastrointestinal: normal bowel sounds, non tender, soft, no organomegaly Neurologic/Psychiatric: Alert, Oriented x3 Skin: Normal Color, Warm/Dry Lymphatic: No Adenopathy Results Lab Laboratory Tests 08/02/17 18:10 08/02/17 23:58 08/03/17 02:05 08/03/17 04:00 Assessment/Plan Assessment/Plan Acute Respiratory failure Acute on chronic renal failure -vent dependent secondary to acute respiratory failure and seizures - Poor IV Access - I will place an urgent central line for IV Access. Pt and family told RN she wants everything done. Metabolic lactic acidosis with severe dehydration -IVF -Bicarb gtt Acute seizures -Pt was intubated last night to protect airway -Ativan PRN -Pt is on Keppra now Hypokalemia, electrolyte imbalance -replace Hx of CHF 255 Clinical Quality Measures DVT/VTE Risk/Contraindication: Risk Factor Score Per Nursin RFS Level Per Nursing on Admit: 2=Moderate RIYA DILLARD DO Aug 03, 2017 05:17
[2017-08-03] MEDS: SODIUM BICARBONATE 8.4% VIAL 150 MEQ in D5W 1000 ML IV SOLUTION 1,000 ML IV SCH ×4 (05:32→22:21)
[2017-08-03] MEDS ORDERED: LORazepam INJ 2 MG/ML (ATIVAN) VIAL IVP ONE (05:45)
[2017-08-03 05:52] LABS: ABG BASE EXCESS -0.1 MMOL/L (-2.5-2.5); ABG PCO2 39 MMHG (35-45); ABG PH 7.41 (7.37-7.43); ABG PO2 91 MMHG (79-93); ABG TCO2 25.4 MMOL/L (21.0-31.0)
[2017-08-03 05:53] LABS: ABG OXYGEN SATURATION 94 % (94-100); ALLENS TEST YES-POS; INSPIRED O2 30%; PATIENT TEMP 96.9; VENTILATOR YES
--- NOTE | 2017-08-03 06:41 | Pulmonary Procedures ---
Pulmonary Procedures Date of Procedure Date of Service: Aug 03, 2017 Lumen: triple (US guided) Central Line Procedure: betadine prep, sterile drapes applied, sterile dressing applied Position: internal jugular (R) Anesthesia: Lidocaine (Pt also on diprivan gtt and was given 2mg of Ativan. ) Volume Anesthetic (ccs): 5 Complications: none Post Position: sutured, good blood return, position confirmed w/ CXR RIYA DILLARD DO Aug 03, 2017 06:41
[2017-08-03] MEDS ORDERED: NS IV 1000 ML 1,000 ML IV SCH ×2 (06:45→08:45)
[2017-08-03] MEDS: POTASSIUM CL 10 MEQ/50 ML IVPB (PRE-MIX) IV SCH ×6 (06:55→13:51)
[2017-08-03] MEDS ORDERED: RT-ALBUTEROL/IPRATROPIUM 3 ML (DUONEB) VIAL INH SCH (07:00)
--- NOTE | 2017-08-03 07:03 | Diagnostic Imaging Report ---
PROCEDURE: CT head without contrast. TECHNIQUE: Multiple contiguous axial images were obtained through the brain without the use of intravenous contrast. INDICATION: New onset seizure. Exam compared with study 02/25/2014. FINDINGS: Left posterior parietal cortical encephalomalacia is an unchanged finding from 2014. No new site of abnormal parenchymal density. No focal edema. There is no hemorrhage. There is no hydrocephalus. There is no mass effect. The basilar cisterns patent. IMPRESSION: Chronic area of parietal cortical encephalomalacia stable. No acute appearing pathology or change demonstrated. Dictated by: Dictated on workstation # [id number]
--- NOTE | 2017-08-03 07:38 | Diagnostic Imaging Report ---
INDICATION: Central line placement COMPARISON STUDY: Chest from July at 1:08 AM FINDINGS: Portable view of the chest demonstrates interval placement of a right jugular catheter with its tip near the atriocaval junction. An endotracheal tube, orogastric tube and cardiac defibrillator remain in place. Pulmonary vascularity has increased. Small bilateral pleural effusions are present. IMPRESSION: 1. Central venous catheter placed in good position 2. There has been increase of the mild pulmonary congestion. Dictated by: Dictated on workstation # [id number]
[2017-08-03] MEDS: RT-ALBUTEROL/IPRATROPIUM 3 ML (DUONEB) VIAL INH SCH ×5 (07:48→21:25)
--- NOTE | 2017-08-03 07:49 | Diagnostic Imaging Report ---
INDICATION: Central line FINDINGS: Catheter is in the stomach, ET tube mid trachea. ICD device unremarkable. Some mild perihilar infiltrates improved when compared to the study of July 17. There is likely small right pleural effusion. IMPRESSION: Probable small right pleural effusion unchanged, perihilar infiltrates decreased. ET tube in good alignment, OG in the stomach. Dictated by: Dictated on workstation # [id number]
--- NOTE | 2017-08-03 08:39 | Cardiology Progress Note ---
Subjective Date Seen by Provider: Aug 03, 2017 Time Seen by Provider: 08:34 Subjective/Events-last exam patient is sedated and intubated, unable to provide any history, appeared to have multiple seizures and electrolyte imbalance. Review of Systems General: Other (unable to provide review of systems) Objective-Cardiology Exam Last Set of Vital Signs Vital Signs 08/03/17 08/03/17 08/03/17 02:00 06:00 07:48 Temp 97.8 Pulse 71 Resp 20 B/P (MAP) 108/50 (69) Pulse Ox 98 O2 Delivery Mechanical Ventilator O2 Flow Rate 30.00 FiO2 50 Capillary Refill : I&O Intake and Output 08/03/17 00:00 Intake Total 300 ml Output Total 205 ml Balance 95 ml Intake Oral 0 ml IV Total 300 ml Output Urine Total 205 ml # Voids 1 Daily Weight Change Yes, 2-13 lbs General: Severe Distress, Other (sedated and intubated) HEENT: Atraumatic Neck: Supple, No JVD Lungs: Normal Air Movement, Other (bilateral rhonchi) Heart: Regular Rate, Normal S1, Normal S2 Abdomen: Normal Bowel Sounds Extremities: No Clubbing, No Cyanosis Skin: No Rashes Neuro: Other (sedated and intubated) Results Lab Laboratory Tests 08/02/17 18:10 08/02/17 23:58 08/03/17 02:05 08/03/17 04:00 08/03/17 06:40 A/P-Cardiology Admission Diagnosis Acute renal failure Acute respiratory failure Ventricular tachycardia Metabolic acidosis Assessment/Plan Acute renal failure with severe metabolic acidosis, being managed by ICU and Med Services Acute respiratory failure, sedated and intubated Multiple seizures. On Keppra. Sedated at this time. No evidence of any acute coronary syndrome Ventricular fibrillation arrest in 2007, details unknown, had an ICD implanted by Dr. Boyd, no recent checkup was done. Cardiac catheterization done in 2007 showed only mild coronary artery disease and normal LVEF Echo of 07/12/16: LVEF 60-70%, normal RV and LV size, conc LVH, mild diastolic dysfunction, RVSP 43 mmHg, mild to mod aortic regurg Hypertension, by history Hyperlipidemia, by history History of CVA Carotid u/s of Feb [address] [facility]: mild bilat carotid art disease Seizure disorder, history of seizure activities History of chronic anemia, probably related to CKD and gastric bypass surgery, followed and treated by Dr Kline History of hypothyroidism Clinical Quality Measures DVT/VTE Risk/Contraindication: Risk Factor Score Per Nursin RFS Level Per Nursing on Admit: 2=Moderate ABIOLA HAYNES MD Aug 03, 2017 08:39
[2017-08-03] MEDS ORDERED: LORazepam INJ 2 MG/ML (ATIVAN) VIAL IVP PRN (08:45)
[2017-08-03] MEDS: MICONAZOLE 2% POWDER (DESENEX AF) 90 GM TOP SCH ×2 (08:58→20:36)
[2017-08-03] MEDS: PROPOFOL DRIP (ICU) 100 ML IV SCH ×2 (08:59→19:30)
[2017-08-03] MEDS: ASPIRIN 81 MG CHEW (CHILDREN'S ASA) PO SCH (10:46)
[2017-08-03] MEDS: CHLORHEXIDINE 0.12% SOLN 15 ML (PERIDEX) UDC PO SCH ×2 (10:46→20:38)
--- NOTE | 2017-08-03 11:34 | History & Physical-Hospitalist ---
HPI History of Present Illness: HPI/Chief Complaint CC: Acute on chronic renal failure with electrolyte imbalance and seizure with status epilepticus HPI: This is a 76-year-old white female of Dr. Persaud at [facility] who presented as a direct admission due to acute on chronic renal failure in need of a bicarbonate drip for acidosis that also has a history of seizure disorder who presented to the ICU placed on bicarbonate drip per Dr. Worthy instructions and subsequently experienced status epilepticus and Ativan 8 mg IV had ceased to be effective so she was intubated for airway protection. At this current time she remains on the ventilator but she is stable. Her family did have her DO NOT RESUSCITATE but they change their mind and want everything done so she is now full code unsure of the recovery status of that. At this current time patient is sedated and having no seizures at this point. Date Seen 08/03/17 Time Seen by Provider: 11:00 Attending Physician Paulino Worthy DO PCP Reji Persaud DO Referring Physician Date of Admission Aug 02, 2017 at 17:15 Home Medications & Allergies Home Medications Reviewed patient Home Medication Reconciliation Form Allergies Allergies Coded Allergies No Known Drug Allergies (Unverified08/02/17) Past Apispnq-Jgiwgi-Nxnfhx Hx Patient Social History Alcohol Use: Denies Use Recreational Drug Use: No Smoking Status: Never a Smoker Physical Abuse Screen: No Sexual Abuse: No Recent Foreign Travel: No Contact w/other who traveled: No Recent Hopitalizations: No Recent Infectious Disease Expo: No Immunizations Up To Date Tetanus Booster (TDap): Unknown Date of Pneumonia Vaccine: Jul 20, 2011 Date of Influenza Vaccine: Apr 22, 2016 Seasonal Allergies Seasonal Allergies: No Surgeries Yes (GASTRIC BYPASS) Section, Hysterectomy Respiratory No Currently Using CPAP: No Currently Using BIPAP: No Cardiovascular Yes (pacemaker) Hypertension Neurological Yes Seizure Disorder Reproductive System Hx Reproductive Disorders: No Sexually Transmitted Disease: No HIV/AIDS: 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 Genitourinary No Gastrointestinal No Musculoskeletal No Endocrine History of Endocrine Disorders: Yes HEENT History of HEENT Disorders: Yes HEENT Disorders: Cataract Cancer No Psychosocial History of Psychiatric Problem: Yes Behavioral Health Disorders: Anxiety Integumentary History of Skin or Integumenta: No Blood Transfusions History of Blood Disorders: No Family Medical History Family Hx: Cardiovascular disease Completed stroke Hypertension Seizure disorder No Family History of: AIDS Abdominal aortic aneurysm Sabine's disease Alcoholism Alzheimer's disease Aphasia Arthritis Asthma Cancer of mouth Cataracts Colon cancer Congenital disease Congenital heart disease Coronary thrombosis Cystic fibrosis Deafness or hearing loss Dementia Diabetes mellitus Drug abuse Dysphasia Fibrocystic disease of breast Gastroenteritis Glaucoma Headache disorder Hypercholesterolemia Infertility Kidney disease Myocardial infarction Neoplasm Not obtainable due to adoption Osteoporosis Parkinson's disease Prostate cancer Psychosocial problem Respiratory disorder Severe allergy Thyroid disease Tuberculosis Visual disorder Review of Systems ROS-Unable to Obtain: intubated Constitutional: see HPI Physical Exam Physical Exam Vital Signs Vital Sign - Last 12Hours 08/02/17 08/03/17 17:17 01:30 Pulse 96 Resp 12 B/P (MAP) 128/82 (97) Pulse Ox 98 FiO2 50 Capillary Refill : General Appearance: No Apparent Distress, WD/WN, Chronically ill, Other ( intubated) Eyes: Bilateral Eye Normal Inspection, Bilateral Eye PERRL Respiratory: Lungs Clear, Normal Breath Sounds, No Accessory Muscle Use, No Respiratory Distress, Other (on vent) Cardiovascular: Regular Rate, Rhythm, No Edema, No Gallop, No JVD, No Murmur, Normal Peripheral Pulses Gastrointestinal: Normal Bowel Sounds, No Organomegaly, No Pulsatile Mass, Soft Extremity: Normal Capillary Refill, Normal Inspection, Normal Range of Motion, Non Tender, No Calf Tenderness, No Pedal Edema Neurologic/Psychiatric: Other (sedated) Skin: Normal Color, Warm/Dry Lymphatic: No Adenopathy Results Results/Procedures Lab Laboratory Tests 08/02/17 18:10 08/02/17 23:58 08/03/17 02:05 08/03/17 04:00 08/03/17 06:40 08/03/17 11:23 Assessment/Plan Admission Diagnosis Assessment: Acute on chronic renal failure with metabolic acidosis in need of bicarbonate drip Experience status epilepticus that required intubation History of seizure disorder History of chronic debility previously DO NOT RESUSCITATE now full code family changed their mind anemia of chronic kidney disease Hypernatremia Assessment and Plan Plan: Maintain intubation Appreciate Dr. Worthy's expertise Maintain bicarbonate drip Monitor closely Poor prognosis long-term Clinical Quality Measures DVT/VTE Risk/Contraindication: Risk Factor Score Per Nursin RFS Level Per Nursing on Admit: 2=Moderate JOHNY TRAN DO Aug 03, 2017 11:34
[2017-08-03 11:57] LABS: BILIRUBIN,TOTAL 0.6 MG/DL (0.1-1.0); CALCIUM 6.2 MG/DL (8.5-10.1); CREATININE SERUM 2.37 MG/DL (0.60-1.30); POTASSIUM 2.9 MMOL/L (3.6-5.0); TOTAL PROTEIN 4.8 GM/DL (6.4-8.2)
[2017-08-03] MEDS ORDERED: OMEP20CA12 PO (13:24)
[2017-08-03] MEDS ORDERED: PHEN30CA PO (13:24)
[2017-08-03] MEDS ORDERED: LEVO150T6 PO (13:24)
[2017-08-03] MEDS ORDERED: CALC-408 PO (14:34)
[2017-08-03 14:56] LABS: BILIRUBIN,TOTAL 0.6 MG/DL (0.1-1.0); CALCIUM 6.3 MG/DL (8.5-10.1); CREATININE SERUM 2.32 MG/DL (0.60-1.30); POTASSIUM 3.1 MMOL/L (3.6-5.0); TOTAL PROTEIN 4.8 GM/DL (6.4-8.2)
[2017-08-03] MEDS ORDERED: ASPI-983 PO (15:19)
[2017-08-03] MEDS ORDERED: CHOL10007 PO (15:19)
[2017-08-03 19:14] LABS: BILIRUBIN,TOTAL 0.6 MG/DL (0.1-1.0); CALCIUM 6.2 MG/DL (8.5-10.1); CREATININE SERUM 2.32 MG/DL (0.60-1.30); TOTAL PROTEIN 4.8 GM/DL (6.4-8.2)
[2017-08-03 22:47] LABS: ALBUMIN 2.9 GM/DL (3.2-4.5); BILIRUBIN,TOTAL 0.6 MG/DL (0.1-1.0); CALCIUM 6.2 MG/DL (8.5-10.1); CREATININE SERUM 2.29 MG/DL (0.60-1.30); TOTAL PROTEIN 4.7 GM/DL (6.4-8.2)
[2017-08-04] VITALS (30 sets, daily range): BP systolic 102–146; BP diastolic 53–82
[2017-08-04] MEDS: MAGNESIUM 1 GM/100 ML IVPB 100 ML IV SCH ×5 (00:36→05:17)
[2017-08-04] MEDS: POTASSIUM CL 10MEQ/50ML IVPB 50 ML IV SCH ×6 (01:13→05:17)
[2017-08-04] MEDS: RT-ALBUTEROL/IPRATROPIUM 3 ML (DUONEB) VIAL INH SCH ×6 (01:27→23:03)
[2017-08-04] MEDS: PANTOPRAZOLE 40 MG/10 ML (PROTONIX) VIAL IV SCH ×2 (02:21→14:00)
[2017-08-04] MEDS: D5W IV SCH ×2 (03:14)
[2017-08-04] MEDS: cefTRIAXone 2 GM/NS 50 ML IVPB IV SCH ×2 (03:14)
[2017-08-04] MEDS: CEFTRIAXONE IV SCH ×2 (03:14)
[2017-08-04] MEDS: NS IV SCH ×2 (03:43)
[2017-08-04] MEDS: LEVETIRACETAM IV SCH ×2 (03:43)
[2017-08-04] MEDS: PROPOFOL DRIP (ICU) 100 ML IV SCH (04:00)
[2017-08-04 04:21] LABS: BASOPHILS % (AUTO) 0 % (0-10); EOSINOPHILS # (AUTO) 0.1 10^3/uL (0.0-0.3); EOSINOPHILS % (AUTO) 1 % (0-10); HEMATOCRIT 24 % (35-52); HEMOGLOBIN 8.1 G/DL (11.5-16.0); LYMPHOCYTES # (AUTO) 1.2 X 10^3 (1.0-4.0); LYMPHOCYTES % (AUTO) 11 % (12-44); MEAN CORPUSCULAR HEMOGLOBIN 32 PG (25-34); MEAN CORPUSCULAR HGB CONC 34 G/DL (32-36); MEAN CORPUSCULAR VOLUME 95 FL (80-99); MEAN PLATELET VOLUME 13.3 FL (7.4-10.4); MONOCYTES % (AUTO) 10 % (0-12); NEUTROPHILS # (AUTO) 8.5 X 10^3 (1.8-7.8); NEUTROPHILS % (AUTO) 78 % (42-75); PLATELET COUNT 136 10^3/uL (130-400); RED BLOOD COUNT 2.53 10^6/uL (4.35-5.85); RED CELL DISTRIBUTION WIDTH 15.5 % (10.0-14.5); WHITE BLOOD COUNT 10.9 10^3/uL (4.3-11.0)
[2017-08-04] MEDS: SODIUM BICARBONATE 8.4% VIAL 150 MEQ in D5W 1000 ML IV SOLUTION 1,000 ML IV SCH (04:39)
[2017-08-04 04:50] LABS: ALBUMIN 2.9 GM/DL (3.2-4.5); BILIRUBIN,TOTAL 0.6 MG/DL (0.1-1.0); CALCIUM 6.1 MG/DL (8.5-10.1); CREATININE SERUM 2.33 MG/DL (0.60-1.30); MAGNESIUM 2.6 MG/DL (1.8-2.4); PHOSPHORUS 1.6 MG/DL (2.3-4.7); POTASSIUM 3.8 MMOL/L (3.6-5.0); TOTAL PROTEIN 4.9 GM/DL (6.4-8.2)
[2017-08-04 05:08] LABS: ABG BASE EXCESS 9.8 MMOL/L (-2.5-2.5); ABG OXYGEN SATURATION 82 % (94-100); ABG PCO2 42 MMHG (35-45); ABG PH 7.51 (7.37-7.43); ABG PO2 48 MMHG (79-93); ABG TCO2 34.8 MMOL/L (21.0-31.0)
[2017-08-04 05:10] LABS: ALLENS TEST YES-POS; INSPIRED O2 25%; PATIENT TEMP 98.6; VENTILATOR YES
[2017-08-04] MEDS: KCL 20 MEQ TAB (K-DUR) PO SCH (05:17)
[2017-08-04] MEDS: inSUlin (REGULAR) HUMAN 1 UNIT/0.01 ML (CHARGE PER UNIT) SC SCH ×3 (05:37→18:00)
[2017-08-04] MEDS ORDERED: POTASSIUM PHOSPHATE INJ 15 MM in NS (IVPB) 250 ML IV ONE (06:00)
--- NOTE | 2017-08-04 06:03 | Pulmonary Progress Note ---
Subjective Time Seen by Provider: 05:59 Subjective/Events-last exam PT appears to be stable on vent. Exam Exam Vital Signs Date Time Temp Pulse Resp B/P (MAP) Pulse Ox O2 Delivery O2 Flow Rate FiO2 08/04/17 04:57 96 19 93 25 08/04/17 04:54 92 20 97 25 08/04/17 04:36 99 24 99 35 08/04/17 04:00 92 8 107/57 (74) 95 Mechanical Ventilator 25.00 08/04/17 04:00 98.6 93 12 109/71 Mechanical Ventilator 08/04/17 03:37 105 20 85 25 08/04/17 03:00 98 9 102/56 (71) 96 Mechanical Ventilator 25.00 08/04/17 02:00 110 10 103/57 (72) 95 Mechanical Ventilator 25.00 08/04/17 01:27 94 20 94 25 08/04/17 01:00 110 08/04/17 01:00 110 10 108/63 (78) 95 Mechanical Ventilator 25.00 08/04/17 00:04 125 20 92 25 08/04/17 00:00 Mechanical Ventilator 25 08/04/17 00:00 112 15 124/65 (84) 93 Mechanical Ventilator 25.00 08/03/17 23:00 118 20 100/51 (67) 93 Mechanical Ventilator 25.00 08/03/17 22:00 110 19 111/55 (73) 93 Mechanical Ventilator 25.00 18 21:21 100 20 94 25 08/03/17 21:00 100 19 102/49 (66) 94 Mechanical Ventilator 25.00 08/03/17 20:00 98.0 08/03/17 20:00 Mechanical Ventilator 25 08/03/17 20:00 100 10 102/49 (66) 94 Mechanical Ventilator 25.00 08/03/17 19:30 98.0 124 104/50 Mechanical Ventilator 08/03/17 19:00 120 13 105/52 (69) 93 Mechanical Ventilator 25.00 08/03/17 19:00 120 18 18:43 122 20 98 25 08/03/17 18:00 103 13 106/49 (68) 94 Mechanical Ventilator 25.00 08/03/17 17:00 98 10 92/48 (63) 95 Mechanical Ventilator 25.00 08/03/17 16:00 Mechanical Ventilator 25 08/03/17 16:00 98.5 Mechanical Ventilator 25.00 08/03/17 16:00 103 10 99/51 (67) 95 Mechanical Ventilator 25.00 08/03/17 15:14 104 20 94 25 08/03/17 15:00 102 20 99/51 (67) 94 Mechanical Ventilator 25.00 08/03/17 14:00 106 19 110/54 (72) 92 Mechanical Ventilator 25.00 08/03/17 13:39 92 20 97 25 08/03/17 13:00 81 08/03/17 13:00 81 19 93/72 (79) 96 Mechanical Ventilator 25.00 08/03/17 12:00 Mechanical Ventilator 30 08/03/17 12:00 98.0 Mechanical Ventilator 25.00 08/03/17 12:00 80 84/53 (63) 97 Mechanical Ventilator 25.00 08/03/17 11:00 89 13 92/49 (63) 96 Mechanical Ventilator 25.00 08/03/17 10:39 76 20 98 25 08/03/17 10:00 69 11 92/46 (61) 99 Mechanical Ventilator 30.00 08/03/17 09:00 65 18 101/62 (75) 100 Mechanical Ventilator 30.00 08/03/17 08:00 97.2 Mechanical Ventilator 30.00 08/03/17 08:00 Mechanical Ventilator 30 08/03/17 08:00 68 10 95/89 (91) 98 Mechanical Ventilator 30.00 08/03/17 07:48 71 20 98 50 08/03/17 07:00 73 15 110/93 (99) 98 Mechanical Ventilator 30.00 08/03/17 07:00 72 08/03/17 06:58 71 08/03/17 06:00 87 12 108/50 (69) 97 Mechanical Ventilator 30.00 I & O 08/04/17 07:00 Intake Total 2350 ml Output Total 1200 ml Balance 1150 ml General Appearance: No Apparent Distress, WD/WN, Chronically ill, Other ( intubated) HEENT: Pharynx Normal Neck: Full Range of Motion Respiratory: Lungs Clear, Normal Breath Sounds, No Accessory Muscle Use, No Respiratory Distress, Other (on vent) Cardiovascular: Regular Rate, Rhythm, No Edema, No Gallop, No JVD, No Murmur, Normal Peripheral Pulses Gastrointestinal: normal bowel sounds, non tender, soft, no organomegaly Extremity: Normal Capillary Refill, Normal Inspection, Normal Range of Motion, Non Tender, No Calf Tenderness, No Pedal Edema Neurologic/Psychiatric: Other (sedated) Skin: Normal Color, Warm/Dry Lymphatic: No Adenopathy Results Lab Laboratory Tests 08/02/17 18:10 08/02/17 23:58 08/03/17 02:05 08/03/17 04:00 08/03/17 06:40 08/03/17 11:23 08/03/17 14:10 08/03/17 18:30 08/03/17 21:50 08/04/17 04:15 Assessment/Plan Assessment/Plan Acute Respiratory failure Acute on chronic renal failure -will wake pt up and start weaning vent Metabolic lactic acidosis with severe dehydration -IVF will change to D5W -Bicarb gtt -- D/C Acute seizures -Pt was intubated last night to protect airway -Ativan PRN -Pt is on Keppra now Hypokalemia, electrolyte imbalance -replace Hx of CHF 233 Clinical Quality Measures DVT/VTE Risk/Contraindication: Risk Factor Score Per Nursin RFS Level Per Nursing on Admit: 2=Moderate RIYA DILLARD DO Aug 04, 2017 06:03
[2017-08-04 06:08] LABS: ABG BASE EXCESS 10.5 MMOL/L (-2.5-2.5); ABG PCO2 41 MMHG (35-45); ABG PH 7.53 (7.37-7.43); ABG PO2 64 MMHG (79-93); ABG TCO2 35.2 MMOL/L (21.0-31.0)
[2017-08-04 06:09] LABS: ABG OXYGEN SATURATION 90 % (94-100); ALLENS TEST YES-POS; INSPIRED O2 25%; PATIENT TEMP 98.7; VENTILATOR YES
[2017-08-04] MEDS ORDERED: D5 NS 1000 ML IV SOLUTION 0 ML IV ONE (06:38)
[2017-08-04] MEDS: CATHETER FLUSH 10 ML SYR IV SCH ×3 (06:48→22:03)
[2017-08-04] MEDS: D5W 1000 ML IV SOLUTION 1,000 ML IV SCH ×2 (06:48→16:15)
--- NOTE | 2017-08-04 08:17 | Cardiology Progress Note ---
Subjective Date Seen by Provider: Aug 04, 2017 Time Seen by Provider: 08:13 Subjective/Events-last exam Patient is in bed, just got extubated, lethargic and tiered Review of Systems General: Malaise, Other (unable to provide ROS) Pulmonary: Dyspnea Objective-Cardiology Exam Last Set of Vital Signs Vital Signs 08/04/17 08/04/17 08/04/17 04:00 06:00 07:33 Temp 98.7 Pulse 107 Resp 26 B/P (MAP) 144/78 (100) Pulse Ox 94 O2 Delivery Mechanical Ventilator O2 Flow Rate 25.00 FiO2 25 Capillary Refill : I&O Intake and Output 08/04/17 00:00 Intake Total 3805 ml Output Total 1925 ml Balance 1880 ml Intake Oral 0 ml IV Total 3805 ml Output Urine Total 1925 ml General: Alert, Moderate Distress, Other (confused) HEENT: Atraumatic Neck: Supple, No JVD Lungs: Normal Air Movement, Other (bilateral rhonchi) Heart: Regular Rate, Normal S1, Normal S2 Abdomen: Normal Bowel Sounds Extremities: No Clubbing, No Cyanosis Skin: No Rashes Neuro: Other (lethargic and confused) Results Lab Laboratory Tests 08/03/17 11:23 08/03/17 14:10 08/03/17 18:30 08/03/17 21:50 08/04/17 04:15 A/P-Cardiology Admission Diagnosis Acute renal failure Acute respiratory failure Ventricular tachycardia Metabolic acidosis Assessment/Plan Acute renal failure with metabolic acidosis, being managed by ICU and Med Services, improving Acute respiratory failure, patient got extubated today, still confused and lethargic Multiple seizures, history of seizure in the past, On Keppra, continue to monitor No evidence of any acute coronary syndrome History of Ventricular fibrillation and arrest in 2007, details unknown, had an ICD implanted by Dr. Boyd, no recent checkup was done. Cardiac catheterization done in 2007 showed only mild coronary artery disease and normal LVEF Echo of 07/12/16: LVEF 60-70%, normal RV and LV size, conc LVH, mild diastolic dysfunction, RVSP 43 mmHg, mild to mod aortic regurg Hypertension, monitor blood pressure Hyperlipidemia, continue to monitor lipids History of CVA Carotid u/s of Feb [address] [facility]: mild bilat carotid art disease History of chronic anemia, probably related to CKD and gastric bypass surgery, followed and treated by Dr Kline History of hypothyroidism Clinical Quality Measures DVT/VTE Risk/Contraindication: Risk Factor Score Per Nursin RFS Level Per Nursing on Admit: 2=Moderate ABIOLA HAYNES MD Aug 04, 2017 08:17
--- NOTE | 2017-08-04 08:42 | Diagnostic Imaging Report ---
INDICATION: Acute renal failure. Mechanical ventilation. TECHNIQUE: Single view chest at 4:15 AM. CORRELATIVE STUDY: 08/03/2017. FINDINGS: The endotracheal tube is superimposed over the low trachea just above the yao. The gastric tube passes below the left diaphragm. The right IJ line is largely obscured by the pacemaker but appears to be over the low SVC. The heart size and mediastinum are stable. The vasculature remains prominent. Areas of atelectasis or infiltrate in the perihilar regions as well as left upper lung field appear somewhat more prominent. Probable small effusions. IMPRESSION: 1. Stable support lines and tubes. The ET tube is slightly low in its position. 2. Vascular congestion. Areas of atelectasis, edema, and/or infiltrate appear slightly more prominent in the perihilar and left upper lung regions. Dictated by: Dictated on workstation # [id number]
[2017-08-04] MEDS: ASPIRIN 81 MG CHEW (CHILDREN'S ASA) PO SCH (09:00)
[2017-08-04] MEDS: MICONAZOLE 2% POWDER (DESENEX AF) 90 GM TOP SCH ×2 (09:52→20:01)
--- NOTE | 2017-08-04 11:15 | Progress Note-Hospitalist ---
Progress Note HPI/CC on Admission CC: Acute on chronic renal failure with electrolyte imbalance and seizure with status epilepticus HPI: This is a 76-year-old white female of Dr. Persaud at [facility] who presented as a direct admission due to acute on chronic renal failure in need of a bicarbonate drip for acidosis that also has a history of seizure disorder who presented to the ICU placed on bicarbonate drip per Dr. Worthy instructions and subsequently experienced status epilepticus and Ativan 8 mg IV had ceased to be effective so she was intubated for airway protection. At this current time she remains on the ventilator but she is stable. Her family did have her DO NOT RESUSCITATE but they change their mind and want everything done so she is now full code unsure of the recovery status of that. At this current time patient is sedated and having no seizures at this point. Progress Notes/Assess & Plan Date Seen 08/04/17 Time Seen by Provider: 11:00 Admission Dx/Process Assessment: Acute on chronic renal failure with metabolic acidosis in need of bicarbonate drip Experience status epilepticus that required intubation History of seizure disorder History of chronic debility previously DO NOT RESUSCITATE now full code family changed their mind anemia of chronic kidney disease Hypernatremia Diagonsis/Assessment & Plan Patient was asked to bed without difficulty today Patient appears to be very chronically debilitated and really needs DO NOT RESUSCITATE and end-of-life care because she doesn't even have a deep cough reflex to clear her upper respiratory secretions Creatinine improved to 2.33 Overall no issues and no pain reported No fever, vital signs stable, chronically debilitated, drowsy, and life status appearance RRR, upper airway coarseness No edema Laboratory Tests 08/03/17 11:23 08/03/17 14:10 08/03/17 18:30 08/03/17 21:50 08/04/17 04:15 Assessment: Acute on chronic renal failure with metabolic acidosis s/p bicarbonate drip Experience status epilepticus that required intubation now extubated History of seizure disorder History of chronic debility previously DO NOT RESUSCITATE now full code family changed their mind Anemia of chronic kidney disease Hypernatremia improved Plan: Appreciate Dr. Worthy's expertise Maintain bicarbonate drip Monitor closely Poor prognosis long-term Needs DNR poor prognosis JOHNY TRAN DO Aug 04, 2017 11:15
[2017-08-04] MEDS ORDERED: DEXTROSE 50% 50 ML (IMS) SYR ONE (18:22)
[2017-08-04] MEDS ORDERED: DEXTROSE 50% 50 ML (IMS) SYR IV NR (18:30)
[2017-08-05] VITALS (17 sets, daily range): BP systolic 94–137; BP diastolic 54–97
[2017-08-05] MEDS: inSUlin (REGULAR) HUMAN 1 UNIT/0.01 ML (CHARGE PER UNIT) SC SCH ×4 (01:24→19:09)
[2017-08-05] MEDS: RT-ALBUTEROL/IPRATROPIUM 3 ML (DUONEB) VIAL INH SCH ×6 (02:23→22:36)
[2017-08-05] MEDS: PANTOPRAZOLE 40 MG/10 ML (PROTONIX) VIAL IV SCH ×2 (02:48→15:39)
[2017-08-05] MEDS: D5W IV SCH ×4 (02:49)
[2017-08-05] MEDS: D5W 1000 ML IV SOLUTION 1,000 ML IV SCH ×3 (02:49→18:52)
[2017-08-05] MEDS: LEVETIRACETAM IV SCH ×2 (02:49)
[2017-08-05] MEDS: CEFTRIAXONE IV SCH ×2 (02:49)
[2017-08-05 04:11] LABS: BASOPHILS % (AUTO) 0 % (0-10); EOSINOPHILS # (AUTO) 0.2 10^3/uL (0.0-0.3); EOSINOPHILS % (AUTO) 2 % (0-10); HEMATOCRIT 26 % (35-52); HEMOGLOBIN 8.5 G/DL (11.5-16.0); LYMPHOCYTES # (AUTO) 1.1 X 10^3 (1.0-4.0); LYMPHOCYTES % (AUTO) 11 % (12-44); MEAN CORPUSCULAR HEMOGLOBIN 32 PG (25-34); MEAN CORPUSCULAR HGB CONC 32 G/DL (32-36); MEAN CORPUSCULAR VOLUME 99 FL (80-99); MEAN PLATELET VOLUME 13.7 FL (7.4-10.4); MONOCYTES # (AUTO) 0.7 X 10^3 (0.0-1.0); MONOCYTES % (AUTO) 7 % (0-12); NEUTROPHILS # (AUTO) 7.8 X 10^3 (1.8-7.8); NEUTROPHILS % (AUTO) 80 % (42-75); PLATELET COUNT 119 10^3/uL (130-400); RED BLOOD COUNT 2.68 10^6/uL (4.35-5.85); RED CELL DISTRIBUTION WIDTH 16.5 % (10.0-14.5); WHITE BLOOD COUNT 9.8 10^3/uL (4.3-11.0)
[2017-08-05 05:04] LABS: CALCIUM 6.7 MG/DL (8.5-10.1); CREATININE SERUM 2.1 MG/DL (0.60-1.30); PHOSPHORUS 3.3 MG/DL (2.3-4.7); POTASSIUM 3.8 MMOL/L (3.6-5.0)
[2017-08-05] MEDS: CATHETER FLUSH 10 ML SYR IV SCH ×3 (05:49→20:55)
[2017-08-05] MEDS: MAGNESIUM 1 GM/100 ML IVPB 100 ML IV SCH (05:50)
[2017-08-05] MEDS: POTASSIUM CL 10MEQ/50ML IVPB 50 ML IV SCH (05:50)
[2017-08-05] MEDS: KCL 20 MEQ TAB (K-DUR) PO SCH (07:37)
--- NOTE | 2017-08-05 07:55 | Diagnostic Imaging Report ---
INDICATION: Acute renal failure. Comparison made with prior examination from 08/04/2017. FINDINGS: The ET and NG tubes have been removed. There is and cardiomegaly and central pulmonary venous congestion. There is bibasilar subsegmental atelectasis and/or pneumonitis. There is no pleural effusion or pneumothorax. Pacemaker overlies left hemithorax. IMPRESSION: Cardiomegaly and moderate cardiopulmonary venous congestion with some bibasilar subsegmental atelectasis and/or pneumonitis. Interval extubation. Dictated by: Dictated on workstation # [id number]
[2017-08-05] MEDS: ASPIRIN 81 MG CHEW (CHILDREN'S ASA) PO SCH (08:16)
[2017-08-05] MEDS: MICONAZOLE 2% POWDER (DESENEX AF) 90 GM TOP SCH ×2 (08:20→20:55)
--- NOTE | 2017-08-05 09:23 | Progress Note-Hospitalist ---
Subjective HPI/CC On Admission Date Seen by Provider: Aug 05, 2017 Time Seen by Provider: 07:30 CC: Acute on chronic renal failure with electrolyte imbalance and seizure with status epilepticus HPI: This is a 76-year-old white female of Dr. Persaud at [facility] who presented as a direct admission due to acute on chronic renal failure in need of a bicarbonate drip for acidosis that also has a history of seizure disorder who presented to the ICU placed on bicarbonate drip per Dr. Worthy instructions and subsequently experienced status epilepticus and Ativan 8 mg IV had ceased to be effective so she was intubated for airway protection. At this current time she remains on the ventilator but she is stable. Her family did have her DO NOT RESUSCITATE but they change their mind and want everything done so she is now full code unsure of the recovery status of that. At this current time patient is sedated and having no seizures at this point. Subjective/Events-last exam reports feeling much better. Eating breakfast. States last BM yesterday. No other complaints or concerns. Objective Exam Vital Signs Vital Sign - Last 12Hours 08/02/17 08/03/17 17:17 01:30 Pulse 96 Resp 12 B/P (MAP) 128/82 (97) Pulse Ox 98 FiO2 50 Capillary Refill : General Appearance: No Apparent Distress, WD/WN Respiratory: Lungs Clear, Normal Breath Sounds Cardiovascular: Regular Rate, Rhythm, No JVD Gastrointestinal: Normal Bowel Sounds, Non Tender, Soft Extremity: No Pedal Edema Neurologic/Psychiatric: Alert, Oriented x3 Results/Procedures Lab Laboratory Tests 08/05/17 03:32 Assessment/Plan Assessment and Plan Assess & Plan/Chief Complaint Acute renal failure Diagnosis/Problems Diagnosis/Problems (1) Acute renal failure (ARF) Assessment & Plan: Improving, creatinine Likely getting near her baseline Off bicarb gtt Continue to trend (2) Seizure disorder Status: Acute Assessment & Plan: Continue on keppra (3) Respiratory distress Status: Acute Assessment & Plan: now extubated Remains on oxygen though minimal amount Transfer to floor (4) Normocytic anemia Status: Acute Assessment & Plan: Has trended down Will check iron levels Likely due to chronic disease though ROSARIO ESCOBAR MD Aug 05, 2017 09:23
--- NOTE | 2017-08-05 19:09 | Progress Note-Cardiology ---
Cardiology SOAP Progress Note Subjective: Notes malaise and weakness and some shortness of breath No cp or palp or syncope Better than at time of admission Objective: I&O/Vital Signs Vital Sign - Last 12Hours 08/05/17 08/05/17 08/05/17 08/05/17 07:30 07:33 08:00 09:00 Temp 98.2 Pulse 112 103 Resp 12 14 B/P (MAP) 119/97 (104) 119/62 (81) Pulse Ox 95 93 O2 Delivery Nasal Cannula Nasal Cannula Nasal Cannula O2 Flow Rate 1.00 1.00 1.00 08/05/17 08/05/17 08/05/17 08/05/17 09:45 10:00 10:31 12:00 Temp 98.0 98.4 Pulse 102 100 101 Resp 14 20 20 B/P (MAP) 130/69 (89) 134/66 (88) 126/79 (95) Pulse Ox 93 92 93 92 O2 Delivery Room Air Nasal Cannula Nasal Cannula Nasal Cannula O2 Flow Rate 1.50 1.00 1.50 08/05/17 08/05/17 08/05/17 08/05/17 12:00 13:00 14:19 16:00 Temp 97.1 Pulse 89 104 Resp 20 B/P (MAP) 134/78 (96) Pulse Ox 92 88 92 O2 Delivery Nasal Cannula Nasal Cannula Nasal Cannula O2 Flow Rate 1.50 1.00 2.50 08/05/17 08/05/17 16:24 18:48 Temp 97.1 Pulse 89 104 Resp 20 B/P (MAP) 134/78 (96) Pulse Ox 93 92 O2 Delivery Nasal Cannula O2 Flow Rate 2.50 FiO2 32 Intake and Output 08/05/17 00:00 Intake Total 1255 ml Output Total 1100 ml Balance 155 ml Weight (Pounds): 129 Weight (Ounces): 1.0 Weight (Calculated Kilograms): 58.445201 Constitutional: AAO x 3, well-developed, well-nourished (Thin appearing) Respiratory: No accessory muscle use, other (Good bilat air entry; somewhat diminished at the bases) Cardiovascular: regular rate-rhythm, S1 and S2, systolic murmur (soft ALCIDES at card base) Gastrointestional: No tender, soft, No guarding, No rebound, audible bowel sounds Extremities: No clubbing, No cyanosis, No significant edema Neurologic/Psychiatric: grossly intact, power is 5/5 both on sides Skin: No rash on exposed areas, No ulcerations on exposed areas Results/Procedures: Labs Laboratory Tests 08/04/17 19:45: Glucometer 128H 08/05/17 01:23: Glucometer 134H 08/05/17 03:32: White Blood Count 9.8, Red Blood Count 2.68L, Hemoglobin 8.5L, Hematocrit 26L, Mean Corpuscular Volume 99, Mean Corpuscular Hemoglobin 32, Mean Corpuscular Hemoglobin Concent 32, Red Cell Distribution Width 16.5H, Platelet Count 119L, Mean Platelet Volume 13.7H, Neutrophils (%) (Auto) 80H, Lymphocytes (%) (Auto) 11L, Monocytes (%) (Auto) 7, Eosinophils (%) (Auto) 2, Basophils (%) (Auto) 0, Neutrophils # (Auto) 7.8, Lymphocytes # (Auto) 1.1, Monocytes # (Auto) 0.7, Eosinophils # (Auto) 0.2, Basophils # (Auto) 0.0, Sodium Level 144, Potassium Level 3.8, Chloride Level 102, Carbon Dioxide Level 27, Anion Gap 15H, Blood Urea Nitrogen 26H, Creatinine 2.10H, Estimat Glomerular Filtration Rate 23, BUN/ Creatinine Ratio 12, Glucose Level 107H, Calcium Level 6.7L, Phosphorus Level 3.3, Magnesium Level 2.0 08/05/17 12:27: Glucometer 170H 08/05/17 18:59: Microbiology 08/03/17 Blood Culture - Preliminary, Resulted No growth 08/03/17 Gram Stain - Final, Complete 08/03/17 Sputum Culture - Final, Complete Usual/normal neville isolated. Laboratory Tests 08/03/17 21:50 08/04/17 04:15 08/05/17 03:32 A/P: Assessment: Acute renal failure with severe metabolic acidosis, being managed by ICU and Med Services Ac resp failure, improved, being managed by Pulmonary and Med Services No evidence of any acute cor syndrome Ventricular fibrillation arrest in 2007, details unknown, had an ICD implanted by Dr. Boyd and ICD is followed by Dr Haynes Cardiac catheterization done in 2007 showed only mild coronary artery disease and normal LVEF Echo of 08/03/17: LVEF 55-60%, mild MR and mild AI, PASP 30 mmHg Hypertension, by history Hyperlipidemia, by history History of CVA Carotid u/s of Feb [address] Haynes's: mild bilat carotid art disease Seizure disorder, history of seizure activities History of chronic anemia, probably related to CKD and gastric bypass surgery, followed and treated by Dr Kline History of hypothyroidism Plan: * I reviewed her records and discussed her CV issues with her and her fam * Follow labs closely DANIEL ALEXANDER MD FACP FACC CCDS Aug 05, 2017 19:09
[2017-08-06] VITALS: BP 147/65
[2017-08-06] MEDS: RT-ALBUTEROL/IPRATROPIUM 3 ML (DUONEB) VIAL INH SCH ×6 (02:10→22:18)
[2017-08-06] MEDS: PANTOPRAZOLE 40 MG/10 ML (PROTONIX) VIAL IV SCH (02:10)
[2017-08-06] MEDS: LEVETIRACETAM IV SCH ×2 (02:12)
[2017-08-06] MEDS: D5W IV SCH ×4 (02:12→02:17)
[2017-08-06] MEDS: CEFTRIAXONE IV SCH ×2 (02:17)
[2017-08-06 04:05] VITALS: BP 137/73
[2017-08-06 04:57] LABS: BASOPHILS % (AUTO) 0 % (0-10); EOSINOPHILS # (AUTO) 0.6 10^3/uL (0.0-0.3); EOSINOPHILS % (AUTO) 6 % (0-10); HEMATOCRIT 27 % (35-52); HEMOGLOBIN 8.3 G/DL (11.5-16.0); LYMPHOCYTES # (AUTO) 1.2 X 10^3 (1.0-4.0); LYMPHOCYTES % (AUTO) 12 % (12-44); MEAN CORPUSCULAR HEMOGLOBIN 31 PG (25-34); MEAN CORPUSCULAR HGB CONC 31 G/DL (32-36); MEAN CORPUSCULAR VOLUME 100 FL (80-99); MEAN PLATELET VOLUME 13.4 FL (7.4-10.4); MONOCYTES # (AUTO) 0.7 X 10^3 (0.0-1.0); MONOCYTES % (AUTO) 7 % (0-12); NEUTROPHILS % (AUTO) 74 % (42-75); PLATELET COUNT 133 10^3/uL (130-400); RED BLOOD COUNT 2.65 10^6/uL (4.35-5.85); RED CELL DISTRIBUTION WIDTH 16.3 % (10.0-14.5); WHITE BLOOD COUNT 9.5 10^3/uL (4.3-11.0)
[2017-08-06 05:29] LABS: CALCIUM 7.7 MG/DL (8.5-10.1); CREATININE SERUM 2.26 MG/DL (0.60-1.30); POTASSIUM 4.2 MMOL/L (3.6-5.0)
[2017-08-06] MEDS: CATHETER FLUSH 10 ML SYR IV SCH ×3 (05:46→21:07)
[2017-08-06] MEDS: inSUlin (REGULAR) HUMAN 1 UNIT/0.01 ML (CHARGE PER UNIT) SC SCH ×4 (05:46→18:00)
[2017-08-06] MEDS: D5W 1000 ML IV SOLUTION 1,000 ML IV SCH (06:06)
[2017-08-06 08:00] VITALS: BP 147/85
[2017-08-06] MEDS: ASPIRIN 81 MG CHEW (CHILDREN'S ASA) PO SCH (09:07)
[2017-08-06] MEDS: MICONAZOLE 2% POWDER (DESENEX AF) 90 GM TOP SCH ×2 (09:08→21:07)
[2017-08-06 12:00] VITALS: BP 131/65
--- NOTE | 2017-08-06 13:55 | Progress Note-Hospitalist ---
Subjective HPI/CC On Admission Date Seen by Provider: Aug 06, 2017 Time Seen by Provider: 12:30 CC: Acute on chronic renal failure with electrolyte imbalance and seizure with status epilepticus HPI: This is a 76-year-old white female of Dr. Persaud at [facility] who presented as a direct admission due to acute on chronic renal failure in need of a bicarbonate drip for acidosis that also has a history of seizure disorder who presented to the ICU placed on bicarbonate drip per Dr. Worthy instructions and subsequently experienced status epilepticus and Ativan 8 mg IV had ceased to be effective so she was intubated for airway protection. At this current time she remains on the ventilator but she is stable. Her family did have her DO NOT RESUSCITATE but they change their mind and want everything done so she is now full code unsure of the recovery status of that. At this current time patient is sedated and having no seizures at this point. Subjective/Events-last exam Pt reports feeling well. Is unsure of where she'll go when she's discharged. Sons have considered bringing her to [place] to be closer to them. Objective Exam Vital Signs Vital Sign - Last 12Hours 08/02/17 08/03/17 17:17 01:30 Pulse 96 Resp 12 B/P (MAP) 128/82 (97) Pulse Ox 98 FiO2 50 Capillary Refill : General Appearance: No Apparent Distress, WD/WN Respiratory: Lungs Clear, No Respiratory Distress, Other (on oxygen) Cardiovascular: Regular Rate, Rhythm, No Murmur Gastrointestinal: Normal Bowel Sounds, Non Tender, Soft Neurologic/Psychiatric: Alert, Oriented x3 Results/Procedures Lab Laboratory Tests 08/06/17 04:35 Assessment/Plan Assessment and Plan Assess & Plan/Chief Complaint Acute renal failure Diagnosis/Problems Diagnosis/Problems (1) Acute renal failure (ARF) Assessment & Plan: Improving, creatinine Likely getting near her baseline Will DC fluids Has had adequate urine output Continue to monitor labs (2) Seizure disorder Status: Acute Assessment & Plan: Continue on keppra (3) Respiratory distress Status: Acute Assessment & Plan: now extubated Remains on oxygen though minimal amount Transfer to floor (4) Normocytic anemia Status: Acute Assessment & Plan: Has trended down Will check iron levels Likely due to chronic disease though ROSARIO ESCOBAR MD Aug 06, 2017 13:55
--- NOTE | 2017-08-06 14:09 | Progress Note-Cardiology ---
Cardiology SOAP Progress Note Subjective: No cp or palp or syncope Has some gen malaise that is gradually improving Objective: I&O/Vital Signs Vital Sign - Last 12Hours 08/06/17 08/06/17 08/06/17 08/06/17 02:11 04:05 07:00 07:43 Temp 97.6 Pulse 126 115 Resp 22 B/P (MAP) 137/73 (94) Pulse Ox 94 91 96 O2 Delivery Nasal Cannula Nasal Cannula Nasal Cannula O2 Flow Rate 4.00 2.50 4.00 08/06/17 08/06/17 08/06/17 08/06/17 08:00 08:23 09:40 11:16 Temp 98.8 97.6 Pulse 107 Resp 20 B/P (MAP) 147/85 (105) Pulse Ox 95 93 95 O2 Delivery Nasal Cannula Nasal Cannula Nasal Cannula O2 Flow Rate 2.50 1.50 4.00 08/06/17 13:00 Pulse 96 Intake and Output 08/06/17 00:00 Intake Total 640 ml Output Total 750 ml Balance -110 ml Weight (Pounds): 129 Weight (Ounces): 1.0 Weight (Calculated Kilograms): 58.124592 Constitutional: AAO x 3, well-developed, well-nourished (Thin appearing) Respiratory: No accessory muscle use, other (Good bilat air entry; somewhat diminished at the bases) Cardiovascular: regular rate-rhythm, S1 and S2, systolic murmur (soft ALCIDES at card base) Gastrointestional: No tender, soft, No guarding, No rebound, audible bowel sounds Extremities: No clubbing, No cyanosis, No significant edema Neurologic/Psychiatric: grossly intact, power is 5/5 both on sides Skin: No rash on exposed areas, No ulcerations on exposed areas Results/Procedures: Labs Laboratory Tests 08/05/17 18:59: Glucometer 109 08/06/17 00:21: Glucometer 127H 08/06/17 04:35: White Blood Count 9.5, Red Blood Count 2.65L, Hemoglobin 8.3L, Hematocrit 27L, Mean Corpuscular Volume 100H, Mean Corpuscular Hemoglobin 31, Mean Corpuscular Hemoglobin Concent 31L, Red Cell Distribution Width 16.3H, Platelet Count 133, Mean Platelet Volume 13.4H, Neutrophils (%) (Auto) 74, Lymphocytes (%) (Auto) 12 , Monocytes (%) (Auto) 7, Eosinophils (%) (Auto) 6, Basophils (%) (Auto) 0, Neutrophils # (Auto) 7.0, Lymphocytes # (Auto) 1.2, Monocytes # (Auto) 0.7, Eosinophils # (Auto) 0.6H, Basophils # (Auto) 0.0, Sodium Level 146H, Potassium Level 4.2, Chloride Level 105, Carbon Dioxide Level 27, Anion Gap 14, Blood Urea Nitrogen 22H, Creatinine 2.26H, Estimat Glomerular Filtration Rate 21, BUN/ Creatinine Ratio 10, Glucose Level 103, Calcium Level 7.7L 08/06/17 05:28: Glucometer 124H 08/06/17 12:04: Glucometer 105 Microbiology 08/03/17 Blood Culture - Preliminary, Resulted No growth 08/03/17 Gram Stain - Final, Complete 08/03/17 Sputum Culture - Final, Complete Usual/normal neville isolated. Laboratory Tests 08/05/17 03:32 08/06/17 04:35 A/P: Assessment: Acute renal failure with severe metabolic acidosis, being managed by ICU and Med Services Ac resp failure, improved, being managed by Pulmonary and Med Services No evidence of any acute cor syndrome Ventricular fibrillation arrest in 2007, details unknown, had an ICD implanted by Dr. Boyd and ICD is followed by Dr Haynes Cardiac catheterization done in 2007 showed only mild coronary artery disease and normal LVEF Echo of 08/03/17: LVEF 55-60%, mild MR and mild AI, PASP 30 mmHg Hypertension, by history Hyperlipidemia, by history History of CVA Carotid u/s of Feb [address] Haynes's: mild bilat carotid art disease Seizure disorder, history of seizure activities History of chronic anemia, probably related to CKD and gastric bypass surgery, followed and treated by Dr Kline History of hypothyroidism Plan: * Continue current regimen * Follow labs closely DANIEL ALEXANDER MD FACP FAC CCDS Aug 06, 2017 14:09
[2017-08-06 15:59] VITALS: BP 136/76
[2017-08-06 19:28] VITALS: BP 126/78
[2017-08-07 00:25] VITALS: BP 136/73
[2017-08-07] MEDS: inSUlin (REGULAR) HUMAN 1 UNIT/0.01 ML (CHARGE PER UNIT) SC SCH ×4 (00:30→18:00)
[2017-08-07] MEDS: RT-ALBUTEROL/IPRATROPIUM 3 ML (DUONEB) VIAL INH SCH ×3 (02:00→20:18)
[2017-08-07 04:41] VITALS: BP 124/69
[2017-08-07] MEDS: CATHETER FLUSH 10 ML SYR IV SCH ×3 (05:52→21:58)
[2017-08-07] MEDS: PANTOPRAZOLE 20 MG TABLET (PROTONIX) PO SCH (06:00)
[2017-08-07 06:22] LABS: BASOPHILS % (AUTO) 1 % (0-10); EOSINOPHILS # (AUTO) 0.8 10^3/uL (0.0-0.3); EOSINOPHILS % (AUTO) 10 % (0-10); HEMATOCRIT 26 % (35-52); LYMPHOCYTES # (AUTO) 1.1 X 10^3 (1.0-4.0); LYMPHOCYTES % (AUTO) 14 % (12-44); MEAN CORPUSCULAR HEMOGLOBIN 31 PG (25-34); MEAN CORPUSCULAR HGB CONC 31 G/DL (32-36); MEAN CORPUSCULAR VOLUME 102 FL (80-99); MEAN PLATELET VOLUME 13.2 FL (7.4-10.4); MONOCYTES # (AUTO) 0.6 X 10^3 (0.0-1.0); MONOCYTES % (AUTO) 8 % (0-12); NEUTROPHILS # (AUTO) 5.2 X 10^3 (1.8-7.8); NEUTROPHILS % (AUTO) 67 % (42-75); PLATELET COUNT 136 10^3/uL (130-400); RED BLOOD COUNT 2.56 10^6/uL (4.35-5.85); WHITE BLOOD COUNT 7.8 10^3/uL (4.3-11.0)
[2017-08-07 07:03] LABS: CALCIUM 8.1 MG/DL (8.5-10.1); CREATININE SERUM 2.21 MG/DL (0.60-1.30); POTASSIUM 3.7 MMOL/L (3.6-5.0)
[2017-08-07 08:00] VITALS: BP 137/60
--- NOTE | 2017-08-07 08:32 | Pulmonary Progress Note ---
Subjective Time Seen by Provider: 08:31 Subjective/Events-last exam pt is doing better. Exam Exam Vital Signs Date Time Temp Pulse Resp B/P (MAP) Pulse Ox O2 Delivery O2 Flow Rate FiO2 08/07/17 08:00 98.1 88 16 137/60 (85) 95 Nasal Cannula 2.50 08/07/17 07:08 Nasal Cannula 3.00 08/07/17 07:00 96 08/07/17 04:41 97.5 92 18 124/69 (87) 97 Nasal Cannula 4.00 08/07/17 01:00 99 08/07/17 00:25 98.1 103 20 136/73 (94) 97 Nasal Cannula 4.00 08/06/17 22:19 97 Nasal Cannula 3.00 08/06/17 20:00 Nasal Cannula 1.50 08/06/17 19:28 96.9 109 16 126/78 (94) 95 Nasal Cannula 4.00 08/06/17 19:00 106 08/06/17 18:50 96 Nasal Cannula 3.00 08/06/17 15:59 98.4 103 16 136/76 (96) 91 Nasal Cannula 4.00 08/06/17 15:08 95 Nasal Cannula 4.00 08/06/17 13:00 96 08/06/17 12:00 98.7 94 20 131/65 (87) 97 Nasal Cannula 4.00 08/06/17 11:16 95 Nasal Cannula 4.00 08/06/17 09:40 97.6 I & O 08/07/17 07:00 Intake Total 3252 ml Balance 3252 ml General Appearance: No Apparent Distress, WD/WN HEENT: Pharynx Normal Neck: Full Range of Motion Respiratory: Lungs Clear, No Respiratory Distress, Other (on oxygen) Cardiovascular: Regular Rate, Rhythm, No Murmur Gastrointestinal: normal bowel sounds, non tender, soft, no organomegaly Extremity: No Pedal Edema Neurologic/Psychiatric: Alert, Oriented x3 Skin: Normal Color, Warm/Dry Lymphatic: No Adenopathy Results Lab Laboratory Tests 08/06/17 04:35 08/07/17 05:50 Assessment/Plan Assessment/Plan Acute on chronic renal failure -improving Acute seizures -Ativan PRN -Keppra Hypokalemia, electrolyte imbalance -replace Hx of CHF 232 Clinical Quality Measures DVT/VTE Risk/Contraindication: Risk Factor Score Per Nursin RFS Level Per Nursing on Admit: 2=Moderate RIYA DILLARD DO Aug 07, 2017 08:32
[2017-08-07] MEDS: LEVETIRACETAM 500 MG (KEPPRA) TAB PO SCH (09:20)
[2017-08-07] MEDS: ASPIRIN 81 MG CHEW (CHILDREN'S ASA) PO SCH (09:20)
[2017-08-07] MEDS: MICONAZOLE 2% POWDER (DESENEX AF) 90 GM TOP SCH ×2 (09:24→21:57)
[2017-08-07] MEDS ORDERED: INFLUENZA TRIvalent 2017-2018 0.5 ML/45 MCG SYR IM ONE (09:26)
--- NOTE | 2017-08-07 09:32 | Cardiology Progress Note ---
Subjective Date Seen by Provider: Aug 07, 2017 Time Seen by Provider: 09:29 Subjective/Events-last exam patient is laying down in bed, feeling better. Denied any chest pain. Breathing better. Using oxygen nasal cannula Review of Systems General: No Chills, No Night Sweats, No Fatigue, No Malaise, No Appetite, No Other HEENT: No Head Aches, No Visual Changes, No Eye Pain, No Ear Pain, No Dysphasia , No Sinus Congestion, No Post Nasal Drip, No Sore Throat, No Other Pulmonary: Dyspnea, No Cough, No Pleuritic Chest Pain, No Other Cardiovascular: No: Chest Pain, Palpitations, Orthopnea, Paroxysmal Noc. Dyspnea, Edema, Lt Headedness, Other Objective-Cardiology Exam Last Set of Vital Signs Vital Signs 08/05/17 08/07/17 16:24 08:00 Temp 98.1 Pulse 88 Resp 16 B/P (MAP) 137/60 (85) Pulse Ox 95 O2 Delivery Nasal Cannula O2 Flow Rate 2.50 FiO2 32 Capillary Refill : I&O Intake and Output 08/07/17 00:00 Intake Total 3657 ml Balance 3657 ml Intake Oral 1910 ml IV Total 1747 ml # Voids 17 # Bowel Movements 3 General: Alert, Oriented X3, Cooperative, Mild Distress HEENT: Atraumatic Neck: Supple, No JVD Lungs: Clear to Auscultation, Normal Air Movement Heart: Regular Rate, Normal S1, Normal S2 Abdomen: Normal Bowel Sounds Extremities: No Clubbing, No Cyanosis Skin: No Rashes Neuro: Normal Speech, Normal Tone Results Lab Laboratory Tests 08/07/17 05:50 A/P-Cardiology Admission Diagnosis Acute renal failure Acute respiratory failure Ventricular tachycardia Metabolic acidosis Assessment/Plan Acute renal failure with metabolic acidosis, improving slowly, continue to monitor function Acute respiratory failure, extubated and doing better, significant improvement, managed by Dr Worthy Multiple seizures, history of seizure in the past, On Keppra, continue to monitor Anemia, worsening slowly, managed by primary care physician No evidence of any acute coronary syndrome History of Ventricular fibrillation and arrest in 2007, details unknown, had an ICD implanted by Dr. Boyd, no recent checkup was done. Cardiac catheterization done in 2007 showed only mild coronary artery disease and normal LVEF Echo of 07/12/16: LVEF 60-70%, normal RV and LV size, conc LVH, mild diastolic dysfunction, RVSP 43 mmHg, mild to mod aortic regurg Hypertension, monitor blood pressure Hyperlipidemia, continue to monitor lipids History of CVA Carotid u/s of Feb [address] Haynes's: mild bilat carotid art disease History of chronic anemia, probably related to CKD and gastric bypass surgery, followed and treated by Dr Kline History of hypothyroidism Clinical Quality Measures DVT/VTE Risk/Contraindication: Risk Factor Score Per Nursin RFS Level Per Nursing on Admit: 2=Moderate ABIOLA HAYNES MD Aug 07, 2017 09:32
[2017-08-07 12:00] VITALS: BP 126/65
--- NOTE | 2017-08-07 12:46 | Progress Note-Hospitalist ---
Subjective HPI/CC On Admission Date Seen by Provider: Aug 07, 2017 Time Seen by Provider: 12:15 CC: Acute on chronic renal failure with electrolyte imbalance and seizure with status epilepticus HPI: This is a 76-year-old white female of Dr. Persaud at [facility] who presented as a direct admission due to acute on chronic renal failure in need of a bicarbonate drip for acidosis that also has a history of seizure disorder who presented to the ICU placed on bicarbonate drip per Dr. Worthy instructions and subsequently experienced status epilepticus and Ativan 8 mg IV had ceased to be effective so she was intubated for airway protection. At this current time she remains on the ventilator but she is stable. Her family did have her DO NOT RESUSCITATE but they change their mind and want everything done so she is now full code unsure of the recovery status of that. At this current time patient is sedated and having no seizures at this point. Subjective/Events-last exam Pt reports doing well. Sons to look nursing homes today. No complaints. Objective Exam Vital Signs Vital Sign - Last 12Hours 08/02/17 08/03/17 17:17 01:30 Pulse 96 Resp 12 B/P (MAP) 128/82 (97) Pulse Ox 98 FiO2 50 Capillary Refill : General Appearance: No Apparent Distress, WD/WN Respiratory: Lungs Clear, No Accessory Muscle Use, No Respiratory Distress Cardiovascular: Regular Rate, Rhythm, No Murmur Gastrointestinal: Normal Bowel Sounds, Non Tender, Soft Neurologic/Psychiatric: Alert, Oriented x3 Results/Procedures Lab Laboratory Tests 08/07/17 05:50 Assessment/Plan Assessment and Plan Assess & Plan/Chief Complaint Acute renal failure Diagnosis/Problems Diagnosis/Problems (1) Acute renal failure (ARF) Assessment & Plan: Improving, creatinine Likely getting near her baseline Has had adequate urine output Continue to monitor labs (2) Seizure disorder Status: Acute Assessment & Plan: Continue on keppra (3) Respiratory distress Status: Acute Assessment & Plan: now extubated Remains on oxygen though minimal amount (4) Normocytic anemia Status: Acute Assessment & Plan: Has trended down Will check iron levels- pending Likely due to chronic disease though (5) Discharge planning issues Assessment & Plan: Sons to look at [place] Awaiting their decision ROSARIO ESCOBAR MD Aug 07, 2017 12:46
--- NOTE | 2017-08-07 12:50 | Physical Therapy Evaluation ---
PT Evaluation-General Medical Diagnosis Admission Date Aug 02, 2017 at 17:15 Medical Diagnosis: acute renal failure Onset Date: Aug 02, 2017 Therapy Diagnosis Therapy Diagnosis: debility Height/Weight Height (Feet): 5 Height (Inches): 0.00 Weight (Pounds): 130 Weight (Ounces): 5.0 Precautions Precautions/Isolations: Seizure, Fall Prevention, Standard Precautions Weight Bear Status Right Lower Extremity: Right Weight Bearing/Tolerated Left Lower Extremity: Left Weight Bearing/Tolerated Referral Physician: Emily Reason for Referral: Evaluation/Treatment Medical History Pertinent Medical History: CAD, Heart Failure, HTN, [place] Current History direct admit due to renal failure Reviewed History: Yes Social History Home: Apartment Current Living Status: Alone Prior/Core FIM Prior Level of Function Functional [place] Measure 0=Not Assessed/NA 4=Minimal Assistance 1=Total Assistance 5=Supervision or Setup 2=Maximal Assistance 6=Modified [place] 3=Moderate Assistance 7=Complete [place] Bed Mobility: 6 Transfers (B,C,W/C) (FIM): 6 Gait: 6 PT Evaluation-Current Subjective Patient agrees to PT. No c/o. Pain Numeric Pain Scale: 0-No Pain Location: No Pain Reported Objective Patient Orientation: Normal For Age Problem Solving: Good Attachments: Oxygen (4L) ROM/Strength ROM Lower Extremities bilateral LE WNL ( noted leg length left LE) Strength Lower Extremities right knee flexion/extension 4/5; hip flexion 4/5 left knee flexion/extension 4/5; hip flexion 4/5 Integumentary/Posture Integumentary refer to nursing notes Bowel Incontinence: No Bladder Incontinence: No Posture WNL Neuromuscular (Tone, Coordination, Reflexes) grossly intact Sensory Vision: Wears Glasses Hearing: Functional Sensation Right Lower Extremit: Intact Sensation Left Lower Extremity: Intact Transfers Functional [place] Measure 0=Not Assessed/NA 4=Minimal Assistance 1=Total Assistance 5=Supervision or Setup 2=Maximal Assistance 6=Modified [place] 3=Moderate Assistance 7=Complete [place] Transfers (B, C, W/C) (FIM): 6 Scootin Rollin Supine to/from Sit: 6 Sit to/from Stand: 6 Gait Mode of Locomotion: Walk Anticipated Mode of Locomotion: Walk Gait (FIM): 6 Distance (FIM): 3=150 ft Distance: 250' Gait Level of Assist: 6 Gait Assistive Device: FWW Comments/Gait Description slow, 2 standing recovery periods due to SOA with O2 4L NC in place Balance Sitting Static: Normal Sitting Dynamic: Normal Standing Static: Normal Standing Dynamic: Normal Assessment/Needs 76 y.o. female, will benefit from skilled PT to address functional mobility to improve current LOF. Patient will transfer to [place] with family for continued care upon dismissal from hospital. Rehab Potential: Fair PT Alf Goals Alf Goals PT Alf Goals Time Frame: Aug 11, 2017 Transfers (B,C,W/C) (FIM): 6 Gait (FIM): 6 Gait distance (FIM): 3=150 ft Gait Level of Assist: 6 Gait Assistive Device: FWW PT Plan Problem List Problem List: Activity Tolerance Treatment/Plan Treatment Plan: Continue Plan of Care Treatment Plan: Education, Functional Activity Brandy, Functional Strength, Gait , Therapeutic Exercise Treatment Duration: Aug 11, 2017 Frequency: 5 times per week Estimated Hrs Per Day: .25 hour per day Patient and/or Family Agrees t: Yes Discharge Recommendations Therapy D/C Recommendations: [facility] (TCU/NH) Time/GCodes Time In: 1215 Time Out: 1234 Total Billed Treatment Time: 19 Total Billed Treatment 1 visit EVModC 19 min MITESH FRANK PT Aug 07, 2017 12:50
--- NOTE | 2017-08-07 14:14 | Occupational Therapy Eval ---
OT Evaluation-General/PLF Medical Diagnosis Admission Date Aug 02, 2017 at 17:15 Medical Diagnosis: acute renal failure Onset Date: Aug 02, 2017 Therapy Diagnosis Therapy Diagnosis: decr self care, decr act tolerance, weakness Height/Weight Height (Feet): 5 Height (Inches): 0.00 Weight (Pounds): 130 Weight (Ounces): 5.0 Precautions Precautions/Isolations: Seizure, Fall Prevention, Standard Precautions Safety Interventions: Bed Exit Alarm, Reorient-Attempt, Reorient-PRN Referral Physician: Emily Referral Reason: Evaluation/Treatment Medical History Pertinent Medical History: CAD, CVA, Heart Failure, HTN, Hypothroidism, [place] Additional Medical History V fib arrest in 2007, with ICD, pacemaker, seizure disorder. Chronic edema. gastric bypass surgery. Anxiety. Current History Pt admitted through [place] ED. Son reported she had quit taking her meds for three weeks and her kidneys failed. She developed acute respiratory failure and was sedated and intubated. She also had a couple seizures while in ICU. She is now extubated and on the medical floor. Reviewed History: Yes Social History Home: Apartment Current Living Status: Alone ADL-Prior Level of Function ADL PLOF Comments Pt reported thst she was previously able to manage all of her basic self care needs. She did report that she only takes sponge baths because she cannot lift her L leg into the bathtub due to an old injury and ROSY. She uses a Rollator. She has never driven and has an aide for about 10 hours a week that takes her shopping. She lives in [facility] Self: No OT Current Status Subjective Pt seen in room, up in recliner, agreeable to OT. pt reported she was not in any pain. Appearance Alert, cooperative Mental Status/Objective Patient Orientation: Person, Place, Time, Situation Attachments: Oxygen, Saline Lock, Telemetry Current Glasses/Contacts: Yes Hearing Aids: No Dentures/Partials: Yes (doesn't wear them) Hand Dominance: Right Upper Extremity ROM Grossly WFL bilat Upper Extremity Sensation No problems, per patient report Upper Extremity Strength Grossly 4/5 bilat ADL-Treatment ADL-Current Pt was able to walk 250 feet with FWW with mod I with PT today. She reported that she has been going to the bathroom but calling for help. She also reports no problems with opening her food, cutting it and feeding herself. She was able to lean forward and remove/reapply her slipper socks. Pt declined doing toileting or other ADLs at this time. Functional [place] Measure 0=Not Assessed/NA 4=Minimal Assistance 1=Total Assistance 5=Supervision or Setup 2=Maximal Assistance 6=Modified [place] 3=Moderate Assistance 7=Complete IndependenceIRFPAI Quality Coding Scale 6 Independent with activity with or without an assistive device 5 Patient requires set up or clean up by helper. Patient completes activity by themselves 4 Supervision or touching assist (CGA). [place] provide cues , steadying assist 3 The helper provides less than half the effort to complete the activity 2 The helper provides more than half the effort to complete the activity 1 Dependent. The helper does all the effort to complete an activity 7 Patient refused to complete or attempt activity 9 The patient did not perform the activity before the current illness or injury 88 Not attempted due to Medical conditions or safety concerns Education OT Patient Education: Purpose of tx/functional activities, Rehab process Teaching Recipient: Patient, Family Teaching Methods: Discussion Response to Teaching: Verbalize Understanding OT Short Term Goals Short Term Goals 1=Demonstrate adherence to instructed precautions during ADL tasks. 2=Patient will verbalize/demonstrate understanding of assistive devices/ modifications for ADL. 3=Patient will improve strength/tolerance for activity to enable patient to perform ADL's. OT Senior Care Goals Marina Porter Goals Time Frame: Aug 11, 2017 Eating (FIM): 6 Grooming(FIM): 6 Bathing(FIM): 6 Upper Body Dressing(FIM): 6 Lower Body Dressing(FIM): 6 Toileting(FIM): 6 Toilet/Commode Transfer(FIM): 6 Shower Transfer(FIM): 5 Additional Goals: 2-Verbalize Understanding, 3-ImproveStrength/Brandy 1=Demonstrate adherence to instructed precautions during ADL tasks. 2=Patient will verbalize/demonstrate understanding of assistive devices/ modifications for ADL. 3=Patient will improve strength/tolerance for activity to enable patient to perform ADL's. OT Education/Plan Problem List/Assessment Assessment: Decreased Activ Tolerance, Decreased UE Strength, Impaired Self- Care Skills Discharge Recommendations Plan/Recommendations: Continue POC Target Placement [facility] for short term skilled care Treatment Plan/Plan of Care Treatment,Training & Education: Yes Patient would benefit from OT for education, treatment and training to promote independence in ADL's, mobility, safety and/or upper extremity function for ADL' s. Plan of Care: ADL Retraining, Functional Mobility, UE Funct Exercise/Act Treatment Duration: Aug 11, 2017 Frequency: 5 times per week Estimated Hrs Per Day: .5 hour per day Agreement: Yes Rehab Potential: Fair Time/GCodes Start Time: 13:47 Stop Time: 14:00 Total Time Billed (hr/min): 13 Billed Treatment Time visit, 13 minutes evaluation low intensity EVELIO CHOWDARY OT Aug 07, 2017 14:14
[2017-08-07 16:00] VITALS: BP 139/73
[2017-08-07 20:00] VITALS: BP 128/66
[2017-08-08 00:36] VITALS: BP 125/68
[2017-08-08] MEDS: inSUlin (REGULAR) HUMAN 1 UNIT/0.01 ML (CHARGE PER UNIT) SC SCH ×2 (00:47→05:56)
[2017-08-08 04:00] VITALS: BP 122/63
[2017-08-08 06:02] LABS: BASOPHILS % (AUTO) 1 % (0-10); EOSINOPHILS # (AUTO) 0.8 10^3/uL (0.0-0.3); EOSINOPHILS % (AUTO) 12 % (0-10); HEMATOCRIT 26 % (35-52); LYMPHOCYTES # (AUTO) 1.4 X 10^3 (1.0-4.0); LYMPHOCYTES % (AUTO) 23 % (12-44); MEAN CORPUSCULAR HEMOGLOBIN 31 PG (25-34); MEAN CORPUSCULAR HGB CONC 30 G/DL (32-36); MEAN CORPUSCULAR VOLUME 103 FL (80-99); MEAN PLATELET VOLUME 12.7 FL (7.4-10.4); MONOCYTES # (AUTO) 0.5 X 10^3 (0.0-1.0); MONOCYTES % (AUTO) 8 % (0-12); NEUTROPHILS # (AUTO) 3.4 X 10^3 (1.8-7.8); NEUTROPHILS % (AUTO) 56 % (42-75); PLATELET COUNT 151 10^3/uL (130-400); RED BLOOD COUNT 2.57 10^6/uL (4.35-5.85); RED CELL DISTRIBUTION WIDTH 15.5 % (10.0-14.5); WHITE BLOOD COUNT 6.1 10^3/uL (4.3-11.0)
[2017-08-08 06:24] LABS: CALCIUM 8.3 MG/DL (8.5-10.1); CREATININE SERUM 2.17 MG/DL (0.60-1.30)
[2017-08-08 06:32] LABS: ANISOCYTOSIS SLIGHT; EOSINOPHILS % (MANUAL) 13 %; LYMPHOCYTES % (MANUAL) 32 %; MONOCYTES % (MANUAL) 6 %; NEUTROPHILS % (MANUAL) 49 %; NUCLEATED RED BLOOD CELLS 2; POIKILOCYTOSIS SLIGHT; POLYCHROMASIA SLIGHT
[2017-08-08] MEDS: PANTOPRAZOLE 20 MG TABLET (PROTONIX) PO SCH (06:35)
[2017-08-08] MEDS: CATHETER FLUSH 10 ML SYR IV SCH (06:36)
--- NOTE | 2017-08-08 07:43 | Pulmonary Progress Note ---
Subjective Time Seen by Provider: 07:42 Subjective/Events-last exam No complications noted. PT has no complaints currently. Exam Exam Vital Signs Date Time Temp Pulse Resp B/P (MAP) Pulse Ox O2 Delivery O2 Flow Rate FiO2 08/08/17 04:00 97.8 87 18 122/63 (82) 97 Nasal Cannula 2.50 08/08/17 01:00 85 08/08/17 00:36 98.1 90 16 125/68 (87) 97 Nasal Cannula 2.50 08/07/17 20:18 92 Nasal Cannula 3.00 08/07/17 20:00 98.3 84 19 128/66 (86) 94 Nasal Cannula 2.50 08/07/17 20:00 Nasal Cannula 3.00 08/07/17 19:00 85 08/07/17 16:00 97.8 98 22 139/73 (95) 90 Nasal Cannula 2.50 08/07/17 13:00 88 08/07/17 12:00 98.4 87 18 126/65 (85) 96 Nasal Cannula 2.50 08/07/17 09:30 96 97 32 08/07/17 08:00 98.1 88 16 137/60 (85) 95 Nasal Cannula 2.50 08/07/17 08:00 Nasal Cannula 3.00 I & O 08/08/17 06:59 Intake Total 3200 ml Balance 3200 ml General Appearance: No Apparent Distress, WD/WN HEENT: Pharynx Normal Neck: Full Range of Motion Respiratory: No Respiratory Distress, Decreased Breath Sounds, Other (on oxygen ) Cardiovascular: Regular Rate, Rhythm, No Murmur Gastrointestinal: normal bowel sounds, non tender, soft, no organomegaly Extremity: No Pedal Edema Neurologic/Psychiatric: Alert, Oriented x3 Skin: Normal Color, Warm/Dry Lymphatic: No Adenopathy Results Lab Laboratory Tests 08/07/17 05:50 08/08/17 05:19 Assessment/Plan Assessment/Plan Acute on chronic renal failure -improving Acute seizures -Ativan PRN -Keppra Hx of CHF Pt is ok for discharge from pulm standpoint. Will have RT do oxygen testing. I am going to sign off for now. Please call with any questions or concerns. 232 Clinical Quality Measures DVT/VTE Risk/Contraindication: Risk Factor Score Per Nursin RFS Level Per Nursing on Admit: 2=Moderate RIYA DILLARD DO Aug 08, 2017 07:43
[2017-08-08] MEDS: MICONAZOLE 2% POWDER (DESENEX AF) 90 GM TOP SCH (07:44)
[2017-08-08] MEDS: LEVETIRACETAM 500 MG (KEPPRA) TAB PO SCH (07:44)
[2017-08-08] MEDS: ASPIRIN 81 MG CHEW (CHILDREN'S ASA) PO SCH (07:44)
--- NOTE | 2017-08-08 07:57 | Cardiology Progress Note ---
Subjective Date Seen by Provider: Aug 08, 2017 Time Seen by Provider: 07:56 Subjective/Events-last exam patient is laying down in bed, feeling better today. No chest pain or shortness of breath Review of Systems General: No Chills, No Night Sweats, No Fatigue, No Malaise, No Appetite, No Other HEENT: No Head Aches, No Visual Changes, No Eye Pain, No Ear Pain, No Dysphasia , No Sinus Congestion, No Post Nasal Drip, No Sore Throat, No Other Pulmonary: No Dyspnea, No Cough, No Pleuritic Chest Pain, No Other Cardiovascular: No: Chest Pain, Palpitations, Orthopnea, Paroxysmal Noc. Dyspnea, Edema, Lt Headedness, Other Objective-Cardiology Exam Last Set of Vital Signs Vital Signs 08/07/17 08/08/17 09:30 04:00 Temp 97.8 Pulse 87 Resp 18 B/P (MAP) 122/63 (82) Pulse Ox 97 O2 Delivery Nasal Cannula O2 Flow Rate 2.50 FiO2 32 Capillary Refill : Less Than 3 Seconds I&O Intake and Output 08/08/17 00:00 Intake Total 3900 ml Balance 3900 ml Intake Oral 3900 ml # Voids 17 # Bowel Movements 6 General: Alert, Oriented X3, Cooperative, Mild Distress HEENT: Atraumatic Neck: Supple, No JVD Lungs: Clear to Auscultation, Normal Air Movement Heart: Regular Rate, Normal S1, Normal S2 Abdomen: Normal Bowel Sounds Extremities: No Clubbing, No Cyanosis Skin: No Rashes Neuro: Normal Speech, Normal Tone Results Lab Laboratory Tests 08/08/17 05:19 A/P-Cardiology Admission Diagnosis Acute renal failure Acute respiratory failure Ventricular tachycardia Metabolic acidosis Assessment/Plan Acute renal failure, improving, continue current treatment and monitor renal function, managed by primary care physician Status post Acute respiratory failure, extubated and doing better, significant improvement, managed by Dr Worthy Multiple seizures, history of seizure in the past, On Keppra, continue to monitor Anemia, managed by primary care physician. No evidence of any acute coronary syndrome History of Ventricular fibrillation and arrest in 2007, details unknown, had an ICD implanted by Dr. Boyd, no recent checkup was done. 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
[2017-08-08 08:00] VITALS: BP 124/71
[2017-08-08] MEDS: RT-ALBUTEROL/IPRATROPIUM 3 ML (DUONEB) VIAL INH SCH (08:09)
--- NOTE | 2017-08-08 09:35 | Discharge Inst-Skilled Nursing ---
Discharge Inst-Skilled NF Consult/Follow Up/Orders Follow Up Appt.: With Dr Persaud in 1-2 weeks. Skilled NF Admit to: [facility] Certification (SNF) I certify that SNF services are required to be given on an inpatient basis because of the above named patient's need for chcf care on a continuing basis for the conditions(s) for which he/she was receiving inpatient hospital services prior to his/her transfer to the SNF. [facility] Facility Order: Nursing Services, Drywall Sprayer-Evaluate & Treat, Physical Therapy-Evaluate & Treat Discharge Diet: Low Sodium Diet Daily Activity as Tolerated: Yes New & Resume Previous Orders Rosario Diaz Aug 08, 2017 09:35 ROSARIO DIAZ MD Aug 08, 2017 09:35
[2017-08-08] MEDS ORDERED: LEVE500T6 PO (09:38)
[2017-08-08 11:30] VITALS: BP 128/88
--- NOTE | 2017-08-08 12:58 | Discharge Summary-Hospitalist ---
Diagnosis/Chief Complaint Date of Admission Aug 02, 2017 at 5:15 pm Date of Discharge Discharge Date: Aug 08, 2017 Admission Diagnosis Assessment: Acute on chronic renal failure with metabolic acidosis in need of bicarbonate drip Experience status epilepticus that required intubation History of seizure disorder History of chronic debility previously DO NOT RESUSCITATE now full code family changed their mind anemia of chronic kidney disease Hypernatremia Discharge Diagnosis Acute renal failure (1) Acute renal failure (ARF) Assessment & Plan: Resolved, back to her baseline (2) Seizure disorder Status: Acute Assessment & Plan: Continue on keppra (3) Respiratory distress Status: Acute Assessment & Plan: now extubated Remains on oxygen though minimal amount qualified for home oxygen (4) Normocytic anemia Status: Acute Assessment & Plan: Has trended down Iron levels normal Likely due to chronic disease (5) Discharge planning issues Assessment & Plan: DC to SNF for rehab Considering moving to [place] to be closer to [facility] Discharge Summary Consultations Dr Haynes- Cardiology Dr Worthy- Pulm/CC Discharge Physical Examination Allergies: Coded Allergies: No Known Drug Allergies (Unverified , 08/02/17) Vitals & I&Os Vital Signs Date Time Temp Pulse Resp B/P (MAP) Pulse Ox O2 Delivery O2 Flow Rate FiO2 08/08/17 09:10 95 3.00 08/08/17 08:09 Nasal Cannula 08/08/17 08:00 98.4 91 20 124/71 (88) 08/07/17 09:30 32 Hospital Course Pt was admitted to the hospital for acute renal failure and subsequently developed status epilepticus requiring intubation. She was on a bicarb gtt early in the admission but renal function improved and was able to titrate off and her creatinine returned to her baseline. She was started on Keppra and had no further seizure activity and was able to be extubated. She is to discharge to a SNF. On discharge she was improved and stable. Labs (last 24 hrs) Laboratory Tests 08/07/17 18:00: Glucometer 101 08/08/17 00:30: Glucometer 95 08/08/17 05:19: White Blood Count 6.1, Red Blood Count 2.57L, Hemoglobin 8.0L, Hematocrit 26L, Mean Corpuscular Volume 103H, Mean Corpuscular Hemoglobin 31, Mean Corpuscular Hemoglobin Concent 30L, Red Cell Distribution Width 15.5H, Platelet Count 151, Mean Platelet Volume 12.7H, Neutrophils (%) (Auto) 56, Lymphocytes (%) (Auto) 23 , Monocytes (%) (Auto) 8, Eosinophils (%) (Auto) 12H, Basophils (%) (Auto) 1, Neutrophils # (Auto) 3.4, Lymphocytes # (Auto) 1.4, Monocytes # (Auto) 0.5, Eosinophils # (Auto) 0.8H, Basophils # (Auto) 0.0, Neutrophils % (Manual) 49, Lymphocytes % (Manual) 32, Monocytes % (Manual) 6, Eosinophils % (Manual) 13, Nucleated Red Blood Cells 2, Polychromasia SLIGHT, Poikilocytosis SLIGHT, Anisocytosis SLIGHT, Macrocytosis SLIGHT, Sodium Level 145, Potassium Level 4.0 , Chloride Level 113H, Carbon Dioxide Level 19L, Anion Gap 13, Blood Urea Nitrogen 18, Creatinine 2.17H, Estimat Glomerular Filtration Rate 22, BUN/ Creatinine Ratio 8, Glucose Level 78, Calcium Level 8.3L 08/08/17 05:51: Glucometer 80 Microbiology 08/03/17 Blood Culture - Preliminary, Resulted No growth 08/03/17 Gram Stain - Final, Complete 08/03/17 Sputum Culture - Final, Complete Usual/normal [place] isolated. Pending Labs Laboratory Tests 08/08/17 05:19: White Blood Count 6.1, Red Blood Count 2.57, Hemoglobin 8.0, Hematocrit 26, Mean Corpuscular Volume 103, Mean Corpuscular Hemoglobin 31, Mean Corpuscular Hemoglobin Concent 30, Red Cell Distribution Width 15.5, Platelet Count 151, Mean Platelet Volume 12.7, Neutrophils (%) (Auto) 56, Lymphocytes (%) (Auto) 23 , Monocytes (%) (Auto) 8, Eosinophils (%) (Auto) 12, Basophils (%) (Auto) 1, Neutrophils # (Auto) 3.4, Lymphocytes # (Auto) 1.4, Monocytes # (Auto) 0.5, Eosinophils # (Auto) 0.8, Basophils # (Auto) 0.0, Neutrophils % (Manual) 49, Lymphocytes % (Manual) 32, Monocytes % (Manual) 6, Eosinophils % (Manual) 13, Nucleated Red Blood Cells 2, Polychromasia SLIGHT, Poikilocytosis SLIGHT, Anisocytosis SLIGHT, Macrocytosis SLIGHT, Sodium Level 145, Potassium Level 4.0 , Chloride Level 113, Carbon Dioxide Level 19, Anion Gap 13, Blood Urea Nitrogen 18, Creatinine 2.17, Estimat Glomerular Filtration Rate 22, BUN/ Creatinine Ratio 8, Glucose Level 78, Calcium Level 8.3 08/08/17 05:51: Glucometer 80 Discharge Home Medications: Active Scripts Active Levetiracetam 500 Mg Tablet 500 Mg PO DAILY Reported Aspirin EC (Aspirin) 81 Mg Tablet.dr 81 Mg PO DAILY Vitamin D3 (Cholecalciferol (Vitamin D3)) 1,000 Unit Capsule 1,000 Unit PO DAILY Calcium Magnesium + D Tablet (Calcium Carb/Magnesium Oxid/D3) 1 Each Tablet 1 Tab PO BID Omeprazole 20 Mg Capsule.dr 20 Mg PO DAILY Levothyroxine Sodium 150 Mcg Tablet 300 Mcg PO DAILY TAKES 2 (150MCG) TABLETS Super B Complex (Vitamin B Complex & Vit C No.4) 150 Mg Tablet 150 Mg PO DAILY Hair, Skin & Nails Caplet (Multivits Min/Iron/FA/Herb#186) 1 Each Tablet 1 Tab PO DAILY Vitamin C (Ascorbic Acid) 1,000 Mg Tablet 1,000 Mg PO HS Magnesium (Magnesium Oxide) 500 Mg Capsule 500 Mg PO DAILY Metoprolol Succinate 50 Mg Tab.er.24h 50 Mg PO BID Simvastatin 20 Mg Tablet 20 Mg PO HS Instructions to patient/family Please see electronic discharge instructions given to patient. Clinical Quality Measures DVT/VTE Risk/Contraindication: Risk Factor Score Per Nursin RFS Level Per Nursing on Admit: 2=Moderate Copy Copies To 1: MIKAEL FLORENCE KATELYN M MD Aug 08, 2017 12:58 pm
== END 2017-08-08 11:30 | DRG 682 ==
LOC: ICU 17:15 → 4TH 08-05 15:15
PROVIDERS: ADMIT Internal Medicine; ATTEND Internal Medicine Critical Care Medicine
PROC: 5A1945Z Respiratory Ventilation, 24-96 Consecutive Hours (ICD-10-PCS; principal; 2017-08-03)
DX: N17.9 Acute kidney failure, unspecified (principal); E87.2 Acidosis; J96.00 Acute respiratory failure, unspecified whether with hypoxia or hypercapnia; I47.2 Ventricular tachycardia; E86.0 Dehydration; G40.901 Epilepsy, unspecified, not intractable, with status epilepticus; I12.9 Hypertensive chronic kidney disease with stage 1 through stage 4 chronic kidney disease, or unspecified chronic kidney disease; N18.9 Chronic kidney disease, unspecified; F41.9 Anxiety disorder, unspecified; E87.6 Hypokalemia; I25.10 Atherosclerotic heart disease of native coronary artery without angina pectoris; E78.5 Hyperlipidemia, unspecified; D63.1 Anemia in chronic kidney disease; E03.9 Hypothyroidism, unspecified; I65.23 Occlusion and stenosis of bilateral carotid arteries; I35.1 Nonrheumatic aortic (valve) insufficiency; Z95.810 Presence of automatic (implantable) cardiac defibrillator; Z98.84 Bariatric surgery status; Z86.79 Personal history of other diseases of the circulatory system; Z86.73 Personal history of transient ischemic attack (TIA), and cerebral infarction without residual deficits
CPT/HCPCS: 36415; 70450; 71045; 80048; 80053; 82330; 82728; 82805; 82962; 83540; 83605; 83735; 84100; 84132; 84145; 84295; 85007; 85025; 85027; 87040; 87070; 87205; 93005; 93306; 94002; 94003; 94640; 94664; 94760; 94761; 94799

== ENCOUNTER 2017-10-01 07:23 | Inpatient (IN) | payer MEDICARE, MEDICAID ==
[~2017-10-01] VITALS: Ht 157.5 cm; Wt 58.1 kg
[~2017-10-01 07:23] MED LIST changes: +ASPI-983 PO; +CALC-408 PO; +CHOL10007 PO; +LEVE500T6 PO; +LEVO150T6 PO; +OMEP20CA12 PO
--- NOTE | 2017-10-01 07:28 | ED Neurological Problem ---
General Stated Complaint: FALL Source: patient, EMS Exam Limitations: clinical condition History of Present Illness Date Seen by Provider: Oct 01, 2017 Time Seen by Provider: 07:16 Initial Comments Patient presents to ER by EMS with a chief complaint that she was at [facility] where she lives and found down by someone who typically has breakfast with her laying on the floor of her apartment. EMS reports she only told them her name and that she wants to be left alone. She does have a history of seizures. Unknown how long she was down and last known well time is unknown. Negative for stroke score per EMS. Patient says she does not take any medicines nor does she have any medical allergies denies tobacco alcohol or drug use. She does state she has a seizure disorder but does not think she's had any seizures. Patient says nothing hurts and repeatedly asserts that she wants to be left alone but will give no more meaningful answers. Allergies and Home Medications Allergies Coded Allergies: No Known Drug Allergies (Unverified , 08/02/17) Home Medications Ascorbic Acid 1,000 Mg Tablet, 1,000 MG PO HS, (Reported) Aspirin 81 Mg Tablet.dr, 81 MG PO DAILY, (Reported) Calcium Carb/Magnesium Oxid/D3 1 Each Tablet, 1 TAB PO BID, (Reported) Cholecalciferol (Vitamin D3) 1,000 Unit Capsule, 1,000 UNIT PO DAILY, (Reported) Levetiracetam 500 Mg Tablet, 500 MG PO DAILY Prescribed by: ROSARIO ESCOBAR on 08/08/17 0938 Levothyroxine Sodium 150 Mcg Tablet, 300 MCG PO DAILY, (Reported) TAKES 2 (150MCG) TABLETS Magnesium Oxide 500 Mg Capsule, 500 MG PO DAILY, (Reported) Metoprolol Succinate 50 Mg Tab.er.24h, 50 MG PO BID, (Reported) Multivits Min/Iron/FA/Herb#186 1 Each Tablet, 1 TAB PO DAILY, (Reported) Omeprazole 20 Mg Capsule.dr, 20 MG PO DAILY, (Reported) Simvastatin 20 Mg Tablet, 20 MG PO HS, (Reported) Vitamin B Complex & Vit C No.4 150 Mg Tablet, 150 MG PO DAILY, (Reported) Patient Home Medication List Home Medication List Reviewed: Yes Constitutional: see HPI, No chills, No fever Eyes: Denies Blindness, Denies Pain Ears, Nose, Mouth, Throat: denies ear pain, denies mouth pain Respiratory: No cough, No short of breath Cardiovascular: No chest pain, No palpitations Gastrointestinal: No abdominal pain, No constipation, No diarrhea, No nausea Genitourinary: No discharge, No dysuria Musculoskeletal: No back pain, No joint pain Skin: No pruritus, No rash Psychiatric/Neurological: Denies Headache, Denies Numbness Past Qghhifn-Xmbpxr-Syuxcp Hx Patient Social History Alcohol Use: Denies Use Recreational Drug Use: No Smoking Status: Never a Smoker Recent Hopitalizations: No Immunizations Up To Date Tetanus Booster (TDap): Unknown Date of Pneumonia Vaccine: Jul 20, 2011 Date of Influenza Vaccine: Aug 07, 2017 Seasonal Allergies Seasonal Allergies: No Surgeries History of Surgeries: Yes (GASTRIC BYPASS) Surgeries: Section, Hysterectomy Respiratory History of Respiratory Disorde: No Currently Using CPAP: No Currently Using BIPAP: No Cardiovascular History of Cardiac Disorders: Yes (pacemaker) Cardiac Disorders: Hypertension Neurological History of Neurological Disord: Yes Neurological Disorders: Seizure Disorder Reproductive System Hx Reproductive Disorders: No Sexually Transmitted Disease: No HIV/AIDS: No 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 Genitourinary History of Genitourinary Disor: No Gastrointestinal History of Gastrointestinal Di: No Musculoskeletal History of Musculoskeletal Dis: No Endocrine History of Endocrine Disorders: Yes HEENT History of HEENT Disorders: Yes HEENT Disorders: Cataract Cancer History of Cancer: No Psychosocial History of Psychiatric Problem: Yes Behavioral Health Disorders: Anxiety Integumentary History of Skin or Integumenta: No Blood Transfusions History of Blood Disorders: No Family Medical History Family Medial History: Cardiovascular disease Completed stroke Hypertension Seizure disorder No Family History of: AIDS Abdominal aortic aneurysm [place]'s disease Alcoholism Alzheimer's disease Aphasia Arthritis Asthma Cancer of mouth Cataracts Colon cancer Congenital disease Congenital heart disease Coronary thrombosis Cystic fibrosis Deafness or hearing loss Dementia Diabetes mellitus Drug abuse Dysphasia Fibrocystic disease of breast Gastroenteritis Glaucoma Headache disorder Hypercholesterolemia Infertility Kidney disease Myocardial infarction Neoplasm Not obtainable due to adoption Osteoporosis Parkinson's disease Prostate cancer Psychosocial problem Respiratory disorder Severe allergy Thyroid disease Tuberculosis Visual disorder Physical Exam Vital Signs Vital Signs - First Documented 10/01/17 07:46 Temp 95.6 Pulse 86 Resp 16 B/P (MAP) 113/95 (101) Pulse Ox 97 O2 Delivery Room Air Capillary Refill : General Appearance: WD/WN, no apparent distress HEENT: PERRL/EOMI, normal ENT inspection, TMs normal, pharynx normal (oral mucosa is dry) Neck: non-tender, full range of motion, supple, normal inspection Respiratory: chest non-tender, lungs clear, normal breath sounds, no respiratory distress, no accessory muscle use Cardiovascular: normal peripheral pulses, regular rate, rhythm, no edema, tachycardia (initially after move but shortly return to the 80s) Peripheral Pulses: 2+ Radial Pulses (R), 2+ Radial Pulses (L) Gastrointestinal: normal bowel sounds, non tender, soft, no organomegaly Back: normal inspection, no vertebral tenderness Extremities: normal range of motion, non-tender, normal inspection, no calf tenderness, normal capillary refill Neurologic/Psychiatric: no motor/sensory deficits, alert, disoriented x 3, other (moves all 4 extremities independently and follow some commands but will not answer questions anymore than to say yes or no and leave me alone. She is unable to cooperate to do a complete neurologic exam but no sensory or motor deficit in the uncovered. Patient is somnolent but easily arouses to verbal stimuli.) Crainal Nerves: normal hearing, normal speech, PERRL Motor/Sensory: no motor deficit, no sensory deficit Skin: warm/dry, pallor Lymphatic: no adenopathy Stroke Stroke Thrombolytic Exclusion Age 18 or Over: Yes History of CVA: Yes Severe Hypertension: No GI or Bleed: No Subarachnoid Hemorrhage: No Intracranial Neoplasm/Aneurysm: No Puncture of Non-Compressible V: No Recent CPR: No Diabetic Hemorrhagic Retinopat: No Date of ETT Placement: Aug 03, 2017 Time of ETT Placement: 0100 Progress/Results/Core Measures Results/Orders Lab Results Laboratory Tests Test 10/01/17 07:30 10/01/17 07:35 Range/Units Urine Color YELLOW Urine Clarity CLEAR Urine pH 5 5-9 Urine Specific [place] 1.010 L 1.016-1.022 Urine Protein 3+ H NEGATIVE Urine Glucose (UA) NEGATIVE NEGATIVE Urine Ketones NEGATIVE NEGATIVE Urine Nitrite NEGATIVE NEGATIVE Urine Bilirubin NEGATIVE NEGATIVE Urine Urobilinogen NORMAL NORMAL MG/DL Urine Leukocyte Esterase NEGATIVE NEGATIVE Urine RBC (Auto) 3+ H NEGATIVE Urine RBC NONE /HPF Urine WBC RARE /HPF Urine Squamous Epithelial Cells RARE /HPF Urine Crystals PRESENT H /LPF Urine Amorphous Sediment FEW JOSE URATES H /LPF Urine Bacteria FEW H /HPF Urine Casts NONE /LPF Urine Mucus NEGATIVE /LPF Urine Culture Indicated NO Urine Opiates Screen NEGATIVE NEGATIVE Urine Oxycodone Screen NEGATIVE NEGATIVE Urine Methadone Screen NEGATIVE NEGATIVE Urine Propoxyphene Screen NEGATIVE NEGATIVE Urine Barbiturates Screen NEGATIVE NEGATIVE Ur Tricyclic Antidepressants Screen NEGATIVE NEGATIVE Urine Phencyclidine Screen NEGATIVE NEGATIVE Urine Amphetamines Screen NEGATIVE NEGATIVE Urine Methamphetamines Screen NEGATIVE NEGATIVE Urine Benzodiazepines Screen NEGATIVE NEGATIVE Urine Cocaine Screen NEGATIVE NEGATIVE Urine Cannabinoids Screen NEGATIVE NEGATIVE White Blood Count 10.5 4.3-11.0 10^3/uL Red Blood Count 4.00 L 4.35-5.85 10^6/uL Hemoglobin 12.9 11.5-16.0 G/DL Hematocrit 39 35-52 % Mean Corpuscular Volume 97 80-99 FL Mean Corpuscular Hemoglobin 32 25-34 PG Mean Corpuscular Hemoglobin Concent 33 32-36 G/DL Red Cell Distribution Width 15.4 H 10.0-14.5 % Platelet Count 214 130-400 10^3/uL Mean Platelet Volume 12.6 H 7.4-10.4 FL Neutrophils (%) (Auto) 69 42-75 % Lymphocytes (%) (Auto) 20 12-44 % Monocytes (%) (Auto) 4 0-12 % Eosinophils (%) (Auto) 6 0-10 % Basophils (%) (Auto) 1 0-10 % Neutrophils # (Auto) 7.3 1.8-7.8 X 10^3 Lymphocytes # (Auto) 2.1 1.0-4.0 X 10^3 Monocytes # (Auto) 0.4 0.0-1.0 X 10^3 Eosinophils # (Auto) 0.6 H 0.0-0.3 10^3/uL Basophils # (Auto) 0.1 0.0-0.1 10^3/uL Sodium Level 142 135-145 MMOL/L Potassium Level 4.1 3.6-5.0 MMOL/L Chloride Level 118 H 98-107 MMOL/L Carbon Dioxide Level 11 L 21-32 MMOL/L Anion Gap 13 5-14 MMOL/L Blood Urea Nitrogen 44 H 7-18 MG/DL Creatinine 2.63 H 0.60-1.30 MG/DL Estimat Glomerular Filtration Rate 18 BUN/Creatinine Ratio 17 Glucose Level 123 H 70-105 MG/DL Calcium Level 7.6 L 8.5-10.1 MG/DL Total Bilirubin 0.6 0.1-1.0 MG/DL Aspartate Amino Transf (AST/SGOT) 20 5-34 U/L Alanine Aminotransferase (ALT/SGPT) 14 0-55 U/L Alkaline Phosphatase 74 40-136 U/L Total Creatine Kinase 141 29-168 U/L Myoglobin 271.7 H 10.0-92.0 NG/ML Troponin I < 0.30 <0.30 NG/ML C-Reactive Protein High Sensitivity 0.07 0.00-0.50 MG/DL Total Protein 6.5 6.4-8.2 GM/DL Albumin 3.9 3.2-4.5 GM/DL Serum Alcohol < 10 <10 MG/DL My Orders Orders - RANI MORGAN Ct Head/Cervical Spine Wo (10/01/17 07:29) Saline Lock/Iv-Start (10/01/17 07:29) Alcohol (10/01/17:29) Cbc With Automated Diff (10/01/17:29) Comprehensive Metabolic Panel (10/01/17:29) Hs C Reactive Protein (10/01/17:29) Drug Screen Stat (Urine) (10/01/17:29) Troponin I (10/01/17:29) Ua Culture If Indicated (10/01/17:29) Myoglobin Serum (10/01/17:29) Chest 1 View, Ap/Pa Only (10/01/17 07:29) Ns Iv 1000 Ml (Sodium Chloride 0.9%) (10/01/17 07:29) Continuous Ekg Monitoring (10/01/17:29) Ekg Tracing (10/01/17:29) Levetiracetam Injection (Keppra Injectio (10/01/17 08:50) Medications Given in ED Current Medications Medications Dose Ordered Sig/Chelly Route Start Time Stop Time Status Last Admin Dose Admin Sodium Chloride 1,000 ml @ 0 mls/hr Q0M ONCE IV 10/01/17 07:29 10/01/17 07:32 DC 10/01/17 08:15 1,000 MLS/HR Vital Signs/I&O Vital Sign - Last 12Hours 10/01/17 07:46 Temp 95.6 Pulse 86 Resp 16 B/P (MAP) 113/95 (101) Pulse Ox 97 O2 Delivery Room Air Progress Note #1: Time: 07:35 Progress Note Altered mental status seems to be possible metabolic versus postictal versus hemorrhage secondary to it although there is no outward evidence of cranial trauma. Could also be a CVA. Other than being disoriented and mildly somnolent the patient is not demonstrating any neurologic deficits. She is not cooperative enough to check for drift or gait instability. We are going to look for infection and give her some fluids. Myoglobin since she could've been down for some time. Progress Note #2: Time: 08:40 Progress Note No evidence of infection. The patient appears to be little dry on her labs and clinical examinations were deferred given her some fluids. She does have some pulmonary congestion seen on x-ray she is not on a diuretic. Not having any difficulty breathing and her vitals have been completely benign since being here. It's possible she is postictal after a seizure. Her myoglobin is just mildly elevated about twice the upper limit of normal and she may benefit from an observation stay with some IV fluids while she wakes up. At this time she is not in a be safe to go home and take care of herself. Reexamination demonstrates that she is a little more conversational at least now oriented to place and situation however not time. She says she is not having any pain anywhere or nausea but does feel a little out of it and would feel more comfortable if she spent a day in the hospital and going home by herself. Previous records indicate the patient has been on Keppra sore throat go ahead and give her some IV Keflex since she has unlikely taken her morning dose today. Her creatinine is fairly stable at 2.6 from her typical 2.1-2.3 seen over the last to 3 years. ECG Initial ECG Impression Date: Oct 01, 2017 Initial ECG Impression Time: 08:18 Initial ECG Rate: 74 Initial ECG Rhythm: Normal Sinus Initial ECG Intervals: Normal Initial ECG Impression: Normal Initial ECG Comparisson: Unchanged Comment No ST segment elevation or depression. Diagnostic Imaging Diagonstic Imaging: Xray Plain Films/CT/US/NM/MRI: chest Comments VIA [facility] [place]. [place], [place] NAME: BOWDENALEX [facility] REC#: [id number] PT STATUS: REG ER : 1940 PHYSICIAN: RANI MORGAN MD ADMIT DATE: 10/01/17/ER Draft Date of Exam:10/01/17 CHEST 1 VIEW, AP/PA ONLY INDICATION: Confusion. Comparison made with prior examination 08/05/2017. FINDINGS: There is cardiomegaly. Mild venous congestion. There is no pleural effusion or pneumothorax. Mediastinum is unremarkable. Pacemaker overlies left hemithorax. IMPRESSION: Cardiomegaly and mild central pulmonary venous congestion. Dictated on workstation # [id number] Dict: 10/01/17 0806 Trans: 10/01/17 0822 [id number] Interpreted by: AILEEN GUDINO MD Electronically signed by: Reviewed: Reviewed by Me Diagonstic Imaging: CT Plain Films/CT/US/NM/MRI: c-spine, head Comments VIA [place], [place] NAME: ALEX BOWDEN [facility] REC#: [id number] PT STATUS: REG ER : 1940 PHYSICIAN: RANI MORGAN MD ADMIT DATE: 10/01/17/ER Draft Date of Exam:10/01/17 CT HEAD/CERVICAL SPINE WO PROCEDURE: CT head and CT cervical spine without contrast. TECHNIQUE: Multiple contiguous axial images were obtained through the brain and cervical spine without the use of intravenous contrast. Sagittal and coronal reformations through the cervical spine were then performed. INDICATION: Found confused, history of seizure disorder. The head CT compared 08/03/2017. FINDINGS: Chronic left posterior frontal and parietal area of cystic encephalomalacia is an unchanged finding. This results in some mild compensatory enlargement of the atria and posterior horn of the left lateral ventricle unchanged. There is no acute or new mass effect and no evidence of intracranial hemorrhage. There is no cerebral edema or findings of elevation to the intracranial pressures. Basal cisterns patent. The sulci non-effaced. There is opacification of left-sided mastoid air cells but this unchanged from the previous exam. There is opacification of left middle ear cavity this is also unchanged from the previous exam. The paranasal sinuses and the right mastoids are clear. No fracture deformity is apparent. CT cervical spine: There is degenerative narrowing of intervertebral disc spaces, facet arthrosis and endplate osteophytes with uncovertebral joint spurring on a chronic basis. There is slight retrolisthesis of just over 1 mm C3 on C4 and C4 on C5 accompanied by extensive degenerative change believed to be on degenerative basis itself. A fracture or dislocation is not identified and no acute or posttraumatic sequelae apparent. There is carotid atherosclerotic vascular calcifications. IMPRESSION: CT head: Chronic area of cystic encephalomalacia and compensatory asymmetric ventriculomegaly. Chronic or recurrent left-sided mastoid and middle ear opacification. No new or acute appearing abnormality. CT cervical spine: Spondylosis, facet arthrosis and degenerative changes result in slight grade 1 listhesis. However, no fracture or traumatic malalignment. Chronic atherosclerotic carotid vascular disease. Dictated on workstation # [id number] Dict: 10/01/17 0806 Trans: 10/01/17 08 [id number] Interpreted by: RODO MORENO Electronically signed by: Reviewed: Reviewed by Me Departure Communication (Admissions) Time/Spoke to Admitting Phy: 08:[address] Philippe; discussed case lab imaging findings and plan to admit, give fluids and observe. Impression Impression: Primary Impression: Dehydration Additional Impression: Post-ictal confusion Disposition: ADMITTED INPATIENT Condition: Stable Admissions Decision to Admit Reason: Admit from ER (General) Decision to Admit/Date: Oct 01, 2017 Time/Decision to Admit Time: 08:46 Departure-Patient Inst. Referrals: MIKAEL FLORENCE DO (PCP/Family) Primary Care Physician Copy Copies To 1: MIKAEL FLORENCE TITUS J Oct 01, 2017 07:28
[2017-10-01] MEDS ORDERED: NS IV 1000 ML 1,000 ML IV ONE (07:29)
[2017-10-01 07:48] LABS: BILIRUBIN,URINE NEGATIVE (NEGATIVE); CLARITY,URINE CLEAR; COLOR,URINE YELLOW; GLUCOSE, URINE (UA) NEGATIVE (NEGATIVE); KETONES,URINE NEGATIVE (NEGATIVE); LEUKOCYTE ESTERASE ,URINE NEGATIVE (NEGATIVE); NITRITE,URINE NEGATIVE (NEGATIVE); PH,URINE 5 (5-9); PROTEIN,URINE 3+ (NEGATIVE); UROBILINOGEN,URINE NORMAL (NORMAL)
[2017-10-01 07:48] LABS: BASOPHILS # (AUTO) 0.1 10^3/uL (0.0-0.1); BASOPHILS % (AUTO) 1 % (0-10); EOSINOPHILS # (AUTO) 0.6 10^3/uL (0.0-0.3); EOSINOPHILS % (AUTO) 6 % (0-10); HEMATOCRIT 39 % (35-52); HEMOGLOBIN 12.9 G/DL (11.5-16.0); LYMPHOCYTES # (AUTO) 2.1 X 10^3 (1.0-4.0); LYMPHOCYTES % (AUTO) 20 % (12-44); MEAN CORPUSCULAR HEMOGLOBIN 32 PG (25-34); MEAN CORPUSCULAR HGB CONC 33 G/DL (32-36); MEAN CORPUSCULAR VOLUME 97 FL (80-99); MEAN PLATELET VOLUME 12.6 FL (7.4-10.4); MONOCYTES # (AUTO) 0.4 X 10^3 (0.0-1.0); MONOCYTES % (AUTO) 4 % (0-12); NEUTROPHILS # (AUTO) 7.3 X 10^3 (1.8-7.8); NEUTROPHILS % (AUTO) 69 % (42-75); PLATELET COUNT 214 10^3/uL (130-400); RED CELL DISTRIBUTION WIDTH 15.4 % (10.0-14.5); WHITE BLOOD COUNT 10.5 10^3/uL (4.3-11.0)
[2017-10-01 08:05] LABS: AMPHETAMINE SCREEN, URINE NEGATIVE (NEGATIVE); BARBITURATE SCREEN URINE NEGATIVE (NEGATIVE); BENZODIAZEPINES SCREEN URINE NEGATIVE (NEGATIVE); CANNABINOID SCREEN, URINE NEGATIVE (NEGATIVE); COCAINE SCREEN URINE NEGATIVE (NEGATIVE); METHADONE STAT NEGATIVE (NEGATIVE); METHAMPHETAMINE SCREEN URINE S NEGATIVE (NEGATIVE); OPIATE SCREEN URINE NEGATIVE (NEGATIVE); OXYCODONE STAT NEGATIVE (NEGATIVE); PROPOXYPHENE STAT NEGATIVE (NEGATIVE); TRICYCLIC ANTIDEPRESSANTS SCRE NEGATIVE (NEGATIVE)
[2017-10-01 08:06] LABS: BACTERIA,URINE FEW /HPF; SQUAMOUS EPITHELIAL CELL,UR RARE /HPF; WBC,URINE RARE /HPF
[2017-10-01 08:07] LABS: AMORPHOUS SEDIMENT,UR FEW AMOR URATES /LPF
[2017-10-01 08:07] LABS: ALANINE AMINOTRANSFERASE 14 U/L (0-55); ALBUMIN 3.9 GM/DL (3.2-4.5); ALKALINE PHOSPHATASE 74 U/L (40-136); BILIRUBIN,TOTAL 0.6 MG/DL (0.1-1.0); BUN/CREATININE RATIO 17; CALCIUM 7.6 MG/DL (8.5-10.1); CARBON DIOXIDE 11 MMOL/L (21-32); CHLORIDE 118 MMOL/L (98-107); CREATININE SERUM 2.63 MG/DL (0.60-1.30); GFR ESTIMATED 18; GLUCOSE 123 MG/DL (70-105); POTASSIUM 4.1 MMOL/L (3.6-5.0); SODIUM 142 MMOL/L (135-145); TOTAL PROTEIN 6.5 GM/DL (6.4-8.2)
[2017-10-01 08:14] LABS: MYOGLOBIN SERUM 271.7 NG/ML (10.0-92.0)
--- NOTE | 2017-10-01 08:23 | Diagnostic Imaging Report ---
INDICATION: Confusion. Comparison made with prior examination 08/05/2017. FINDINGS: There is cardiomegaly. Mild venous congestion. There is no pleural effusion or pneumothorax. Mediastinum is unremarkable. Pacemaker overlies left hemithorax. IMPRESSION: Cardiomegaly and mild central pulmonary venous congestion. Dictated by: Dictated on workstation # [id number]
--- NOTE | 2017-10-01 08:30 | Diagnostic Imaging Report ---
PROCEDURE: CT head and CT cervical spine without contrast. TECHNIQUE: Multiple contiguous axial images were obtained through the brain and cervical spine without the use of intravenous contrast. Sagittal and coronal reformations through the cervical spine were then performed. INDICATION: Found confused, history of seizure disorder. The head CT compared 08/03/2017. FINDINGS: Chronic left posterior frontal and parietal area of cystic encephalomalacia is an unchanged finding. This results in some mild compensatory enlargement of the atria and posterior horn of the left lateral ventricle unchanged. There is no acute or new mass effect and no evidence of intracranial hemorrhage. There is no cerebral edema or findings of elevation to the intracranial pressures. Basal cisterns patent. The sulci non-effaced. There is opacification of left-sided mastoid air cells but this unchanged from the previous exam. There is opacification of left middle ear cavity this is also unchanged from the previous exam. The paranasal sinuses and the right mastoids are clear. No fracture deformity is apparent. CT cervical spine: There is degenerative narrowing of intervertebral disc spaces, facet arthrosis and endplate osteophytes with uncovertebral joint spurring on a chronic basis. There is slight retrolisthesis of just over 1 mm C3 on C4 and C4 on C5 accompanied by extensive degenerative change believed to be on degenerative basis itself. A fracture or dislocation is not identified and no acute or posttraumatic sequelae apparent. There is carotid atherosclerotic vascular calcifications. IMPRESSION: CT head: Chronic area of cystic encephalomalacia and compensatory asymmetric ventriculomegaly. Chronic or recurrent left-sided mastoid and middle ear opacification. No new or acute appearing abnormality. CT cervical spine: Spondylosis, facet arthrosis and degenerative changes result in slight grade 1 listhesis. However, no fracture or traumatic malalignment. Chronic atherosclerotic carotid vascular disease. Dictated by: Dictated on workstation # [id number]
[2017-10-01] MEDS ORDERED: LEVETIRACETAM INJECTION 1,000 MG in NS (IVPB) 100 ML IV STA (08:50)
[2017-10-01 10:10] VITALS: BP 129/73
[2017-10-01] MEDS ORDERED: ACETAMINOPHEN 500 MG TAB (TYLENOL) PO PRN (10:30)
[2017-10-01] MEDS ORDERED: ONDANSETRON 4 MG/2 ML (SDV) Z0FRAN IV PRN (10:30)
[2017-10-01] MEDS ORDERED: fentaNYL INJECTION 100 MCG/2 ML AMP IVP PRN (11:30)
--- NOTE | 2017-10-01 11:56 | History & Physical-Hospitalist ---
History of Present Illness HPI/Chief Complaint CC: Found down after presumed seizure HPI: This is a 76-year-old white female known to me from prior hospitalist service admission one month ago with a past medical history of seizure disorder and chronic renal failure not a hemodialysis candidate who was found down at the nights of [facility] for unknown amount of time ambulance was called and patient was found to have likely a post ictal state after suffering a seizure due to acute seizure on chronic seizure disorder. She was found to be in worsened renal failure and just overall status unable to return back home before rehydration and returned to baseline clinical functioning. Considering multiple admissions in her chronically debilitated state and found down on the floor unresponsive I would recommend patient be placed in a retirement instead of returning to [facility] considering high risk for further compromise and debility but unsure if that will be received well by the patient and the family. I review her labs adjust IV fluid rate and maintain Keppra IV and will reconcile home medications in preparation for disposition tomorrow. Source: RN/MD Exam Limitations: clinical condition (post-ictal state) Date Seen 10/01/17 Time Seen by Provider: 10:30 Attending Physician Greta Philippe DO PCP Reji Persaud DO Referring Physician Date of Admission Oct 01, 2017 at 09:00 Home Medications & Allergies Home Medications Reviewed patient Home Medication Reconciliation performed by pharmacy medication reconciliations claims technician and/or nursing. Patients Allergies have been reviewed. Allergies Allergies Coded Allergies No Known Drug Allergies (Unverified08/02/17) Past Vcalhsy-Gzjahx-Btjplv Hx Past Med/Social Hx: Reviewed Nursing Past Med/Soc Hx, Reviewed and Corrections made Patient Social History Marrital Status: single Employed/Student: retired Alcohol Use: Denies Use Recreational Drug Use: No Smoking Status: Never a Smoker Physical Abuse Screen: No Sexual Abuse: No Recent Foreign Travel: No Contact w/other who traveled: No Recent Hopitalizations: No Recent Infectious Disease Expo: No Immunizations Up To Date Tetanus Booster (TDap): Unknown Date of Pneumonia Vaccine: Jul 20, 2011 Date of Influenza Vaccine: Aug 07, 2017 Seasonal Allergies Seasonal Allergies: No Past Medical History Surgeries: Section, Hysterectomy Currently Using CPAP: No Currently Using BIPAP: No Cardiac: Hypertension Neurological: Dementia, Seizure Disorder Reproductive: No Sexually Transmitted Disease: No HIV/AIDS: No Hysterectomy Genitourinary: Renal Failure Gastrointestinal: Gastroesophageal Reflux, Chronic Diarrhea Musculoskeletal: Arthritis HEENT: Cataract Psychosocial: Anxiety History of Blood Disorders: No Family History Cardiovascular disease Completed stroke Hypertension Seizure disorder No Family History of: AIDS Sunil's disease Alcoholism Alzheimer's disease Aphasia Arthritis Asthma Cancer of mouth Cataracts Colon cancer Congenital disease Congenital heart disease Coronary thrombosis Cystic fibrosis Deafness or hearing loss Dementia Diabetes mellitus Drug abuse Dysphasia Fibrocystic disease of breast Gastroenteritis Glaucoma Headache disorder Hypercholesterolemia Infertility Kidney disease Myocardial infarction Neoplasm Not obtainable due to adoption Osteoporosis Parkinson's disease Prostate cancer Psychosocial problem Respiratory disorder Severe allergy Thyroid disease Tuberculosis Visual disorder CAD Over 55 Years Old, Hypertension Review of Systems ROS-Unable to Obtain: unable to ascertain since she is post-ictal and asleep Constitutional: see HPI Physical Exam Physical Exam Vital Signs Vital Signs - First Documented 10/01/17 10/01/17 07:46 10:10 Temp 95.6 Pulse 86 Resp 16 B/P (MAP) 113/95 (101) Pulse Ox 97 O2 Delivery Room Air O2 Flow Rate 2.00 Capillary Refill : Less Than 3 Seconds General Appearance: No Apparent Distress, WD/WN, Chronically ill, Other ( further declined since last assessed by this examiner) Eyes: Bilateral Eye Normal Inspection, Bilateral Eye PERRL Respiratory: Lungs Clear, Normal Breath Sounds, No Accessory Muscle Use, No Respiratory Distress Cardiovascular: Regular Rate, Rhythm, No Edema, No Gallop, No JVD, No Murmur, Normal Peripheral Pulses Gastrointestinal: Normal Bowel Sounds, No Organomegaly, No Pulsatile Mass, Soft Extremity: Normal Capillary Refill, Normal Inspection, Non Tender, No Calf Tenderness, No Pedal Edema Neurologic/Psychiatric: Other (patient is post-ictal and asleep) Skin: Normal Color, Warm/Dry Lymphatic: No Adenopathy Results Results/Procedures Labs Laboratory Tests 10/01/17 07:35 Patient resulted labs reviewed. Assessment/Plan Admission Diagnosis Assessment: Found down at night for [facility] unwitnessed but presumed seizure episode on chronic seizure disorder Worsened acute renal failure on chronic renal failure not a hemodialysis candidate Severe chronic debility I would recommend retirement placement instead of apartment without 24/7 care Dementia Admission Status: Observation Assessment and Plan Plan: IVF Monitor labs Home meds when awake Keppra IV Q 12 hours Needs NH placement Clinical Quality Measures DVT/VTE Risk/Contraindication: Risk Factor Score Per Nursin RFS Level Per Nursing on Admit: 4+=Very High GRETA PHILIPPE DO Oct 01, 2017 11:56
[2017-10-01 12:00] VITALS: BP 128/88
[2017-10-01 12:30] VITALS: BP 114/58
[2017-10-01] MEDS: 1/2 NS W/KCL 20 MEQ/L 1,000 ML IV SCH ×3 (13:52→23:17)
[2017-10-01] MEDS ORDERED: FURO40TA4 PO (15:16)
[2017-10-01] MEDS ORDERED: CLOP75TA28 PO (15:16)
[2017-10-01] MEDS ORDERED: PHEN30CA PO (15:16)
[2017-10-01] MEDS ORDERED: LEVE500T6 PO (15:16)
[2017-10-01 15:26] VITALS: BP 147/77
[2017-10-01 19:13] VITALS: BP 115/55
[2017-10-01] MEDS: LEVETIRACETAM INJECTION 1,000 MG in NS (IVPB) 100 ML IV SCH (21:13)
[2017-10-01] MEDS: meTOproloL SUCCINATE 50 MG (TOPROL XL) TAB PO SCH (21:53)
[2017-10-01] MEDS: SIMvastatin 20 MG (ZOCOR) TAB PO SCH (21:53)
[2017-10-01] MEDS: PHENYTOIN 30 MG PO SCH (22:08)
[2017-10-02 00:45] VITALS: BP 93/55
[2017-10-02 04:43] VITALS: BP 96/54
[2017-10-02] MEDS: PANTOPRAZOLE 20 MG TABLET (PROTONIX) PO SCH (06:02)
[2017-10-02 06:07] LABS: BASOPHILS % (AUTO) 1 % (0-10); EOSINOPHILS # (AUTO) 0.3 10^3/uL (0.0-0.3); EOSINOPHILS % (AUTO) 4 % (0-10); HEMATOCRIT 37 % (35-52); HEMOGLOBIN 11.8 G/DL (11.5-16.0); LYMPHOCYTES # (AUTO) 1.3 X 10^3 (1.0-4.0); LYMPHOCYTES % (AUTO) 20 % (12-44); MEAN CORPUSCULAR HEMOGLOBIN 32 PG (25-34); MEAN CORPUSCULAR HGB CONC 32 G/DL (32-36); MEAN CORPUSCULAR VOLUME 100 FL (80-99); MEAN PLATELET VOLUME 12.8 FL (7.4-10.4); MONOCYTES # (AUTO) 0.4 X 10^3 (0.0-1.0); MONOCYTES % (AUTO) 7 % (0-12); NEUTROPHILS # (AUTO) 4.6 X 10^3 (1.8-7.8); NEUTROPHILS % (AUTO) 69 % (42-75); PLATELET COUNT 192 10^3/uL (130-400); RED BLOOD COUNT 3.69 10^6/uL (4.35-5.85); RED CELL DISTRIBUTION WIDTH 15.6 % (10.0-14.5); WHITE BLOOD COUNT 6.6 10^3/uL (4.3-11.0)
[2017-10-02 06:32] LABS: ALBUMIN 3.6 GM/DL (3.2-4.5); BILIRUBIN,TOTAL 0.5 MG/DL (0.1-1.0); CALCIUM 7.4 MG/DL (8.5-10.1); CREATININE SERUM 2.46 MG/DL (0.60-1.30); POTASSIUM 4.7 MMOL/L (3.6-5.0); TOTAL PROTEIN 5.5 GM/DL (6.4-8.2)
[2017-10-02 08:00] VITALS: BP 100/58
--- NOTE | 2017-10-02 08:31 | Pulmonary Consultation ---
History of Present Illness History of Present Illness Date of Consultation 10/02/17 08:26 Date of Admission History of Present Illness 76yo WF with hx of seizure disorder, CKD, and multiple hospitalization presented via EMS after being found unresponsive on floor of apartment in [place]. Pt appeared to be post ictal and acute on chronic renal failure. Allergies and Home Medications Allergies Coded Allergies: No Known Drug Allergies (Unverified , 08/02/17) Home Medications Ascorbic Acid 1,000 Mg Tablet, 1,000 MG PO HS, (Reported) Aspirin 81 Mg Tablet.dr, 81 MG PO DAILY, (Reported) Calcium Carb/Magnesium Oxid/D3 1 Each Tablet, 1 TAB PO BID, (Reported) Cholecalciferol (Vitamin D3) 1,000 Unit Capsule, 1,000 UNIT PO DAILY, (Reported) Clopidogrel Bisulfate 75 Mg Tablet, 75 MG PO DAILY, (Reported) Furosemide 40 Mg Tablet, 40 MG PO DAILY, (Reported) Levetiracetam 500 Mg Tablet, 500 MG PO DAILY, (Reported) Levothyroxine Sodium 150 Mcg Tablet, 300 MCG PO DAILY, (Reported) TAKES 2 (150MCG) TABLETS Magnesium Oxide 500 Mg Capsule, 500 MG PO DAILY, (Reported) Metoprolol Succinate 50 Mg Tab.er.24h, 50 MG PO BID, (Reported) Multivits Min/Iron/FA/Herb#186 1 Each Tablet, 1 TAB PO DAILY, (Reported) Omeprazole 20 Mg Capsule.dr, 20 MG PO DAILY, (Reported) Phenytoin Sodium Extended 30 Mg Capsule, 30 MG PO BID, (Reported) Simvastatin 20 Mg Tablet, 20 MG PO HS, (Reported) Vitamin B Complex & Vit C No.4 150 Mg Tablet, 150 MG PO DAILY, (Reported) Past Eempuog-Cwchaf-Mqlsna Hx Patient Social History Alcohol Use: Denies Use Recreational Drug Use: No Smoking Status: Never a Smoker Recent Foreign Travel: No Contact w/Someone Who Travel: No Recent Infectious Disease Expo: No Recent Hopitalizations: No Immunizations Up To Date Tetanus Booster (TDap): Unknown Date of Pneumonia Vaccine: Jul 20, 2011 Date of Influenza Vaccine: Aug 07, 2017 Seasonal Allergies Seasonal Allergies: No Surgeries History of Surgeries: Yes (GASTRIC BYPASS) Surgeries: Section, Hysterectomy Respiratory History of Respiratory Disorde: Yes Respiratory Disorders: Asthma, Pneumonia Currently Using CPAP: No Currently Using BIPAP: No Cardiovascular History of Cardiac Disorders: Yes (pacemaker) Cardiac Disorders: Hypertension Neurological History of Neurological Disord: Yes Neurological Disorders: Dementia, Seizure Disorder Reproductive System Hx Reproductive Disorders: No Sexually Transmitted Disease: No HIV/AIDS: No ACTIVE DIRECTORY SPECIALIST History: Hysterectomy Genitourinary History of Genitourinary Disor: No Genitourinary Disorders: Renal Failure Gastrointestinal History of Gastrointestinal Di: Yes Gastrointestinal Disorders: Gastroesophageal Reflux, Chronic Diarrhea Musculoskeletal History of Musculoskeletal Dis: No Musculoskeletal Disorders: Arthritis Endocrine History of Endocrine Disorders: Yes HEENT History of HEENT Disorders: Yes HEENT Disorders: Cataract Cancer History of Cancer: No Psychosocial History of Psychiatric Problem: Yes Behavioral Health Disorders: Anxiety Integumentary History of Skin or Integumenta: No Blood Transfusions History of Blood Disorders: No Family Medical History Significant Family History: CAD Over 55 Years Old, Hypertension Family Medial History: Cardiovascular disease Completed stroke Hypertension Seizure disorder No Family History of: AIDS Sunil's disease Alcoholism Alzheimer's disease Aphasia Arthritis Asthma Cancer of mouth Cataracts Colon cancer Congenital disease Congenital heart disease Coronary thrombosis Cystic fibrosis Deafness or hearing loss Dementia Diabetes mellitus Drug abuse Dysphasia Fibrocystic disease of breast Gastroenteritis Glaucoma Headache disorder Hypercholesterolemia Infertility Kidney disease Myocardial infarction Neoplasm Not obtainable due to adoption Osteoporosis Parkinson's disease Prostate cancer Psychosocial problem Respiratory disorder Severe allergy Thyroid disease Tuberculosis Visual disorder Exam Exam Vital Signs Date Time Temp Pulse Resp B/P (MAP) Pulse Ox O2 Delivery O2 Flow Rate FiO2 10/02/17 08:00 97.0 67 20 100/58 (72) 97 Nasal Cannula 2.00 10/02/17 04:43 97.4 71 18 96/54 (68) 94 Nasal Cannula 2.00 10/02/17 00:45 97.1 88 18 93/55 (68) 93 Nasal Cannula 2.00 10/01/17 21:54 Nasal Cannula 2.00 10/01/17 20:00 Nasal Cannula 2.00 10/01/17 20:00 Nasal Cannula 2.00 10/01/17 19:13 97.7 81 18 115/55 (75) 94 Nasal Cannula 2.00 10/01/17 15:26 96.2 72 22 147/77 (100) 99 Nasal Cannula 2.00 10/01/17 12:30 97.3 76 18 114/58 (76) 98 Nasal Cannula 2.00 10/01/17 12:00 97.8 88 18 128/88 (101) 95 Nasal Cannula 2.00 10/01/17 11:14 Nasal Cannula 95.00 10/01/17 10:10 96.0 81 20 129/73 (91) 95 Nasal Cannula 2.00 10/01/17 10:01 95.6 82 16 118/92 (101) 97 I & O 10/02/17 07:00 Intake Total 5320 ml Output Total 1500 ml Balance 3820 ml General Appearance: No Apparent Distress, WD/WN, Chronically ill, Other ( further declined since last assessed by this examiner) Respiratory: Lungs Clear, Normal Breath Sounds, No Accessory Muscle Use, No Respiratory Distress Cardiovascular: Regular Rate, Rhythm, No Edema, No Gallop, No JVD, No Murmur, Normal Peripheral Pulses Capillary Refill: Less Than 3 Seconds Peripheral Pulses: 2+ Radial Pulses (R), 2+ Radial Pulses (L) Gastrointestinal: normal bowel sounds, non tender, soft, no organomegaly Extremity: Normal Capillary Refill, Normal Inspection, Non Tender, No Calf Tenderness, No Pedal Edema Neurologic/Psychiatric: Other (patient is post-ictal and asleep) Skin: Normal Color, Warm/Dry Lymphatic: No Adenopathy Results Lab Laboratory Tests 10/01/17 07:35 10/02/17 05:59 Assessment/Plan Assessment/Plan Syncope probably secondary to seizure disorder -Continue Keppra Acute on chronic Kidney failure with metabolic acidosis -Check ABG, LA- normal -Give 2 amps of Bicarb after ABG -Monitor UO Severe debility Dementia 254 RIYA DILLARD DO Oct 02, 2017 08:31
[2017-10-02] MEDS: LEVETIRACETAM INJECTION 1,000 MG in NS (IVPB) 100 ML IV SCH (08:51)
[2017-10-02] MEDS: meTOproloL SUCCINATE 50 MG (TOPROL XL) TAB PO SCH ×2 (08:52→21:24)
[2017-10-02] MEDS: CLOPIDOGREL 75 MG (PLAVIX) TABLET PO SCH (08:52)
[2017-10-02] MEDS: FUROSEMIDE 40 MG (LASIX) TAB PO SCH (08:52)
[2017-10-02] MEDS: LEVOTHYROXINE 150 MCG (LEVOTHROID) TAB PO SCH (08:52)
[2017-10-02] MEDS: ASPIRIN E.C. 81 MG (ECOTRIN) TAB PO SCH (08:52)
[2017-10-02] MEDS ORDERED: OMEPRAZOLE 20 MG (PriLOSEC) CAP NON-FORMULARY PO SCH (09:00)
[2017-10-02] MEDS ORDERED: SODIUM BICARB 8.4% 50 MEQ/50 ML (ABBOTT) SYR IV NR (09:15)
[2017-10-02] MEDS: LEVETIRACETAM 500 MG (KEPPRA) TAB PO SCH (10:02)
[2017-10-02] MEDS: PHENYTOIN 30 MG PO SCH ×3 (10:03→21:24)
[2017-10-02] MEDS: 1/2 NS W/KCL 20 MEQ/L 1,000 ML IV SCH (10:30)
--- NOTE | 2017-10-02 11:48 | Progress Note-Hospitalist ---
Subjective HPI/CC On Admission Date Seen by Provider: Oct 02, 2017 Time Seen by Provider: 11:30 CC: Found down after presumed seizure HPI: This is a 76-year-old white female known to me from prior hospitalist service admission one month ago with a past medical history of seizure disorder and chronic renal failure not a hemodialysis candidate who was found down at the nights of [facility] for unknown amount of time ambulance was called and patient was found to have likely a post ictal state after suffering a seizure due to acute seizure on chronic seizure disorder. She was found to be in worsened renal failure and just overall status unable to return back home before rehydration and returned to baseline clinical functioning. Considering multiple admissions in her chronically debilitated state and found down on the floor unresponsive I would recommend patient be placed in a halfway instead of returning to [facility] considering high risk for further compromise and debility but unsure if that will be received well by the patient and the family. I review her labs adjust IV fluid rate and maintain Keppra IV and will reconcile home medications in preparation for disposition tomorrow. Subjective/Events-last exam States she is doing well today. No complaints or concerns. Discussed her medications and she denies misses any doses. She manages her own medicines. When asked what medications she takes and how often she said "Honey don't do that to me." She was unable to tell me if she takes her medicines once or twice a day. She does not know when she took her last dose. She knows she was found unresponsive in her apartment. Focused Exam Evaluation Lactate Level Laboratory Tests 10/02/17 07:07: Lactic Acid Level 0.60 Objective Exam Vital Signs Vital Signs Date Time Temp Pulse Resp B/P (MAP) Pulse Ox O2 Delivery O2 Flow Rate FiO2 10/01/17 07:46 95.6 86 16 113/95 (101) 97 Room Air 10/01/17 10:10 2.00 Capillary Refill : Less Than 3 Seconds General Appearance: No Apparent Distress, WD/WN, Chronically ill Respiratory: Lungs Clear, Normal Breath Sounds Cardiovascular: Regular Rate, Rhythm, No Murmur Gastrointestinal: Normal Bowel Sounds, Non Tender, Soft Extremity: Non Tender, No Calf Tenderness, Swelling (of left lower extremity) Neurologic/Psychiatric: Alert, Oriented x3 Results/Procedures Lab Laboratory Tests 10/02/17 05:59 10/02/17 12:29 Patient resulted labs reviewed. Assessment/Plan Assessment and Plan Assess & Plan/Chief Complaint seizure Diagnosis/Problems Diagnosis/Problems (1) Metabolic acidosis Status: Acute Assessment & Plan: Likely due to worsening CKD s/p 2 amps of bicarb this AM Will recheck BMP as refuses ABG to check pH Will likely need oral bicarb at discharge (2) Seizure disorder Status: Acute Assessment & Plan: Likely missed doses Will resume home medications and DC IV Keppra Seizure Precautions (3) Chronic renal failure Status: Acute Assessment & Plan: Continue to monitor At baseline Will likely need oral bicarb at DC Qualifiers: Chronic kidney disease stage: stage 4 (severe) Qualified Codes: N18.4 - Chronic kidney disease, stage 4 (severe) (4) Hypothyroidism Status: Chronic Assessment & Plan: Continue synthroid Qualifiers: Hypothyroidism type: unspecified Qualified Codes: E03.9 - Hypothyroidism, unspecified (5) CAD (coronary artery disease) Status: Chronic Assessment & Plan: Continue ASA and Plavix (6) Discharge planning issues Assessment & Plan: Was to DC to SNF during last admission Advised her to DC to SNF if able but will need halfway care after that as she is not managing her medications well (7) Prophylactic measure Assessment & Plan: Heparin Reg Diet Saline lock Clinical Quality Measures DVT/VTE Risk/Contraindication: Risk Factor Score Per Nursin RFS Level Per Nursing on Admit: 4+=Very High ROSARIO ESCOBAR MD Oct 02, 2017 11:48 am
[2017-10-02 12:00] VITALS: BP 100/53
[2017-10-02] MEDS ORDERED: PATIENT MAY USE OWN MED,SINGLE MED PO SCH (12:00)
[2017-10-02 13:05] LABS: CALCIUM 7.5 MG/DL (8.5-10.1); CREATININE SERUM 2.48 MG/DL (0.60-1.30)
--- NOTE | 2017-10-02 14:48 | Diagnostic Imaging Report ---
PROCEDURE: US left lower extremity venous. TECHNIQUE: Multiple real-time grayscale images were obtained over the left lower extremity in various projections. Additional duplex Doppler and color Doppler images were also obtained. INDICATION: Left leg edema. FINDINGS: The left common femoral femoral and popliteal veins demonstrate normal response to compression, augmentation and Valsalva. There is a Hatfield's cyst in the popliteal fossa measuring 4.1 x 1.5 x 2.6 cm. There are no other lower extremity fluid collections or masses. IMPRESSION: No evidence of deep venous thrombosis in the left lower extremity. Hatfield's cyst. Dictated by: Dictated on workstation # [id number]
[2017-10-02 16:00] VITALS: BP 108/59
[2017-10-02 20:08] VITALS: BP 109/59
[2017-10-02] MEDS: SIMvastatin 20 MG (ZOCOR) TAB PO SCH (21:24)
[2017-10-03 00:01] VITALS: BP 98/59
[2017-10-03 03:56] VITALS: BP 95/58
[2017-10-03] MEDS: PANTOPRAZOLE 20 MG TABLET (PROTONIX) PO SCH (06:02)
[2017-10-03 08:00] VITALS: BP 91/59
--- NOTE | 2017-10-03 08:20 | Pulmonary Progress Note ---
Subjective Time Seen by Provider: 08:20 Subjective/Events-last exam No complications noted. Focused Exam Evaluation Lactate Level Laboratory Tests 10/02/17 07:07: Lactic Acid Level 0.60 Exam Exam Vital Signs Date Time Temp Pulse Resp B/P (MAP) Pulse Ox O2 Delivery O2 Flow Rate FiO2 10/03/17 03:56 97.8 73 17 95/58 (70) 93 Nasal Cannula 2.00 10/03/17 00:01 98.6 83 19 98/59 (72) 92 Nasal Cannula 2.00 10/02/17 21:00 Nasal Cannula 2.00 10/02/17 20:08 98.4 81 22 109/59 (76) 91 Nasal Cannula 2.00 10/02/17 16:00 98.1 77 18 108/59 (75) 93 Nasal Cannula 2.00 10/02/17 12:00 98.1 74 20 100/53 (69) 93 Nasal Cannula 2.00 10/02/17 09:00 Nasal Cannula 2.00 I & O 10/03/17 07:00 Intake Total 2860 ml Output Total 630 ml Balance 2230 ml General Appearance: No Apparent Distress, WD/WN, Chronically ill Respiratory: Lungs Clear, Normal Breath Sounds Cardiovascular: Regular Rate, Rhythm, No Murmur Capillary Refill: Less Than 3 Seconds Peripheral Pulses: 2+ Radial Pulses (R), 2+ Radial Pulses (L) Gastrointestinal: normal bowel sounds, non tender, soft, no organomegaly Extremity: Non Tender, No Calf Tenderness, Swelling Neurologic/Psychiatric: Alert, Oriented x3 Skin: Normal Color, Warm/Dry Lymphatic: No Adenopathy Results Lab Laboratory Tests 10/02/17 05:59 10/02/17 12:29 Assessment/Plan Assessment/Plan Syncope probably secondary to seizure disorder -Continue Kera Acute on chronic Kidney failure with metabolic acidosis -Check ABG, LA- normal -Give 2 amps of Bicarb after ABG -Monitor UO Severe debility Dementia 232 RIYA DILLADR DO Oct 03, 2017 08:20
[2017-10-03] MEDS: FUROSEMIDE 40 MG (LASIX) TAB PO SCH (09:05)
[2017-10-03] MEDS: PHENYTOIN 30 MG PO SCH ×2 (09:05→20:58)
[2017-10-03] MEDS: meTOproloL SUCCINATE 50 MG (TOPROL XL) TAB PO SCH (09:05)
[2017-10-03] MEDS: ASPIRIN E.C. 81 MG (ECOTRIN) TAB PO SCH (09:05)
[2017-10-03] MEDS: CLOPIDOGREL 75 MG (PLAVIX) TABLET PO SCH (09:05)
[2017-10-03] MEDS: LEVOTHYROXINE 150 MCG (LEVOTHROID) TAB PO SCH (09:05)
[2017-10-03] MEDS: LEVETIRACETAM 500 MG (KEPPRA) TAB PO SCH (09:06)
[2017-10-03 12:00] VITALS: BP 87/51
[2017-10-03 12:09] LABS: CALCIUM 7.3 MG/DL (8.5-10.1); CREATININE SERUM 3.05 MG/DL (0.60-1.30); POTASSIUM 3.6 MMOL/L (3.6-5.0)
[2017-10-03] MEDS: SODIUM BICARBONATE 650 MG TABLET (NON-FORMULARY) PO SCH ×2 (14:37→20:58)
--- NOTE | 2017-10-03 14:43 | Progress Note-Hospitalist ---
Subjective HPI/CC On Admission Time Seen by Provider: 14:00 CC: Found down after presumed seizure HPI: This is a 76-year-old white female known to me from prior hospitalist service admission one month ago with a past medical history of seizure disorder and chronic renal failure not a hemodialysis candidate who was found down at the nights of [facility] for unknown amount of time ambulance was called and patient was found to have likely a post ictal state after suffering a seizure due to acute seizure on chronic seizure disorder. She was found to be in worsened renal failure and just overall status unable to return back home before rehydration and returned to baseline clinical functioning. Considering multiple admissions in her chronically debilitated state and found down on the floor unresponsive I would recommend patient be placed in a [facility] instead of returning to [facility] a [facility] considering high risk for further compromise and debility but unsure if that will be received well by the patient and the family. I review her labs adjust IV fluid rate and maintain Keppra IV and will reconcile home medications in preparation for disposition tomorrow. Subjective/Events-last exam Pt reports doing ok. States she feels well. Eating and drinking well. No complaints regarding UOP or BMs. Denies pain. Focused Exam Evaluation Lactate Level Laboratory Tests 10/02/17 07:07: Lactic Acid Level 0.60 Objective Exam Vital Signs Vital Signs Date Time Temp Pulse Resp B/P (MAP) Pulse Ox O2 Delivery O2 Flow Rate FiO2 10/01/17 07:46 95.6 86 16 113/95 (101) 97 Room Air 10/01/17 10:10 2.00 Capillary Refill : Less Than 3 Seconds General Appearance: No Apparent Distress, Chronically ill Respiratory: Lungs Clear, No Accessory Muscle Use, No Respiratory Distress Cardiovascular: Regular Rate, Rhythm, No Murmur Gastrointestinal: Normal Bowel Sounds, Non Tender, Soft Extremity: Non Tender, No Calf Tenderness, No Pedal Edema Neurologic/Psychiatric: Alert, Oriented x3 Results/Procedures Lab Laboratory Tests 10/03/17 11:47 Patient resulted labs reviewed. Assessment/Plan Assessment and Plan Assess & Plan/Chief Complaint seizure Diagnosis/Problems Diagnosis/Problems (1) Metabolic acidosis Status: Acute Assessment & Plan: Likely due to worsening CKD s/p 2 amps of bicarb this AM Will start on oral bicarb given drop again today (2) Seizure disorder Status: Acute Assessment & Plan: Likely missed doses though she denies this Will resume home medications and DC IV Keppra Seizure Precautions (3) Chronic renal failure Status: Acute Assessment & Plan: Continue to monitor At baseline Oral bicarb added Qualifiers: Chronic kidney disease stage: stage 4 (severe) Qualified Codes: N18.4 - Chronic kidney disease, stage 4 (severe) (4) Hypothyroidism Status: Chronic Assessment & Plan: Continue synthroid tsh >120- likely missing doses as well but denies this adamantly Qualifiers: Hypothyroidism type: unspecified Qualified Codes: E03.9 - Hypothyroidism, unspecified (5) CAD (coronary artery disease) Status: Chronic Assessment & Plan: Continue ASA and Plavix (6) Discharge planning issues Assessment & Plan: Was to DC to SNF during last admission Advised her to DC to SNF if able but will need ferry terminal agent care after that as she is not managing her medications well She declines and states she will never go to a NH. I expressed my concerns about her safety at home and that she could ultimately due to missed medications. She verbalized understanding but again refsued any NH placement (7) Prophylactic measure Assessment & Plan: Heparin Reg Diet Saline lock Clinical Quality Measures DVT/VTE Risk/Contraindication: Risk Factor Score Per Nursin RFS Level Per Nursing on Admit: 4+=Very High ROSARIO ESCOBAR MD Oct 03, 2017 14:43
[2017-10-03 15:37] VITALS: BP 93/53
[2017-10-03 19:31] VITALS: BP 97/55
[2017-10-03] MEDS: SIMvastatin 20 MG (ZOCOR) TAB PO SCH (20:58)
[2017-10-04] VITALS (7 sets, daily range): BP systolic 90–105; BP diastolic 51–63
[2017-10-04 05:55] LABS: BASOPHILS % (AUTO) 0 % (0-10); EOSINOPHILS # (AUTO) 0.5 10^3/uL (0.0-0.3); EOSINOPHILS % (AUTO) 6 % (0-10); HEMATOCRIT 36 % (35-52); HEMOGLOBIN 11.3 G/DL (11.5-16.0); LYMPHOCYTES # (AUTO) 1.8 X 10^3 (1.0-4.0); LYMPHOCYTES % (AUTO) 23 % (12-44); MEAN CORPUSCULAR HEMOGLOBIN 33 PG (25-34); MEAN CORPUSCULAR HGB CONC 32 G/DL (32-36); MEAN CORPUSCULAR VOLUME 104 FL (80-99); MEAN PLATELET VOLUME 13.5 FL (7.4-10.4); MONOCYTES # (AUTO) 0.7 X 10^3 (0.0-1.0); MONOCYTES % (AUTO) 9 % (0-12); NEUTROPHILS # (AUTO) 4.8 X 10^3 (1.8-7.8); NEUTROPHILS % (AUTO) 62 % (42-75); PLATELET COUNT 147 10^3/uL (130-400); RED BLOOD COUNT 3.46 10^6/uL (4.35-5.85); RED CELL DISTRIBUTION WIDTH 16.2 % (10.0-14.5); WHITE BLOOD COUNT 7.7 10^3/uL (4.3-11.0)
[2017-10-04] MEDS: PANTOPRAZOLE 20 MG TABLET (PROTONIX) PO SCH (06:01)
[2017-10-04 06:05] LABS: CALCIUM 7.1 MG/DL (8.5-10.1); CREATININE SERUM 3.24 MG/DL (0.60-1.30); POTASSIUM 4.2 MMOL/L (3.6-5.0)
--- NOTE | 2017-10-04 06:31 | Pulmonary Progress Note ---
Subjective Time Seen by Provider: 06:30 Subjective/Events-last exam No complications noted. Focused Exam Evaluation Lactate Level Laboratory Tests 10/02/17 07:07: Lactic Acid Level 0.60 Exam Exam Vital Signs Date Time Temp Pulse Resp B/P (MAP) Pulse Ox O2 Delivery O2 Flow Rate FiO2 10/04/17 03:38 98.4 79 16 90/51 (64) 92 Nasal Cannula 2.00 10/04/17 00:00 98.6 70 16 95/56 (69) 91 Nasal Cannula 2.00 10/03/17 21:00 Nasal Cannula 2.00 10/03/17 19:31 98.4 79 18 97/55 (69) 93 Nasal Cannula 2.00 10/03/17 15:37 98.3 83 18 93/53 (66) 97 Nasal Cannula 2.00 10/03/17 12:00 97.6 69 16 87/51 (63) 94 Nasal Cannula 2.00 10/03/17 09:00 Nasal Cannula 2.00 10/03/17 08:00 96.7 82 16 91/59 (70) 94 Nasal Cannula 2.00 I & O 10/04/17 07:00 Intake Total 1900 ml Output Total 560 ml Balance 1340 ml General Appearance: No Apparent Distress, WD/WN, Chronically ill Respiratory: Lungs Clear, Normal Breath Sounds Cardiovascular: Regular Rate, Rhythm, No Murmur Capillary Refill: Less Than 3 Seconds Peripheral Pulses: 2+ Radial Pulses (R), 2+ Radial Pulses (L) Gastrointestinal: normal bowel sounds, non tender, soft, no organomegaly Extremity: Non Tender, No Calf Tenderness, Swelling Neurologic/Psychiatric: Alert, Oriented x3 Skin: Normal Color, Warm/Dry Lymphatic: No Adenopathy Results Lab Laboratory Tests 10/02/17 12:29 10/03/17 11:47 10/04/17 05:41 Assessment/Plan Assessment/Plan Syncope probably secondary to seizure disorder -Continue Keppra Acute on chronic Kidney failure with metabolic acidosis -renal function is worsening -D/C lasix and start IVF LR 100cc/hr -Monitor UO -PO Bicarb -pt refused ABG Severe debility Dementia 232 RIYA DILLARD DO Oct 04, 2017 06:31
[2017-10-04] MEDS: LACTATED RINGERS 1,000 ML IV SCH ×2 (07:42→17:41)
[2017-10-04] MEDS: LEVETIRACETAM 500 MG (KEPPRA) TAB PO SCH (08:49)
[2017-10-04] MEDS: SODIUM BICARBONATE 650 MG TABLET (NON-FORMULARY) PO SCH ×3 (08:49→21:49)
[2017-10-04] MEDS: PHENYTOIN 30 MG PO SCH ×2 (08:49→21:49)
[2017-10-04] MEDS: CLOPIDOGREL 75 MG (PLAVIX) TABLET PO SCH (08:49)
[2017-10-04] MEDS: ASPIRIN E.C. 81 MG (ECOTRIN) TAB PO SCH (08:50)
[2017-10-04] MEDS: LEVOTHYROXINE 150 MCG (LEVOTHROID) TAB PO SCH (08:50)
--- NOTE | 2017-10-04 09:43 | Progress Note-Hospitalist ---
Subjective HPI/CC On Admission Date Seen by Provider: Oct 04, 2017 (n) Time Seen by Provider: 09:38 CC: Found down after presumed seizure HPI: This is a 76-year-old white female known to me from prior hospitalist service admission one month ago with a past medical history of seizure disorder and chronic renal failure not a hemodialysis candidate who was found down at the nights of [facility] for unknown amount of time ambulance was called and patient was found to have likely a post ictal state after suffering a seizure due to acute seizure on chronic seizure disorder. She was found to be in worsened renal failure and just overall status unable to return back home before rehydration and returned to baseline clinical functioning. Considering multiple admissions in her chronically debilitated state and found down on the floor unresponsive I would recommend patient be placed in a detention instead of returning to [facility] considering high risk for further compromise and debility but unsure if that will be received well by the patient and the family. I review her labs adjust IV fluid rate and maintain Keppra IV and will reconcile home medications in preparation for disposition tomorrow. Subjective/Events-last exam Pt reports feeling well. Eating and drinking well. No pain. Discussed labs. Does not feel any worse with worsening labs. Does not have provider relations manager and does not want one. States she would never want dialysis as well. Focused Exam Evaluation Lactate Level Laboratory Tests 10/02/17 07:07: Lactic Acid Level 0.60 Objective Exam Vital Signs Vital Signs Date Time Temp Pulse Resp B/P (MAP) Pulse Ox O2 Delivery O2 Flow Rate FiO2 10/01/17 07:46 95.6 86 16 113/95 (101) 97 Room Air 10/01/17 10:10 2.00 Capillary Refill : Less Than 3 Seconds General Appearance: No Apparent Distress, Chronically ill Respiratory: Lungs Clear, No Respiratory Distress Cardiovascular: Regular Rate, Rhythm, No Murmur Gastrointestinal: Normal Bowel Sounds, Non Tender, Soft Extremity: No Calf Tenderness, No Pedal Edema Neurologic/Psychiatric: Alert, Oriented x3, Normal Mood/Affect Skin: Normal Color, Warm/Dry Results/Procedures Lab Laboratory Tests 10/03/17 11:47 10/04/17 05:41 Patient resulted labs reviewed. Assessment/Plan Assessment and Plan Assess & Plan/Chief Complaint seizure Diagnosis/Problems Diagnosis/Problems (1) Metabolic acidosis Status: Acute Assessment & Plan: Likely due to worsening CKD Worsened again despite oral bicarb Started on LR for worsening creatinine as well Trend (2) Seizure disorder Status: Acute Assessment & Plan: Likely missed doses though she denies this Will resume home medications and DC IV Keppra Seizure Precautions (3) Chronic renal failure Status: Acute Assessment & Plan: Continue to monitor Creatinine worsening today Oral bicarb added Interested in palliative care consult but not ready for hospice Qualifiers: Chronic kidney disease stage: stage 4 (severe) Qualified Codes: N18.4 - Chronic kidney disease, stage 4 (severe) (4) Hypothyroidism Status: Chronic Assessment & Plan: Continue Synthroid tsh >120- likely missing doses as well but denies this adamantly Qualifiers: Hypothyroidism type: unspecified Qualified Codes: E03.9 - Hypothyroidism, unspecified (5) CAD (coronary artery disease) Status: Chronic Assessment & Plan: Continue ASA and Plavix (6) Discharge planning issues Assessment & Plan: Was to DC to SNF during last admission Advised her to DC to SNF if able but will need correction care after that as she is not managing her medications well She declines and states she will never go to a NH. I expressed my concerns about her safety at home and that she could ultimately due to missed medications. She verbalized understanding but again refused any NH placement (7) Prophylactic measure Assessment & Plan: Heparin Low Na diet Saline lock Clinical Quality Measures DVT/VTE Risk/Contraindication: Risk Factor Score Per Nursin RFS Level Per Nursing on Admit: 4+=Very High ROSARIO ESCOBAR MD Oct 04, 2017 09:43
[2017-10-04] MEDS: SIMvastatin 20 MG (ZOCOR) TAB PO SCH (21:49)
[2017-10-05] MEDS: LACTATED RINGERS 1,000 ML IV SCH (03:52)
[2017-10-05 04:00] VITALS: BP 114/57
[2017-10-05] MEDS: PANTOPRAZOLE 20 MG TABLET (PROTONIX) PO SCH (06:04)
[2017-10-05 08:00] VITALS: BP 94/61
[2017-10-05] MEDS: ASPIRIN E.C. 81 MG (ECOTRIN) TAB PO SCH (08:59)
[2017-10-05] MEDS: CLOPIDOGREL 75 MG (PLAVIX) TABLET PO SCH (08:59)
[2017-10-05] MEDS: PHENYTOIN 30 MG PO SCH ×2 (08:59→21:19)
[2017-10-05] MEDS: LEVOTHYROXINE 150 MCG (LEVOTHROID) TAB PO SCH (08:59)
[2017-10-05] MEDS: LEVETIRACETAM 500 MG (KEPPRA) TAB PO SCH (08:59)
[2017-10-05] MEDS: SODIUM BICARBONATE 650 MG TABLET (NON-FORMULARY) PO SCH ×3 (08:59→21:19)
--- NOTE | 2017-10-05 11:36 | Progress Note-Hospitalist ---
Subjective HPI/CC On Admission Date Seen by Provider: Oct 05, 2017 Time Seen by Provider: 11:31 CC: Found down after presumed seizure HPI: This is a 76-year-old white female known to me from prior hospitalist service admission one month ago with a past medical history of seizure disorder and chronic renal failure not a hemodialysis candidate who was found down at the nights of [facility] for unknown amount of time ambulance was called and patient was found to have likely a post ictal state after suffering a seizure due to acute seizure on chronic seizure disorder. She was found to be in worsened renal failure and just overall status unable to return back home before rehydration and returned to baseline clinical functioning. Considering multiple admissions in her chronically debilitated state and found down on the floor unresponsive I would recommend patient be placed in a [facility] instead of returning to [facility] considering high risk for further compromise and debility but unsure if that will be received well by the patient and the family. I review her labs adjust IV fluid rate and maintain Keppra IV and will reconcile home medications in preparation for disposition tomorrow. Subjective/Events-last exam Pt reports feeling well. No complaints. Refused labs this morning per discussion with coil maker. She does not recall this. She is agreeable to labs now. Just got lunch tray and is hungry. No abd pain. Tolerating meals well. Objective Exam Vital Signs Vital Signs Date Time Temp Pulse Resp B/P (MAP) Pulse Ox O2 Delivery O2 Flow Rate FiO2 10/01/17 07:46 95.6 86 16 113/95 (101) 97 Room Air 10/01/17 10:10 2.00 Capillary Refill : Less Than 3 Seconds General Appearance: No Apparent Distress, WD/WN Respiratory: Lungs Clear, No Respiratory Distress Cardiovascular: Regular Rate, Rhythm, No Murmur Gastrointestinal: Normal Bowel Sounds, Non Tender, Soft Extremity: No Calf Tenderness Neurologic/Psychiatric: Other (alert and oriented but poor short term recall) Skin: Normal Color, Warm/Dry Results/Procedures Lab Patient resulted labs reviewed. Assessment/Plan Assessment and Plan Assess & Plan/Chief Complaint seizure Diagnosis/Problems Diagnosis/Problems (1) Metabolic acidosis Status: Acute Assessment & Plan: Likely due to worsening CKD Worsened again despite oral bicarb Refused labs this AM but agreeable now Will attempt to draw to monitor acidosis (2) Seizure disorder Status: Acute Assessment & Plan: Likely missed doses though she denies this Continue home meds Seizure Precautions (3) Chronic renal failure Status: Acute Assessment & Plan: Continue to monitor Creatinine worsened yesterday, labs to be done still today Continue Oral bicarb Interested in palliative care consult but not ready for hospice Palliative nurse consulted for education I called and spoke with son as well about this and my concerns regarding her health, he understands and will be here Monday Discussed other options of treatment and she states she does not want to see a machine stuffer automatic or ever be on dialysis Qualifiers: Chronic kidney disease stage: stage 4 (severe) Qualified Codes: N18.4 - Chronic kidney disease, stage 4 (severe) (4) Hypothyroidism Status: Chronic Assessment & Plan: Continue Synthroid tsh >120- likely missing doses as well but denies this adamantly Qualifiers: Hypothyroidism type: unspecified Qualified Codes: E03.9 - Hypothyroidism, unspecified (5) CAD (coronary artery disease) Status: Chronic Assessment & Plan: Continue ASA and Plavix (6) Discharge planning issues Assessment & Plan: Was to DC to SNF during last admission Advised her to DC to SNF if able but will need long-term care after that as she is not managing her medications well She declines and states she will never go to a NH. I expressed my concerns about her safety at home and that she could ultimately due to missed medications. She verbalized understanding but again refused any NH placement (7) Prophylactic measure Assessment & Plan: Heparin Low Na diet Saline lock Clinical Quality Measures DVT/VTE Risk/Contraindication: Risk Factor Score Per Nursin RFS Level Per Nursing on Admit: 4+=Very High ROSARIO ESCOBAR MD Oct 05, 2017 11:36
[2017-10-05 12:00] VITALS: BP 126/67
[2017-10-05 12:27] LABS: CALCIUM 7.1 MG/DL (8.5-10.1); CREATININE SERUM 2.94 MG/DL (0.60-1.30)
--- NOTE | 2017-10-05 15:33 | Physical Therapy Evaluation ---
PT Evaluation-General Medical Diagnosis Admission Date Oct 02, 2017 at 11:32 Medical Diagnosis: seizures Onset Date: Oct 01, 2017 Therapy Diagnosis Therapy Diagnosis: impaired mobility, strength, endurance, balance Height/Weight Height (Feet): 5 Height (Inches): 2.00 Weight (Pounds): 128 Weight (Ounces): 0.0 Precautions Precautions/Isolations: Seizure, Fall Prevention Weight Bear Status Right Lower Extremity: Right Weight Bearing/Tolerated Left Lower Extremity: Left Weight Bearing/Tolerated Referral Physician: Bruna Diaz MD Reason for Referral: Evaluation/Treatment Medical History Pertinent Medical History: CAD, CVA, Dementia, GERD, Heart Failure, HTN, Hypothroidism, [place] Additional Medical History seizures, gastric bypass, pacemaker, cataracts, anxiety, asthma, pneumonia, chronic diarrhea, hypothyroidism Reviewed History: Yes Social History Home: Apartment Current Living Status: Alone Entry Into Home: Level Entry Patient lives on the second floor of an apartment building, she takes the elevator Prior/Core FIM Prior Level of Function Functional [place] Measure 0=Not Assessed/NA 4=Minimal Assistance 1=Total Assistance 5=Supervision or Setup 2=Maximal Assistance 6=Modified [place] 3=Moderate Assistance 7=Complete [place] Bed Mobility: 6 Transfers (B,C,W/C) (FIM): 6 Gait: 6 Patient states she used a rolling walker for ambulation PT Evaluation-Current Subjective Patient in bed pre tx, agrees to PT, no complaints of pain. Pt/Family Goals Patient in bed post tx with nurse call, phone, tray, bed alarm on. Objective Patient Orientation: Person, Confused ROM/Strength ROM Lower Extremities WNL Strength Lower Extremities right lower extremity 4/5 gross, left lower extremity hip flexion 3/5, knee flexion 3/5, knee extension 4/5, dorsiflexion 4/5 Neuromuscular (Tone, Coordination, Reflexes) NT Sensory Vision: Hearing: Functional Sensation Right Lower Extremit: Intact Sensation Left Lower Extremity: Intact Transfers Functional [place] Measure 0=Not Assessed/NA 4=Minimal Assistance 1=Total Assistance 5=Supervision or Setup 2=Maximal Assistance 6=Modified [place] 3=Moderate Assistance 7=Complete [place] Transfers (B, C, W/C) (FIM): 4 Scootin Rollin Supine to/from Sit: 5 Sit to/from Stand: 4 bed t/f WC(FIM only if WC use): 4 Patient performs bed mobility with SBA, sit to stand CGA. Patient was dizzy after laying down in bed. Gait Mode of Locomotion: Walk Anticipated Mode of Locomotion: Walk Gait (FIM): 1 Distance: 30' Gait Level of Assist: 4 Gait Persons Needed: 1 Gait Assistive Device: FWW Comments/Gait Description Patient ambulated 30' with CGA using a rolling walker, she was occasionally unsteady but did not have a LOB Balance Sitting Static: Normal Sitting Dynamic: Normal Standing Static: Fair Standing Dynamic: Fair Treatment supine LE exercises bilateral x10 (AP, HS, QS) Assessment/Needs Patient has impaired mobility, strength, endurance, balance. She also seems confused, fall risk. Rehab Potential: Fair PT Short Term Goals Short Term Goals Time Frame: Oct 12, 2017 Transfers (B,C,W/C) (FIM): 5 Gait (FIM): 2 Gait Distance Comment: 50' Gait Level of Assist: 5 Gait Assistive Device: FWW PT Plan Problem List Problem List: Activity Tolerance, Functional Strength, Safety, Balance, Gait, Transfer, Bed Mobility Treatment/Plan Treatment Plan: Continue Plan of Care Treatment Plan: Bed Mobility, Education, Functional Activity Brandy, Functional Strength, Gait, Safety, Therapeutic Exercise, Transfers Treatment Duration: Oct 12, 2017 Frequency: 6 times per week Estimated Hrs Per Day: .25 hour per day (15-30') Patient and/or Family Agrees t: Yes Safety Risks/Education Patient Education: Gait Training, Transfer Techniques, Correct Positioning, Safety Issues Teaching Recipient: Patient Teaching Methods: Demonstration, Discussion Response to Teaching: Reinforcement Needed Discharge Recommendations Plan Patient will perform bed mobility and transfer training, balance and endurance training, functional strengthening, stair training, gait training, and education to improve functional mobility and independence at home. Therapy D/C Recommendations: Home w/ Family Support Time/GCodes Time In: 1510 Time Out: 1530 Total Billed Treatment Time: 20 Total Billed Treatment 1 visit EVM 20' G Codes Necessary: Yes PT/OT Therapy GCodes Therapy Functional Limitation: Physical Therapy Test(s)/Tool used to determine: Level of Assistance Scale Functional Limitation-Current Charge Code: MOBCUR Modifier: CJ Functional Limitation-Goal Charge Code: MOBGOAL Modifier: CI Functional Limitation-D/C Charge Codes: AJ SOLORIO PT Oct 05, 2017 15:33
[2017-10-05 16:40] VITALS: BP 135/71
--- NOTE | 2017-10-05 16:45 | Occupational Therapy Eval ---
OT Evaluation-General/PLF Medical Diagnosis Admission Date Oct 02, 2017 at 11:32 Medical Diagnosis: dehydration, post ictal confusion, chronic renal failure Onset Date: Oct 01, 2017 Therapy Diagnosis Therapy Diagnosis: decr self care, decr funct mobility, decreased safety awareness Height/Weight Height (Feet): 5 Height (Inches): 2.00 Weight (Pounds): 128 Weight (Ounces): 0.0 Precautions Precautions/Isolations: Seizure, Fall Prevention Safety Interventions: Bed Exit Alarm Referral Physician: Bruna Diaz MD Referral Reason: Evaluation/Treatment Medical History Pertinent Medical History: CAD, CVA, Dementia, GERD, Heart Failure, HTN, Hypothroidism, [place] Additional Medical History Seizures. gastric bypass. pacemaker. Cataracts. Anxiety. Asthma, pneumonia. Chronic diarrhea. Current History Found on floor in apartment at [place] [facility], altered mental status Social History Home: Apartment Current Living Status: Alone Entry Into Home: Level Entry ADL-Prior Level of Function ADL PLOF Comments pt reported that she has been able to manage her basic self care tasks. She only takes sponge baths. She has a SKIL worker 16 hours a week who mostly cleans for her, per her report. She has never driven and uses a 4WW to get around OT Current Status Subjective Pt seen in room, up in bed, agreeable to OT. No pain mentioned. Appearance Alert, cooperative. Oriented to name, location but not situation, year Mental Status/Objective Attachments: Saline Lock Current Dentures/Partials: No (appears to have no teeth) Upper Extremity ROM Grossly WFL bilat Upper Extremity Strength Grossly 4/5 bilat ADL-Treatment ADL-Current Pt was able to reach forward in bed to take off her slipper socks and put them back on. She got up to edge of bed without assistance. Sit to stand with SBA, using bed rail. Walked to bathroom with CGA, FWW, reporting some discomfort in her L hip ("from a long time ago"). She walked to bathroom slowly and with a limp. No LOB observed. Got on and off toilet with skilled cues to use grab bar, min assist and managed hygiene herself. She walked CGA, FWW to sink and was able to wash her hands with SBA. pt returned to bed and got back into bed with SBA. Pt left up in bed, 4 rails up, bed alarm on. Functional [place] Measure 0=Not Assessed/NA 4=Minimal Assistance 1=Total Assistance 5=Supervision or Setup 2=Maximal Assistance 6=Modified [place] 3=Moderate Assistance 7=Complete IndependenceIRFPAI Quality Coding Scale 6 Independent with activity with or without an assistive device 5 Patient requires set up or clean up by helper. Patient completes activity by themselves 4 Supervision or touching assist (CGA). [place] provide cues , steadying assist 3 The helper provides less than half the effort to complete the activity 2 The helper provides more than half the effort to complete the activity 1 Dependent. The helper does all the effort to complete an activity 7 Patient refused to complete or attempt activity 9 The patient did not perform the activity before the current illness or injury 88 Not attempted due to Medical conditions or safety concerns Toileting (FIM): 5 Toilet/Commode Transfer (FIM): 4 Education OT Patient Education: Modified ADL techniques, Purpose of tx/functional activities, Rehab process, Transfer techniques Teaching Recipient: Patient Teaching Methods: Discussion Response to Teaching: Verbalize Understanding, Return Demonstration OT Halfway Goals Halfway Goals Time Frame: Oct 12, 2017 Grooming(FIM): 6 Bathing(FIM): 5 Upper Body Dressing(FIM): 5 Lower Body Dressing(FIM): 5 Toileting(FIM): 6 Toilet/Commode Transfer(FIM): 6 Shower Transfer(FIM): 5 Additional Goals: 1-Demonstrate ADL Tasks, 2-Verbalize Understanding, 3- ImproveStrength/Brandy 1=Demonstrate adherence to instructed precautions during ADL tasks. 2=Patient will verbalize/demonstrate understanding of assistive devices/ modifications for ADL. 3=Patient will improve strength/tolerance for activity to enable patient to perform ADL's. OT Education/Plan Problem List/Assessment Assessment: Decreased Safety Aware, Decreased UE Strength, Dependent Transfers , Impaired Self-Care Skills Pt would benefit from skilled OT to increase her independence in basic self care and to decrease caregiver burden Discharge Recommendations Plan/Recommendations: Continue POC Treatment Plan/Plan of Care Treatment,Training & Education: Yes Patient would benefit from OT for education, treatment and training to promote independence in ADL's, mobility, safety and/or upper extremity function for ADL' s. Plan of Care: ADL Retraining, Functional Mobility, UE Funct Exercise/Act Treatment Duration: Oct 12, 2017 Frequency: 5 times per week Estimated Hrs Per Day: .25 hour per day (.25 to .5) Agreement: Yes Rehab Potential: Fair Time/GCodes Start Time: 15:38 Stop Time: 15:55 Total Time Billed (hr/min): 17 Billed Treatment Time visit, evaluation moderate intensity 17 minutes PT/OT Therapy GCodes Therapy Functional Limitation: Physical Therapy Test(s)/Tool used to determine: Level of Assistance Scale Functional Limitation-Current Charge Code: MIKAELA Modifier: KOSTA Functional Limitation-Goal Charge Code: KEN Modifier: EVELIO BARBA OT Oct 05, 2017 16:45
[2017-10-05 20:40] VITALS: BP 113/72
[2017-10-05] MEDS: SIMvastatin 20 MG (ZOCOR) TAB PO SCH (21:19)
[2017-10-06] VITALS: BP 109/61
[2017-10-06 04:00] VITALS: BP 115/61
[2017-10-06] MEDS: PANTOPRAZOLE 20 MG TABLET (PROTONIX) PO SCH (06:33)
[2017-10-06 08:00] VITALS: BP 131/63
[2017-10-06 09:22] LABS: CALCIUM 7.3 MG/DL (8.5-10.1); CREATININE SERUM 2.94 MG/DL (0.60-1.30); POTASSIUM 4.4 MMOL/L (3.6-5.0)
[2017-10-06] MEDS: LEVOTHYROXINE 150 MCG (LEVOTHROID) TAB PO SCH (09:32)
[2017-10-06] MEDS: LEVETIRACETAM 500 MG (KEPPRA) TAB PO SCH (09:32)
[2017-10-06] MEDS: CLOPIDOGREL 75 MG (PLAVIX) TABLET PO SCH (09:32)
[2017-10-06] MEDS: ASPIRIN E.C. 81 MG (ECOTRIN) TAB PO SCH (09:32)
[2017-10-06] MEDS: SODIUM BICARBONATE 650 MG TABLET (NON-FORMULARY) PO SCH (09:32)
[2017-10-06] MEDS: PHENYTOIN 30 MG PO SCH (09:32)
[2017-10-06] MEDS ORDERED: SODI650T PO (09:38)
--- NOTE | 2017-10-06 09:41 | D/C HH Face to Face Order ---
D/C Face to Face Orders Instructions for Patient Patient Instructions/FollowUp: Please take your medications as written. It is very important to takeyour medications consistently. You will need to see your physician next week to follow up this hospital stay. Physician to follow Patient: Dr Persaud Discharge Diet for Home: Low Sodium Diet Patient Data-Allergies,Ht & Wt Patient Allergies: Coded Allergies: No Known Drug Allergies (Unverified , 08/02/17) Height (Feet): 5 Height (Inches): 2.00 Weight (Pounds): 128 Weight (Ounces): 0.0 Home Health Need/Face to Face Date of Face to Face: Oct 06, 2017 Clinical Findings: Generalized weakness and fatigue, Shortness of breath I have seen Pt [id number]: Yes Discharged To: Home Diagnosis/Conditions: Chronic Kidney Disease, Seizure Disorder, Hypothyroidism Problems/Diagnosis/Condition: Patient is Homebound due to: Shortness of breath/distress Homebound Status Due to the above stated illness, injury or surgical procedure (medical condition or diagnosis) and associated clinical findings, the patient is homebound because of his/her inability to leave home except with aid of a supportive device and/or person AND leaving the home requires a considerable and taxing effort or is medically contraindicated. Pt req the following assistanc: Aid of another person, Walker Home Health Nursing Orders Home Health Services Order: Nursing Services, Pull Up Hand-Evaluate & Treat, Physical Therapy-Evaluate & Treat Home Health Infusion Therapy Line Start Date: Oct 01, 2017 Line Start Time: 0730 Line Type: Saline Lock Site Location: Antecubital Therapy Orders Therapy Orders: Physical Therapy Therapy Specific Orders: Eval assistive deivces, Teach strategies/cognitive deficits, Teach enviro modifications/safety, Gait training, Increase strength/ endurance Certify Stmt I certify that this patient is under my care and that I, a nurse practitioner or a physician; a assistant account manager working with me, had a face to face encounter that - meets the physician face to face encounter requirements with this patient as dated. ROSARIO ESCOBAR MD Oct 06, 2017 09:41
--- NOTE | 2017-10-06 09:44 | Discharge Summary-Hospitalist ---
Diagnosis/Chief Complaint Date of Admission Oct 02, 2017 at 11:32 Date of Discharge Discharge Date: Oct 06, 2017 Admission Diagnosis Assessment: Found down at night for [place] apartment unwitnessed but presumed seizure episode on chronic seizure disorder Worsened acute renal failure on chronic renal failure not a hemodialysis candidate Severe chronic debility I would recommend residential placement instead of apartment without 24/7 care Dementia Discharge Diagnosis seizure (1) Metabolic acidosis Status: Acute Assessment & Plan: Likely due to worsening CKD Creatinine improved and acidosis improving Continue Bicarb at discharge (2) Seizure disorder Status: Acute Assessment & Plan: Likely missed doses though she denies this Continue home meds Seizure Precautions (3) Chronic renal failure Status: Acute Assessment & Plan: Continue to monitor Creatinine worsened yesterday, labs to be done still today Continue Oral bicarb Interested in palliative care consult but not ready for hospice Palliative nurse consulted for education I called and spoke with son as well about this and my concerns regarding her health, he understands and will be here Monday Discussed other options of treatment and she states she does not want to see a fish bait picker or ever be on dialysis (4) Hypothyroidism Status: Chronic Assessment & Plan: Continue Synthroid tsh >120- likely missing doses as well but denies this adamantly (5) CAD (coronary artery disease) Status: Chronic Assessment & Plan: Continue ASA and Plavix (6) Discharge planning issues Assessment & Plan: Was to DC to SNF during last admission Advised her to DC to SNF if able but will need vermin exterminator care after that as she is not managing her medications well She declines and states she will never go to a NH. I expressed my concerns about her safety at home and that she could ultimately due to missed medications. She verbalized understanding but again refused any NH placement Again declined SNF, SW discussed with machine adjuster leader case trim who will provide 24/7 care for her and ensure she is taking her medications as written I called and discussed with son as well who will be here on Monday to check on her and facilitate follow up with her PCP I called her PCP's office and left message with Dr Persaud's nurse regarding this hospital stay and concerns about compliance (7) Prophylactic measure Assessment & Plan: Heparin Low Na diet Saline lock Discharge Summary Discharge Physical Exam Allergies: Coded Allergies: No Known Drug Allergies (Unverified , 08/02/17) Vitals & I&Os Vital Signs Date Time Temp Pulse Resp B/P (MAP) Pulse Ox O2 Delivery O2 Flow Rate FiO2 10/06/17 12:00 96.7 73 16 123/58 (79) 96 Nasal Cannula 2.00 General Appearance: Alert, No Acute Distress Respiratory: Clear to Auscultation Cardiovascular: Regular Rate Neuro: Normal Speech Hospital Course Pt is a 76yoCF with a PMH of CKD, seizure disorder who presented to the ER after being found unresponsive in her apartment from presumed seizure. She was found to be severely acidotic as well presumably from worsening kidney disease. Her mentation improved and she was started on oral bicarbonate supplements. As discussed above her discharge planing was quite extensive and SNF was strongly recommended to both her and her son. She declined SNF placement and was discharged home with arrangements as above. Labs (last 24 hrs) Patient resulted labs reviewed. Pending Labs Discussion & Recommendations Discharge Planning: >30 minutes discharge planning Discharge Home Medications: Active Scripts Active Sodium Bicarbonate 650 Mg Tablet 650 Mg PO TID Reported Clopidogrel (Clopidogrel Bisulfate) 75 Mg Tablet 75 Mg PO DAILY Levetiracetam 500 Mg Tablet 500 Mg PO DAILY Dilantin (Phenytoin Sodium Extended) 30 Mg Capsule 30 Mg PO BID Aspirin EC (Aspirin) 81 Mg Tablet.dr 81 Mg PO DAILY Vitamin D3 (Cholecalciferol (Vitamin D3)) 1,000 Unit Capsule 1,000 Unit PO DAILY Calcium Magnesium + D Tablet (Calcium Carb/Magnesium Oxid/D3) 1 Each Tablet 1 Tab PO BID Omeprazole 20 Mg Capsule.dr 20 Mg PO DAILY Levothyroxine Sodium 150 Mcg Tablet 300 Mcg PO DAILY TAKES 2 (150MCG) TABLETS Super B Complex (Vitamin B Complex & Vit C No.4) 150 Mg Tablet 150 Mg PO DAILY Hair, Skin & Nails Caplet (Multivits Min/Iron/FA/Herb#186) 1 Each Tablet 1 Tab PO DAILY Vitamin C (Ascorbic Acid) 1,000 Mg Tablet 1,000 Mg PO HS Metoprolol Succinate 50 Mg Tab.er.24h 50 Mg PO BID Simvastatin 20 Mg Tablet 20 Mg PO HS Instructions to patient/family Please see electronic discharge instructions given to patient. Clinical Quality Measures DVT/VTE Risk/Contraindication: Risk Factor Score Per Nursin RFS Level Per Nursing on Admit: 4+=Very High Copy Copies To 1: MIKAEL PERSAUD DO Problem Qualifiers (1) Chronic renal failure: Chronic kidney disease stage: stage 4 (severe) Qualified Codes: N18.4 - Chronic kidney disease, stage 4 (severe) (2) Hypothyroidism: Hypothyroidism type: unspecified Qualified Codes: E03.9 - Hypothyroidism, unspecified ROSARIO ESCOBAR MD Oct 06, 2017 09:44
[2017-10-06 12:00] VITALS: BP 123/58
== END 2017-10-06 12:30 | disposition home health service (06) | DRG 683 ==
LOC: EDUNIT# 07:23 → ER 07:25 → UNDOADMOB 09:00 → 4TH 09:00 → OBSVTOIN 10-02 11:32 → INTOOBSV 10-02 11:32
PROVIDERS: ADMIT Internal Medicine; ATTEND Internal Medicine
DX: N17.9 Acute kidney failure, unspecified (principal); E87.2 Acidosis; I12.9 Hypertensive chronic kidney disease with stage 1 through stage 4 chronic kidney disease, or unspecified chronic kidney disease; N18.4 Chronic kidney disease, stage 4 (severe); E86.0 Dehydration; G40.909 Epilepsy, unspecified, not intractable, without status epilepticus; I25.10 Atherosclerotic heart disease of native coronary artery without angina pectoris; E03.9 Hypothyroidism, unspecified; Z66 Do not resuscitate; F03.90 Unspecified dementia, unspecified severity, without behavioral disturbance, psychotic disturbance, mood disturbance, and anxiety; F41.9 Anxiety disorder, unspecified; J45.909 Unspecified asthma, uncomplicated; M19.91 Primary osteoarthritis, unspecified site; R53.81 Other malaise; Z95.0 Presence of cardiac pacemaker; Z98.84 Bariatric surgery status
CPT/HCPCS: 36415; 70450; 71045; 72125; 80048; 80053; 80306; 80320; 81000; 82550; 83605; 83874; 84439; 84443; 84484; 85025; 86141; 93005; 96361; 96365; G0378

== ENCOUNTER 2017-10-10 20:52 | Emergency (ER) | payer MEDICARE, MEDICAID ==
[~2017-10-10] VITALS: Ht 157.5 cm; Wt 58.1 kg
[~2017-10-10 20:52] MED LIST changes: +SODI650T PO
[2017-10-10] MEDS ORDERED: FURO40TA4 (20:58)
[2017-10-10] MEDS ORDERED: LACTATED RINGERS 1,000 ML IV STA (21:18)
--- NOTE | 2017-10-10 21:28 | ED GI ---
General Chief Complaint: Rect Problems Stated Complaint: RECTAL BLEEDING Nursing Triage Note: rectal bleed Sepsis Screen: No Definite Risk Source of Information: Patient, EMS Exam Limitations: No Limitations History of Present Illness Date Seen by Provider: Oct 10, 2017 Time Seen by Provider: 21:00 Initial Comments Patient presents to the ER by EMS with a chief complaint that about a half hour prior to the family calling EMS she started experiencing some bright red bleeding per rectum. The patient has a history of coronary disease with no stents but she is on aspirin and Plavix. She does not follow with a events solutions consultant just with Dr. Persaud. She's not having any pain, shortness of breath , chest pain, nausea, vomiting or diarrhea. She has no recent history of rectal bleeding. No trauma or falls. Patient does not know her medication history. Says she has no allergies to medicines and does not smoke or drink. She does not remember having a colonoscopy. Discharge note from 10/06/17 4 days ago indicates she was there for being found down possible seizure-like activity. She had severe debility and recommended again to go to a [facility] that the patient has declined stating she'll never go to a custodial or [facility]. There is issues with missed medications and acute on chronic renal failure. Creatinine then was 3 with a GFR 15. Patient was not a candidate for dialysis and was recommended for palliative care and hospice. The patient did want to have a palliative care consultation but declined hospice at this time. Allergies and Home Medications Allergies Coded Allergies: No Known Drug Allergies (Unverified , 08/02/17) Home Medications Ascorbic Acid 1,000 Mg Tablet, 1,000 MG PO HS, (Reported) Aspirin 81 Mg Tablet.dr, 81 MG PO DAILY, (Reported) Calcium Carb/Magnesium Oxid/D3 1 Each Tablet, 1 TAB PO BID, (Reported) Cholecalciferol (Vitamin D3) 1,000 Unit Capsule, 1,000 UNIT PO DAILY, (Reported) Clopidogrel Bisulfate 75 Mg Tablet, 75 MG PO DAILY, (Reported) Levetiracetam 500 Mg Tablet, 500 MG PO DAILY, (Reported) Levothyroxine Sodium 150 Mcg Tablet, 300 MCG PO DAILY, (Reported) TAKES 2 (150MCG) TABLETS Metoprolol Succinate 50 Mg Tab.er.24h, 50 MG PO BID, (Reported) Multivits Min/Iron/FA/Herb#186 1 Each Tablet, 1 TAB PO DAILY, (Reported) Omeprazole 20 Mg Capsule.dr, 20 MG PO DAILY, (Reported) Phenytoin Sodium Extended 30 Mg Capsule, 30 MG PO BID, (Reported) Simvastatin 20 Mg Tablet, 20 MG PO HS, (Reported) Sodium Bicarbonate 650 Mg Tablet, 650 MG PO TID Prescribed by: ROSARIO ESCOBAR on 10/06/17 0938 Vitamin B Complex & Vit C No.4 150 Mg Tablet, 150 MG PO DAILY, (Reported) Patient Home Medication List Home Medication List Reviewed: Yes Review of Systems Constitutional: No chills, No diaphoresis EENTM: No Blurred Vision, No Double Vision Respiratory: Denies Cough, Denies Shortness of Air Cardiovascular: Denies Chest Pain, Denies Irregular Heart Rate, Denies Lightheadedness Gastrointestinal: Denies Constipated, Denies Diarrhea, Denies Nausea, Denies Poor Fluid Intake, Rectal Bleeding, Denies Vomiting Genitourinary: Denies Burning, Denies Discharge, Denies Drainage Musculoskeletal: No back pain, No joint pain Skin: No pruritus, No rash Psychiatric/Neurological: Denies Headache, Denies Numbness, Denies Paresthesia , Seizure Past [id number]-Vtbpoc-Jhxfdt Hx Patient Social History Alcohol Use: Denies Use Recreational Drug Use: No Smoking Status: Never a Smoker 2nd Hand Smoke Exposure: Yes Recent Foreign Travel: No Contact w/Someone Who Travel: No Recent Infectious Disease Expo: No Recent Hopitalizations: No Immunizations Up To Date Tetanus Booster (TDap): Unknown Date of Pneumonia Vaccine: Jul 20, 2011 Date of Influenza Vaccine: Aug 07, 2017 Seasonal Allergies Seasonal Allergies: No Surgeries History of Surgeries: Yes (GASTRIC BYPASS) Surgeries: Section, Hysterectomy Respiratory History of Respiratory Disorde: Yes Respiratory Disorders: Asthma, Pneumonia Currently Using CPAP: No Currently Using BIPAP: No Cardiovascular History of Cardiac Disorders: Yes (pacemaker) Cardiac Disorders: Hypertension Neurological History of Neurological Disord: Yes Neurological Disorders: Dementia, Seizure Disorder Reproductive System Hx Reproductive Disorders: No Sexually Transmitted Disease: No 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 Genitourinary History of Genitourinary Disor: No Genitourinary Disorders: Renal Failure Gastrointestinal History of Gastrointestinal Di: Yes Gastrointestinal Disorders: Gastroesophageal Reflux, Chronic Diarrhea Musculoskeletal History of Musculoskeletal Dis: No Musculoskeletal Disorders: Arthritis Endocrine History of Endocrine Disorders: Yes HEENT History of HEENT Disorders: Yes HEENT Disorders: Cataract Cancer History of Cancer: No Psychosocial History of Psychiatric Problem: Yes Behavioral Health Disorders: Anxiety Integumentary History of Skin or Integumenta: No Blood Transfusions History of Blood Disorders: No Family Medical History Significant Family History: CAD Over 55 Years Old, Hypertension Family Medial History: Cardiovascular disease Completed stroke Hypertension Seizure disorder No Family History of: AIDS Ness's disease Alcoholism Alzheimer's disease Aphasia Arthritis Asthma Cancer of mouth Cataracts Colon cancer Congenital disease Congenital heart disease Coronary thrombosis Cystic fibrosis Deafness or hearing loss Dementia Diabetes mellitus Drug abuse Dysphasia Fibrocystic disease of breast Gastroenteritis Glaucoma Headache disorder Hypercholesterolemia Infertility Kidney disease Myocardial infarction Neoplasm Not obtainable due to adoption Osteoporosis Parkinson's disease Prostate cancer Psychosocial problem Respiratory disorder Severe allergy Thyroid disease Tuberculosis Visual disorder Physical Exam Vital Signs VS - Last 72 Hours, by Label 10/10/17 21:00 Temp 98.8 Pulse 76 Resp 16 B/P (MAP) 141/89 (106) Pulse Ox 95 O2 Delivery Nasal Cannula O2 Flow Rate 2.00 Capillary Refill : Less Than 3 Seconds General Appearance: WD/WN, no apparent distress HEENT: PERRL/EOMI, pharynx normal Neck: non-tender, normal inspection Respiratory: chest non-tender, lungs clear Cardiovascular: normal peripheral pulses, regular rate, rhythm Gastrointestinal: normal bowel sounds, non tender, soft Genital/Rectal: other (patient has a living in size erythematous, friable rectal prolapse. It is not easily reducible and the patient is having too much pain to try any further.) Extremities: non-tender, normal inspection, no pedal edema, no calf tenderness , normal capillary refill Neurologic/Psychiatric: alert, normal mood/affect Skin: normal color Date of ETT Placement: Aug 03, 2017 Time of ETT Placement: 0100 Progress/Results/Core Measures Results/Orders Lab Results Laboratory Tests Test 10/10/17 21:00 Range/Units White Blood Count 8.3 4.3-11.0 10^3/uL Red Blood Count 3.54 L 4.35-5.85 10^6/uL Hemoglobin 11.6 11.5-16.0 G/DL Hematocrit 36 35-52 % Mean Corpuscular Volume 101 H 80-99 FL Mean Corpuscular Hemoglobin 33 25-34 PG Mean Corpuscular Hemoglobin Concent 32 32-36 G/DL Red Cell Distribution Width 16.6 H 10.0-14.5 % Platelet Count 187 130-400 10^3/uL Mean Platelet Volume 13.8 H 7.4-10.4 FL Neutrophils (%) (Auto) 67 42-75 % Lymphocytes (%) (Auto) 18 12-44 % Monocytes (%) (Auto) 8 0-12 % Eosinophils (%) (Auto) 6 0-10 % Basophils (%) (Auto) 0 0-10 % Neutrophils # (Auto) 5.6 1.8-7.8 X 10^3 Lymphocytes # (Auto) 1.5 1.0-4.0 X 10^3 Monocytes # (Auto) 0.6 0.0-1.0 X 10^3 Eosinophils # (Auto) 0.5 H 0.0-0.3 10^3/uL Basophils # (Auto) 0.0 0.0-0.1 10^3/uL Prothrombin Time 13.8 12.2-14.7 SEC INR Comment 1.1 0.8-1.4 Activated Partial Thromboplast Time 36 H 24-35 SEC Sodium Level 146 H 135-145 MMOL/L Potassium Level 3.6 3.6-5.0 MMOL/L Chloride Level 117 H 98-107 MMOL/L Carbon Dioxide Level 15 L 21-32 MMOL/L Anion Gap 14 5-14 MMOL/L Blood Urea Nitrogen 43 H 7-18 MG/DL Creatinine 3.18 H 0.60-1.30 MG/DL Estimat Glomerular Filtration Rate 14 BUN/Creatinine Ratio 14 Glucose Level 104 70-105 MG/DL Calcium Level 6.9 L 8.5-10.1 MG/DL Magnesium Level 1.0 *L 1.8-2.4 MG/DL Total Bilirubin 0.5 0.1-1.0 MG/DL Aspartate Amino Transf (AST/SGOT) 16 5-34 U/L Alanine Aminotransferase (ALT/SGPT) 15 0-55 U/L Alkaline Phosphatase 74 40-136 U/L Total Protein 6.1 L 6.4-8.2 GM/DL Albumin 3.8 3.2-4.5 GM/DL My Orders Orders - RANI MORGAN Cbc With Automated Diff (10/10/17 21:18) Comprehensive Metabolic Panel (10/10/17 21:18) Magnesium (10/10/17 21:18) Saline Lock/Iv-Start (10/10/17 21:18) Saline Lock/Iv-Start (10/10/17 21:18) Lactated Ringers (Lr 1000 Ml Iv Solution (10/10/17 21:18) Protime With Inr (10/10/17 21:20) Partial Thromboplastin Time (10/10/17 21:20) Magnesium Oxide Tablet (Mag Ox Tablet) (10/10/17 22:45) Vital Signs/I&O Vital Sign - Last 12Hours 10/10/17 21:00 Temp 98.8 Pulse 76 Resp 16 B/P (MAP) 141/89 (106) Pulse Ox 95 O2 Delivery Nasal Cannula O2 Flow Rate 2.00 Blood Pressure Mean: 106 Progress Note : Time: 22:43 Progress Note Her prolapse is reduced and her hemoglobin is fine. Nursing asked me indicated by phone with family. Her magnesium was low but this is not new and she has stable GFR from last visit which is to say it's stage 4/5 chronic kidney disease. She is not a candidate for dialysis and has elected to do palliative care for this so we will let her go home. We'll have her take oral magnesium at home and follow up with the primary care physician either this week or next. It is Consults Consults : Consulting Physician: SHARRI WNE DO Consults Notes Discussed the case and asked him to come and talk to the patient about her options and he recommends if it's edematous to put some sugar out to help with the swelling and he will be down after he is done with a surgery. Sugar was applied and about 10-15 minutes later the surgeon presented to the ER and easily reduced the rectum. Discussed options with patient and is willing to see her in clinic if she would like to pursue this further. He did a further recommendations that gentle pressure being applied to the rectum and have her take a deep breath and a distractor as well as you sugar as necessary in the future. He recommends that if it prolapses again that it be reduced immediately or return. If she wants a surgical intervention she'll probably have to go to a colorectal surgeon discuss this intervention. Departure Impression Impression: Primary Impression: Rectal mucosa prolapse Additional Impressions: Hypomagnesemia Kidney disease, chronic, stage V (end stage, EGFR < 15 ml/min) Disposition: 01 HOME, SELF-CARE Condition: Improved Departure-Patient Inst. Decision time for Depature: 22:46 Referrals: MIKAEL PERSAUD DO (PCP/Family) Primary Care Physician Patient Instructions: Rectal Prolapse in Adults Add. Discharge Instructions: You may follow-up with the primary care physician or the local surgeon Dr. Wen by calling his office at [phone] for an appointment if you want further consultation for your prolapsed rectum. If you want surgical intervention you' ll need to see a colorectal surgeon and your primary care physician can also help you with a referral to discuss these options. If the rectum prolapses again use distraction and apply gentle pressure to the prolapsed rectum and have her take a deep sharp breath then and just gently guide it back in. It will need to be reduced relatively quickly. If this cannot be reduced at home by nursing staff then you can return to the ER for management. Prevention of this can be obtained by using stool softeners such as Colace 200 mg a day and eating plenty of fiber and drinking lots of fluids to have easy bowel movements and do not strain to have a bowel movement. Would also be recommended that if you're having a hard time passing a stool to use 17 g of MiraLAX mixed into 6-8 ounces of fluid of your choice once or twice a day as needed for laxative. Take one tablet of the magnesium oxide 400 mg twice a day for the next week and follow up either later this week or early next week with your primary care physician for further management of your low magnesium. All discharge instructions reviewed with patient and/or family. Voiced understanding. Scripts Magnesium Oxide (Magnesium) 400 Mg Tablet 400 MG PO BID for 7 Days, #14 TAB 0 Refills Prov: RANI MORGAN 10/10/17 Copy Copies To 1: SHARRI WEN DO; MIKAEL PERSAUD TITUS J Oct 10, 2017 21:28
[2017-10-10 21:32] LABS: INR 1.1 (0.8-1.4); PROTHROMBIN TIME PATIENT 13.8 SEC (12.2-14.7)
[2017-10-10 22:19] LABS: BASOPHILS % (AUTO) 0 % (0-10); EOSINOPHILS # (AUTO) 0.5 10^3/uL (0.0-0.3); EOSINOPHILS % (AUTO) 6 % (0-10); HEMATOCRIT 36 % (35-52); HEMOGLOBIN 11.6 G/DL (11.5-16.0); LYMPHOCYTES # (AUTO) 1.5 X 10^3 (1.0-4.0); LYMPHOCYTES % (AUTO) 18 % (12-44); MEAN CORPUSCULAR HEMOGLOBIN 33 PG (25-34); MEAN CORPUSCULAR HGB CONC 32 G/DL (32-36); MEAN CORPUSCULAR VOLUME 101 FL (80-99); MEAN PLATELET VOLUME 13.8 FL (7.4-10.4); MONOCYTES # (AUTO) 0.6 X 10^3 (0.0-1.0); MONOCYTES % (AUTO) 8 % (0-12); NEUTROPHILS # (AUTO) 5.6 X 10^3 (1.8-7.8); NEUTROPHILS % (AUTO) 67 % (42-75); PLATELET COUNT 187 10^3/uL (130-400); RED BLOOD COUNT 3.54 10^6/uL (4.35-5.85); RED CELL DISTRIBUTION WIDTH 16.6 % (10.0-14.5); WHITE BLOOD COUNT 8.3 10^3/uL (4.3-11.0)
[2017-10-10 22:39] LABS: ALBUMIN 3.8 GM/DL (3.2-4.5); BILIRUBIN,TOTAL 0.5 MG/DL (0.1-1.0); CALCIUM 6.9 MG/DL (8.5-10.1); CREATININE SERUM 3.18 MG/DL (0.60-1.30); POTASSIUM 3.6 MMOL/L (3.6-5.0); TOTAL PROTEIN 6.1 GM/DL (6.4-8.2)
[2017-10-10] MEDS ORDERED: MAGNESIUM OXIDE (MAG-OX)400 MG TAB PO ONE (22:45)
[2017-10-10] MEDS ORDERED: MAGN400T39 PO (22:47)
[2017-10-10 22:54] VITALS: BP 141/89
--- NOTE | 2017-10-11 21:24 | Consultation ---
History of Present Illness History of Present Illness Patient Consulted On(josey/time) 10/10/17 22:19 Date Seen by Provider: Oct 10, 2017 Time Seen by Provider: 22:05 History of Present Illness CC rectal bleeding seen and evaluated in ED for rectal prolapse. Patient is a 76 year old female who prior to arrival was having bright red blood per rectum. Patient states that parto f rectum has come out as well. She has some pain when they tried to push it back earlier. Patient is demented and not oriented to person or time and no family present at bedside. Limited history due to patient. Allergies and Home Medications Allergies Coded Allergies: No Known Drug Allergies (Unverified , 08/02/17) Home Medications Ascorbic Acid 1,000 Mg Tablet, 1,000 MG PO HS, (Reported) Aspirin 81 Mg Tablet.dr, 81 MG PO DAILY, (Reported) Calcium Carb/Magnesium Oxid/D3 1 Each Tablet, 1 TAB PO BID, (Reported) Cholecalciferol (Vitamin D3) 1,000 Unit Capsule, 1,000 UNIT PO DAILY, (Reported) Clopidogrel Bisulfate 75 Mg Tablet, 75 MG PO DAILY, (Reported) Levetiracetam 500 Mg Tablet, 500 MG PO DAILY, (Reported) Levothyroxine Sodium 150 Mcg Tablet, 300 MCG PO DAILY, (Reported) TAKES 2 (150MCG) TABLETS Magnesium Oxide 400 Mg Tablet, 400 MG PO BID Prescribed by: RANI MOFFETT on 10/10/177 Metoprolol Succinate 50 Mg Tab.er.24h, 50 MG PO BID, (Reported) Multivits Min/Iron/FA/Herb#186 1 Each Tablet, 1 TAB PO DAILY, (Reported) Omeprazole 20 Mg Capsule.dr, 20 MG PO DAILY, (Reported) Phenytoin Sodium Extended 30 Mg Capsule, 30 MG PO BID, (Reported) Simvastatin 20 Mg Tablet, 20 MG PO HS, (Reported) Sodium Bicarbonate 650 Mg Tablet, 650 MG PO TID Prescribed by: ROSARIO ESCOBAR on 10/06/17 0938 Vitamin B Complex & Vit C No.4 150 Mg Tablet, 150 MG PO DAILY, (Reported) Patient Home Medication List Home Medication List Reviewed: Yes Past Yqcxmxf-Kirpdw-Tcirfb Hx Patient Social History Alcohol Use: Denies Use Recreational Drug Use: No Smoking Status: Never a Smoker 2nd Hand Smoke Exposure: Yes Recent Foreign Travel: No Contact w/Someone Who Travel: No Recent Infectious Disease Expo: No Recent Hopitalizations: No Immunizations Up To Date Tetanus Booster (TDap): Unknown Date of Pneumonia Vaccine: Jul 20, 2011 Date of Influenza Vaccine: Aug 07, 2017 Seasonal Allergies Seasonal Allergies: No Surgeries History of Surgeries: Yes (GASTRIC BYPASS) Surgeries: Section, Hysterectomy Respiratory History of Respiratory Disorde: Yes Respiratory Disorders: Asthma, Pneumonia Cardiovascular History of Cardiac Disorders: Yes (pacemaker) Cardiac Disorders: Hypertension Neurological History of Neurological Disord: Yes Neurological Disorders: Dementia, Seizure Disorder Reproductive System Hx Reproductive Disorders: No Sexually Transmitted Disease: No HIV/AIDS: No 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 Genitourinary History of Genitourinary Disor: No Genitourinary Disorders: Renal Failure Gastrointestinal History of Gastrointestinal Di: Yes Gastrointestinal Disorders: Gastroesophageal Reflux, Chronic Diarrhea Musculoskeletal History of Musculoskeletal Dis: No Musculoskeletal Disorders: Arthritis Endocrine History of Endocrine Disorders: Yes HEENT History of HEENT Disorders: Yes HEENT Disorders: Cataract Cancer History of Cancer: No Psychosocial History of Psychiatric Problem: Yes Behavioral Health Disorders: Anxiety Integumentary History of Skin or Integumenta: No Blood Transfusions History of Blood Disorders: No Family Medical History Significant Family History: CAD Over 55 Years Old, Hypertension Family Medial History: Cardiovascular disease Completed stroke Hypertension Seizure disorder No Family History of: AIDS [place]ib[place]'s disease Alcoholism Alzheimer's disease Aphasia Arthritis Asthma Cancer of mouth Cataracts Colon cancer Congenital disease Congenital heart disease Coronary thrombosis Cystic fibrosis Deafness or hearing loss Dementia Diabetes mellitus Drug abuse Dysphasia Fibrocystic disease of breast Gastroenteritis Glaucoma Headache disorder Hypercholesterolemia Infertility Kidney disease Myocardial infarction Neoplasm Not obtainable due to adoption Osteoporosis Parkinson's disease Prostate cancer Psychosocial problem Respiratory disorder Severe allergy Thyroid disease Tuberculosis Visual disorder Review of Systems-General Constitutional: no symptoms reported EENTM: no symptoms reported Respiratory: no symptoms reported Cardiovascular: no symptoms reported Gastrointestinal: see HPI Genitourinary: no symptoms reported Musculoskeletal: no symptoms reported Skin: no symptoms reported Psychiatric/Neurological: No Symptoms Reported Physical Exam-General Problems Physical Exam Vital Signs Vital Signs - First Documented 10/10/17 21:00 Temp 98.8 Pulse 76 Resp 16 B/P (MAP) 141/89 (106) Pulse Ox 95 O2 Delivery Nasal Cannula O2 Flow Rate 2.00 Capillary Refill : Less Than 3 Seconds General Appearance: no apparent distress HEENT: normal ENT inspection Neck: supple, normal inspection Respiratory: no accessory muscle use Cardiovascular: regular rate, rhythm Gastrointestinal: non tender, soft Rectal: other (irritated rectal mucosa and some bright red blood. rectum prolapsed approximately 1.5 inches) Back: normal inspection Extremities: non-tender, normal inspection Neurologic/Psychiatric: alert, No oriented x 3 Skin: warm/dry Lymphatic: no adenopathy Assessment/Plan Assessment/Plan Assessment/Plan bright red blood per rectum rectal prolapse it was attempted by Dr. Moffett to reduce in ER and unsuccessful, sugar was placed on it before i evaluated. I arrived and positioned patient on left lateral recumbent position and placed pressure on was able to reduce it. patient feeling better after it reduced. Patient is demented and no family present at this time. Would recommend if occurs again to try and reduce or be evaluated at that time when it occurs. Patient should keep stools soft and try not to strain. If continues to occur rectopexy, Altemeier procedure or end colostomy are all surgical options. would need long discussion on which would be best for patient if any due to comorbidities and expectations SHARRI WEN DO Oct 11, 2017 21:24
== END 2017-10-10 23:12 | disposition home or self-care (01) ==
LOC: ER 20:52 → EDUNIT# 20:52 → ER 23:12
DX: K62.5 Hemorrhage of anus and rectum (principal); K62.3 Rectal prolapse; I12.0 Hypertensive chronic kidney disease with stage 5 chronic kidney disease or end stage renal disease; N18.5 Chronic kidney disease, stage 5; E83.42 Hypomagnesemia; J45.909 Unspecified asthma, uncomplicated; K21.9 Gastro-esophageal reflux disease without esophagitis; F41.9 Anxiety disorder, unspecified; F03.90 Unspecified dementia, unspecified severity, without behavioral disturbance, psychotic disturbance, mood disturbance, and anxiety; G40.909 Epilepsy, unspecified, not intractable, without status epilepticus; Z87.01 Personal history of pneumonia (recurrent); Z95.2 Presence of prosthetic heart valve; Z90.710 Acquired absence of both cervix and uterus; Z87.59 Personal history of other complications of pregnancy, childbirth and the puerperium; Z77.22 Contact with and (suspected) exposure to environmental tobacco smoke (acute) (chronic); Z79.82 Long term (current) use of aspirin; Z98.84 Bariatric surgery status
CPT/HCPCS: 36415; 80053; 83735; 85025; 85610; 85730; 96360